=== PATIENT | female | born 1940 | race Caucasian/White ===

== ENCOUNTER 2017-05-27 10:00 | Inpatient (IN) | payer MEDICARE ==
[2017-06-04] MEDS ORDERED: Sodium Chloride 0.9% 10 ML ONE (06:24)
[2017-06-04] MEDS ORDERED: CEFAZOLIN/Water 2 GM/20 ML SYRINGE ONE (06:26)
[2017-06-04] MEDS ORDERED: Scopolamine 1.5 mg/72 hour Patch ONE (06:48)
[2017-06-04] MEDS ORDERED: Fentanyl 100 MCG/2 ML VIAL ONE (07:05)
[2017-06-04] MEDS ORDERED: Ondansetron HCl/PF 4 MG/2 ML Vial IVP PRN (09:31)
[2017-06-04] MEDS ORDERED: Promethazine HCl 25 MG/ML VIAL SLOW IVP PRN (09:31)
[2017-06-04] MEDS ORDERED: Promethazine HCl 25 MG/ML VIAL IM PRN ×2 (09:31→10:04)
[2017-06-04] MEDS ORDERED: Fentanyl 250 MCG/5 ML VIAL ONE (09:41)
--- NOTE | 2017-06-04 10:02 | OP ---
DATE OF PROCEDURE: 06/04/2017 SURGEON: Lior Diggs M.D. DATA GOVERNANCE CONSULTANT: Stephen. PROCEDURE: Removal of hardware L4-5, exploration of spinal fusion L4-5, L3-4 laminectomy, posterolat eral arthrodesis, demineralized bone matrix, local morselized autograft, pedicle screw instrumentatio n L3-4. PROCEDURE IN DETAIL: The patient was brought into the operating room, intubated. She was rolled in the prone position on gel-filled chest rolls. The previous incision was reopened and extended, and t he L3 through L5 region was identified. We identified the prior hardware and removed the nuts and ro ds. We explored the L4-5 region and it seemed to be solid. We next performed an L3-4 laminectomy wi thout complication and completely decompressed the neural elements. Pedicle screws were placed at L3 bilaterally using lateral fluoroscopic guidance. A sy was secured between L3 and L4 connected by n uts which were final tightened. The wound was then extensively irrigated, immaculate hemostasis was secured. A combination of demineralized bone matrix and local morselized autograft was laid over the laminar and posterolateral surfaces for the purpose of arthrodesis. Vancomycin powder was applied a nd the wound was closed in anatomic layers.
[2017-06-04] MEDS ORDERED: Mag-Al 1200 mg/1200 mg/30 ML UDCUP PO PRN (10:04)
[2017-06-04] MEDS ORDERED: Ondansetron HCl/PF 4 MG/2 ML Vial IM PRN (10:04)
[2017-06-04] MEDS ORDERED: Acetaminophen 325 MG TAB PO PRN (10:04)
[2017-06-04] MEDS ORDERED: traMADol HCl 50 MG TAB PO PRN (10:04)
[2017-06-04] MEDS ORDERED: Promethazine HCl 12.5 MG SUPP PR PRN (10:04)
[2017-06-04] MEDS ORDERED: Acetaminophen 650 MG Suppository PR PRN (10:04)
[2017-06-04] MEDS ORDERED: Promethazine 25 MG TAB PO PRN (10:04)
[2017-06-04] MEDS ORDERED: Milk Of Magnesia 30 ML UDCUP PO PRN (10:04)
[2017-06-04] MEDS ORDERED: Morphine 4 MG/ML Carpuject SLOW IVP PRN (10:04)
[2017-06-04] MEDS ORDERED: Morphine 4 MG/ML VIAL ONE (10:19)
[2017-06-04] MEDS ORDERED: Propofol 200 MG/20 ML VIAL ONE (10:39)
[2017-06-04] MEDS ORDERED: Dexamethasone 20 MG/5 ML VIAL ONE (10:39)
[2017-06-04] MEDS ORDERED: Ondansetron HCl/PF 4 MG/2 ML Vial ONE (10:39)
[2017-06-04] MEDS ORDERED: Glycopyrrolate 0.2 MG/ML 5 ML SYRINGE ONE (10:39)
[2017-06-04] MEDS ORDERED: ePHEDrine/0.9% NaCl/PF SYRINGE 50 mg/10 ml ONE (10:39)
[2017-06-04] MEDS ORDERED: Lidocaine 1% PF 5 ML VIAL ONE (10:39)
[2017-06-04] MEDS ORDERED: Metoclopramide HCl 10 MG/2 ML VIAL ONE (10:39)
[2017-06-04] MEDS ORDERED: Cyclobenzaprine 10 MG TAB PO PRN (11:35)
[2017-06-04] MEDS ORDERED: Ipratropium Bromide 0.06% Nasal Inhaler 15ml EA NARE PRN (11:36)
[2017-06-04] MEDS ORDERED: Hydrochlorothiazide 25 MG TAB PO PRN (11:36)
[2017-06-04] MEDS: CEFAZOLIN/Water 2 GM/20 ML SYRINGE SLOW IVP SCH (13:38)
[2017-06-04] MEDS: tiZANidine HCl 4 MG TAB PO PRN ×2 (13:41→20:03)
[2017-06-04] MEDS: traMADol HCl 50 MG TAB PO PRN ×2 (13:41→20:03)
--- NOTE | 2017-06-04 14:45 | CON ---
DATE OF CONSULTATION: 06/04/2017 ADMITTING PHYSICIAN: Dr. Diggs CONSULTING PHYSICIAN: Dr. Jesse Redding HISTORY OF PRESENT ILLNESS: The patient is a 77-year-old female. She is status post symptomatic mirella dware removal from her lower back. She had surgery today. The patient has a long history of osteoar thritis. She is currently postoperative and doing well at this time. She has no medical complaints otherwise at this time, no chest pain or shortness of breath. She is slightly in pain, otherwise. As noted, the patient has a history of symptomatic back hardware. ALLERGIES: She is currently allergic to SULFA, ASPIRIN, CODEINE, SURGICAL GLUE and antihistamines. PAST SURGICAL HISTORY: Positive for right knee surgery, total knee replacement, partial hysterectomy , cholecystectomy, previous back surgery with hardware. She has also undergone rotator cuff surgery as well. PAST MEDICAL HISTORY: Medical history is otherwise noncontributory. SOCIAL/PERSONAL HISTORY: She is a . She does not smoke nor does she drink alcohol. She does l carolyn mostly alone. PHYSICAL EXAMINATION: VITAL SIGNS: Temperature 98.6, pulse 88, respirations 16, O2 sats 98%. GENERAL: She is alert, active, in no acute distress. She is status post postoperative involvement. She has limited mobility due to back pain. HEENT: Normocephalic, atraumatic. Sclerae and conjunctivae clear. Throat clear. NECK: Supple, full range of motion, no masses. LUNGS: Clear. HEART: Regular rate and rhythm without murmurs, gallops or rubs. ABDOMEN: Soft, nontender, bowel sounds are active. No hepatosplenomegaly is noted. NEUROLOGICAL: She does move all of her extremities well at this time. She follows commands well. IMPRESSION: Status post removal of symptomatic back hardware. PLAN: I will follow along with you medically. I appreciate the opportunity to work with you.
[2017-06-04 17:07] VITALS: BMI 41.8
[2017-06-04] MEDS: Sodium Chloride 0.9% 1,000 ML IV SCH (18:24)
[2017-06-04] MEDS: Hydroxychloroquine Sulfate 200 MG TAB PO SCH (18:25)
[2017-06-04] MEDS: Folic Acid 1 MG TAB PO SCH (20:04)
[2017-06-04] MEDS ORDERED: Simvastatin 40 MG TAB PO SCH (21:00)
[2017-06-04] MEDS ORDERED: Montelukast Sodium 10 mg Tablet PO SCH (21:00)
[2017-06-04] MEDS ORDERED: Ondansetron HCl/PF 4 MG/2 ML Vial SLOW IVP PRN (21:53)
[2017-06-04] MEDS ORDERED: Ondansetron ODT 4 MG TAB PO PRN (21:53)
[2017-06-05] MEDS: CEFAZOLIN/Water 2 GM/20 ML SYRINGE SLOW IVP SCH (00:08)
[2017-06-05] MEDS: Sodium Chloride 0.9% 1,000 ML IV SCH (00:14)
--- NOTE | 2017-06-05 08:06 | PRG ---
DATE OF SERVICE: 06/05/2017 Ms. Mayfield is doing well postop. She has minimal medical complaints. PHYSICAL EXAMINATION: VITAL SIGNS: Her temperature is 97.8, BP 115/68, respirations 18, O2 sat 95%. GENERAL: She is alert, active, in no distress. LUNGS: Clear. HEART: Reveals no murmur. ABDOMEN: Soft, nontender, bowel sounds are active. No hepatosplenomegaly noted. IMPRESSION: Stable postop course. PLAN: If the patient desires, she may be discharged today on her home medicines from [place]. Follow up with me on a p.r.n. basis.
[2017-06-05 08:25] VITALS: TEMP 98
[2017-06-05] MEDS ORDERED: Multivit, Therapeutic 1 TAB PO SCH (09:00)
[2017-06-05] MEDS ORDERED: Fluticasone Propionate Nasal Spray 16 gm Bottle NASAL SCH (09:00)
[2017-06-05] MEDS ORDERED: Loratadine 10 MG TAB PO SCH (09:00)
[2017-06-05] MEDS: Hydroxychloroquine Sulfate 200 MG TAB PO SCH (09:10)
[2017-06-05] MEDS: Folic Acid 1 MG TAB PO SCH (09:12)
[2017-06-05] MEDS: traMADol HCl 50 MG TAB PO PRN (14:22)
[2017-06-05 14:32] VITALS: BP 141/73
== END 2017-06-05 15:10 | disposition home health service (06) | DRG 460 ==
LOC: SURG A 06-04 06:03
PROVIDERS: ADMIT Neurological Surgery; ATTEND Neurological Surgery
PROC: 0SG10AJ Fusion of 2 or more Lumbar Vertebral Joints with Interbody Fusion Device, Posterior Approach, Anterior Column, Open Approach (ICD-10-PCS; principal; 2017-06-04)
PROC: 01NB0ZZ Release Lumbar Nerve, Open Approach (ICD-10-PCS; 2017-06-04)
PROC: 0SP004Z Removal of Internal Fixation Device from Lumbar Vertebral Joint, Open Approach (ICD-10-PCS; 2017-06-04)
DX: M48.061 Spinal stenosis, lumbar region without neurogenic claudication (principal); M06.9 Rheumatoid arthritis, unspecified; E78.5 Hyperlipidemia, unspecified; J45.909 Unspecified asthma, uncomplicated; Z88.5 Allergy status to narcotic agent; Z88.2 Allergy status to sulfonamides; Z88.8 Allergy status to other drugs, medicaments and biological substances
CPT/HCPCS: 76001; A4216; C1713; C1768; G8978-GP-CL; G8979-GP-CK; G8987-GO-CI; G8988-GO-CI; G8989-GO-CI; J1100; J2001; J2270; J2405; J2704; J2765; J3010; J3370; J3490; Q0162

== ENCOUNTER 2017-05-27 10:01 | Outpatient (CLI) | payer MEDICARE ==
[2017-05-27 11:46] LABS: Hemoglobin 13.6 g/dL (12.0-16.0); Mean Corpuscular HGB CONC 33.5 g/dL (32.0-36.0); Mean Corpuscular Hemoglobin 35.5 pg (27.0-31.0); Platelet Count 209 thou/uL (130-400); RBC Distribution Width 12.3 % (11.5-14.5); Red Blood Cell (RBC) Count 3.84 mill/uL (4.20-5.40); White Blood Cell (WBC) Count 4.3 thou/uL (4.8-10.8)
[2017-05-27 12:09] LABS: Anion Gap 11 mmol/L (10-20); BUN (Urea Nitrogen) 11 mg/dL (9.8-20.1); Calc. Creatinine Clearance 0 mL/min (70-130); Calcium 9.4 mg/dL (7.8-10.44); Carbon Dioxide 25 mmol/L (23-31); Chloride 107 mmol/L (98-107); Estimated GFR-MDRD 83; Glucose 87 mg/dL (83-110); Sodium 139 mmol/L (136-145)
== END 2017-05-27 10:02 | disposition home or self-care (01) ==
LOC: LABBT 10:01
PROVIDERS: ATTEND Neurological Surgery
DX: Z01.818 Encounter for other preprocedural examination (principal); M48.061 Spinal stenosis, lumbar region without neurogenic claudication
CPT/HCPCS: 80048; 85027; 93005; 93010

== ENCOUNTER 2017-06-25 15:16 | Outpatient (CLI) | payer MEDICARE ==
--- NOTE | 2017-06-25 16:06 | RAD ---
LUMBAR SPINE TWO VIEWS: 06/25/17 HISTORY: 77-year-old female with followup surgery for lumbar degenerative disc disease. COMPARISON: 09/01/13. FINDINGS: New pedicle screw placement changes noted at L4 and L5 and a partially lumbarized S1. Generalized spo ndylosis. No significant malalignment. IMPRESSION: Pedicle screw placement changes with fusion at L4, L5 and partially lumbarized S1. No significant mal alignment. Evidence for spondylosis. POS: [facility]
== END 2017-06-25 15:17 | disposition home or self-care (01) ==
LOC: TBSIIMAG 15:16
PROVIDERS: ATTEND Physician Assistant
DX: M51.36 Other intervertebral disc degeneration, lumbar region (principal); M47.896 Other spondylosis, lumbar region; Z98.1 Arthrodesis status
CPT/HCPCS: 72100

== ENCOUNTER 2017-08-18 16:03 | Outpatient (CLI) | payer MEDICARE ==
--- NOTE | 2017-08-18 16:57 | RAD ---
LUMBAR SPINE: 08/18/17 Two views. INDICATIONS: Followup surgery. Comparison made to films of 06/25/17. Pedicle screws and rods transfix L4 and L5. There are pedicle screws at S1 without rods. Disc implant at L5-S1 again noted. There is no change in alignment. No change in hardware. IMPRESSION: Findings are stable from exam of 06/25/17. POS: [facility]
== END 2017-08-18 16:04 | disposition home or self-care (01) ==
LOC: TBSIIMAG 16:03
PROVIDERS: ATTEND Neurological Surgery
DX: Q76.2 Congenital spondylolisthesis (principal)
CPT/HCPCS: 72100

== ENCOUNTER 2018-02-01 14:18 | Outpatient (CLI) | payer MEDICARE | END 2018-02-01 14:19 | disposition home or self-care (01) | LOC: BICULT 14:18 | PROVIDERS: ATTEND Family Medicine | DX: R22.43 Localized swelling, mass and lump, lower limb, bilateral (principal) | CPT/HCPCS: 93970 ==

== ENCOUNTER 2018-04-27 14:26 | Outpatient (CLI) | payer MEDICARE ==
--- NOTE | 2018-04-27 17:14 | RAD ---
TWO VIEWS LUMBAR SPINE 04/27/18 HISTORY: Back pain during rehab. History of prior back surgery. COMPARISON: 08/18/17. FINDINGS: There are five nonribbearing lumbar type vertebral bodies. Bipedicular screws with posterior sy agai n transfix the L4 and L5 vertebral bodies. Pedicle screws without posterior rods are seen within S1. Intradiscal prosthesis is again seen at the L5-S1 level and unchanged in position. No perihardware zahra cency is seen. Laminectomy defect is seen at L4-5 level. Mild degenerative changes are again noted in the spine. There is no fracture or subluxation involving the lumbar spine. Vascular calcifications s een in the abdominal aorta and iliac arteries. IMPRESSION: Stable postsurgical changes lower lumbar spine. POS: [facility]
== END 2018-04-27 14:27 | disposition home or self-care (01) ==
LOC: TBSIIMAG 14:26
PROVIDERS: ATTEND Neurological Surgery
DX: M51.36 Other intervertebral disc degeneration, lumbar region (principal); Z98.890 Other specified postprocedural states
CPT/HCPCS: 72100

== ENCOUNTER 2018-06-17 11:38 | Outpatient (CLI) | payer MEDICARE ==
--- NOTE | 2018-06-17 12:43 | RAD ---
LUMBAR SPINE TWO VIEWS: INDICATION: post op exam Comparison: 04-25-18 IMPRESSION: Spinal instrumentation spanning L4 through S1 appears similar. Spinal alignment is within normal limi ts. The moderate to severe spondylosis is stable. IMPRESSION: Stable post-operative lumbar spine. POS: [facility]
== END 2018-06-17 11:39 | disposition home or self-care (01) ==
LOC: TBSIIMAG 11:38
PROVIDERS: ATTEND Neurological Surgery
DX: M51.36 Other intervertebral disc degeneration, lumbar region (principal); Z98.890 Other specified postprocedural states
CPT/HCPCS: 72100

== ENCOUNTER 2018-07-22 18:12 | Emergency (ER) | payer MEDICARE ==
--- NOTE | 2018-07-22 20:19 | RAD ---
THREE VIEWS FACIAL BONES 07/22/18 HISTORY: Fall. Injury. Pain. FINDINGS: Symmetric aeration of the paranasal sinuses. Symmetric aeration of the mastoid air cells. Osseous mar gins of the orbits and sinuses are maintained. No evidence of a maxillofacial fracture. The calvarium appears to be intact. IMPRESSION: No fracture. POS: [facility]
[2018-07-22] MEDS ORDERED: Adacel (T-DAP) 0.5 ML SYRINGE ONE (21:07)
== END 2018-07-22 21:32 | disposition home or self-care (01) ==
LOC: ERS 18:12
DX: S02.5XXA Fracture of tooth (traumatic), initial encounter for closed fracture (principal); S00.83XA Contusion of other part of head, initial encounter; S00.511A Abrasion of lip, initial encounter; F32.9 Major depressive disorder, single episode, unspecified; W19.XXXA Unspecified fall, initial encounter
CPT/HCPCS: 70150; 90471; 90715

== ENCOUNTER 2018-09-21 13:33 | Outpatient (CLI) | payer MEDICARE ==
[2018-09-21 14:17] LABS: Estimated GFR-MDRD - POC Greater than 90
--- NOTE | 2018-09-21 15:19 | RAD ---
XR Lumbar Spine Bending Min 4V HISTORY: Back surgery one year ago. Shooting pain down left leg. COMPARISON: 06/17/2018 study. FINDINGS: This examination included flexion and extension views. Bilateral pedicle screws have been p laced at L4, L5 and S1 in keeping with maintain the same nomenclature of disc levels. The L4 and L5 pedicle screws are connected with vertical connecting rods. There is no abnormal motion in flexion or extension. Disc narrowing at the vertebral body levels are all stable. Pedicle screws are connected with vertical connecting rods. IMPRESSION: Stable postop change.
--- NOTE | 2018-09-21 16:21 | MRI ---
MRI lumbar spine with and without gadolinium contrast HISTORY: Low back pain with left leg radiculopathy. Back surgery one year ago. FINDINGS: For the purposes of this exam, the normal-appearing conus medullaris is at the T12-L1 level . Transitional vertebra is designated as the first sacral level, with postoperative changes at the L4-5-S1 levels. T12-L1: Mild disc space narrowing and posterior disc bulge. Mild effacement of the ventral aspect of the thecal sac. L1-2: Disc space narrowing. Minimal degenerative retrolisthesis. Posterior disc bulge and circumferen tial degenerative changes. Mild stenosis of the central canal. Moderate stenosis of each neural foramen. L2-3: Disc space narrowing and mild posterior disc bulge. Circumferential degenerative changes. Moder ate stenosis of the central canal. Moderate right and severe left foraminal stenoses. L3-4: Disc space narrowing. Mild posterior disc bulge and prominent circumferential degenerative abdullahi ges. Severe stenosis of the central canal. Moderate right and moderate to severe left foraminal stenoses. L4-5: Posterior operative fixation. Disc space narrowing. Mild disc bulge. Thecal sac is patent. Righ t and left lateral components of disc bulge encroach upon each L4 neural foramen within the neural foramina. Posterior to the thecal sac, a vertically oriented lobular homogeneous fluid signal intensi ty mass measures up to 3.3 cm in length x 3.2 cm x 2.7 cm depth. Scarring is present throughout the posterior soft tissues. L5-S1: Postoperative changes. Posterior degenerative changes. Central canal and neural foramina remai n patent. IMPRESSION: Extensive postoperative changes lower lumbar spine. Well-circumscribed homogeneous postop erative fluid collection remains in the posterior tissues at the L4-5 level, measuring up to 3.3 cm. No significant neural compression from the fluid collection is apparent. Multilevel degenerative changes. Central canal and foraminal stenoses are most severe at the L3-4 lev el, immediately superior to the operative fixation levels. Transcribed Date/Time: 09/21/2018 4:44 PM
== END 2018-09-21 13:34 | disposition home or self-care (01) ==
LOC: TBSIIMAG 13:33
PROVIDERS: ATTEND Anesthesiology Pain Medicine
DX: M96.1 Postlaminectomy syndrome, not elsewhere classified (principal); M47.26 Other spondylosis with radiculopathy, lumbar region; M48.061 Spinal stenosis, lumbar region without neurogenic claudication
CPT/HCPCS: 72120; 72158; 82565

== ENCOUNTER 2019-04-04 11:26 | Day surgery (SDC) | payer MEDICARE ==
[2019-04-01 12:45] VITALS: BMI 42.5
[~2019-04-04 11:26] MED LIST: Dexamethasone 20 MG/5 ML VIAL ONE; Ondansetron PF 4 MG/2 ML Vial ONE; PROPOFOL 200 MG/20 ML VIAL ONE
[2019-04-04] MEDS ORDERED: Bupivacaine/Epinephrine 0.5% 10 ML VIAL ONE ×3 (12:24→13:01)
[2019-04-04] MEDS ORDERED: Sodium Chloride 0.9% 0 ML ONE (12:24)
[2019-04-04] MEDS ORDERED: Lidocaine 2% PF 5 ML VIAL ONE (12:57)
[2019-04-04] MEDS ORDERED: Lidocaine 2% w/Epinephrine 1:200K 20 ML VIAL ONE (12:57)
--- NOTE | 2019-04-04 18:45 | OP ---
DATE OF PROCEDURE: 04/04/2019 PREOPERATIVE DIAGNOSES: 1. Chronic pain syndrome. 2. Post-laminectomy syndrome. 3. Chronic lumbar radiculopathy. POSTOPERATIVE DIAGNOSES: 1. Chronic pain syndrome. 2. Post-laminectomy syndrome. 3. Chronic lumbar radiculopathy. PROCEDURES PERFORMED: 1. Implantation of a right spinal cord stimulation electrode array. 2. Implantation of left spinal cord stimulation electrode array. 3. Implantation of internal pulse generator. 4. Intraoperative programming. 5. Fluoroscopic guidance. ANESTHESIA: TIVA. COMPLICATIONS: None. SUMMARY: Risks and benefits were discussed, informed consent was obtained, was taken to the OR prepped and draped with standard fashion with Hibiclens and alcohol and let dry. Fluoroscopic guidance was utilized to identify the thoracolumbar junction. The T12-L1 interspace was chosen as interest into the epidural space. Local anesthetic was used for skin and subcutaneous anesthesia. An incision was carried out over the spinous processes of L1-L2. Blunt dissection to the spinous processes using the Bovie and blunt dissection for hemostasis. The supplied Tuohy needles were advanced down to the ligamentum flavum T12-L1, loss of resistance technique, right paramedian approach, one pass. No paresthesia, CSF, or heme. Note that during needle placement, the patient was awake and conversive. The right electrode was then placed with the patient awake such that the cephalad electrode was placed at the mid body of T7 over the dorsal columns. The left electrode was then placed in an identical fashion to allow parallel with the right. Intraoperative programming with multiple electrode arrays, frequencies, and pulse, achieved appropriate back in bilateral left greater than right, leg stimulation concordant and overlapping with the patient's pain pattern. The stylets were removed intact. The needles were removed intact. Anchors were then slipped over the lead and each anchor was tied to the fascia and locked into place. Each anchor was secured to the fascia using two 2-0 silk sutures. Attention was then turned to the right buttocks. Incision was made after adequate local anesthesia, and the fascia was easily identified, undermined, and a pocket was made to house the internal pulse generator. Tunneling was accomplished between incisions using the straw tunneler. The leads were passed through the straw. Straw was removed. Leads were connected to the IPG. All set screws were tightened using the appropriate supplied ratcheted screwdriver. All leads were checked for appropriate impedance. The IPG was placed in the pocket riding side out. All counts were correct x2. Closure was accomplished in layers using interrupted 2-0 Vicryl and the skin was closed with a running subcuticular 3-0 Rapide. Mastisol, Steri-Strips, 4x4s, and Medipore tape were used for dressing. No Dermabond was utilized as the patient is allergic. Also, the Medipore tape had been tested on the patient previously and she was deemed not to be allergic to this tape as well as the Steri-Strips. Job ID: [id number]
--- NOTE | 2019-04-05 09:12 | RAD ---
Radiograph thoracic spine 1 view: DATE: 04/05/2019 HISTORY: 78-year-old female undergoing spinal cord stimulator placement FINDINGS: Single small [id number] frontal projection of thoracic spine demonstrate stimulator leads ascendin g midline thoracic spine with distal tip at level labeled as T7 IMPRESSION: Dorsal column spinal cord stimulator lead placement.
== END 2019-04-04 16:20 | disposition home or self-care (01) ==
LOC: SDC 11:26
PROVIDERS: ATTEND Anesthesiology Pain Medicine
PROC: 0JH70BZ Insertion of Single Array Stimulator Generator into Back Subcutaneous Tissue and Fascia, Open Approach (ICD-10-PCS; principal; 2019-04-04)
PROC: 00HU3MZ Insertion of Neurostimulator Lead into Spinal Canal, Percutaneous Approach (ICD-10-PCS; 2019-04-04)
DX: G89.4 Chronic pain syndrome (principal); M96.1 Postlaminectomy syndrome, not elsewhere classified; M54.16 Radiculopathy, lumbar region; Z88.1 Allergy status to other antibiotic agents; Z88.2 Allergy status to sulfonamides; Z88.5 Allergy status to narcotic agent; Z88.8 Allergy status to other drugs, medicaments and biological substances; Z91.041 Radiographic dye allergy status
CPT/HCPCS: 63650 ×2; 63685; 72020; 76000; C1767; C1778; J0131; J0744; J1100; J2001; J2405; J2704; J3490

== ENCOUNTER 2020-01-13 18:34 | Inpatient (IN) | payer MEDICARE, OTHER ==
[2020-01-13] MEDS ORDERED: Morphine 4 MG/ML VIAL ONE (19:24)
[2020-01-13] MEDS ORDERED: Promethazine HCl 25 MG/ML VIAL ONE (19:27)
--- NOTE | 2020-01-13 19:28 | RAD ---
ONE VIEW CHEST: 01/13/20 HISTORY: Trauma. Fall. Pain. FINDINGS: Normal cardiac silhouette. Slightly elongated aorta. Pulmonary vessels and hilum are normal. Costophr enic angles are clear. Chronic lung parenchymal changes are suspected. No definite masses or consolid ation. There is no pneumothorax or acute osseous abnormalities. There appears to be a lucency projecting over the right hemithorax which may be associated with the a nterior chest wall. Better interrogation with a postcontrast chest CT is recommended. Dorsal column stimulators are noted. IMPRESSION: Ill-defined lucency projecting over the right chest wall, incompletely evaluated. Postcontrast chest CT is recommended. POS: [facility]
--- NOTE | 2020-01-13 19:35 | RAD ---
ONE VIEW PELVIS: 01/13/20 HISTORY: Fall. Trauma. Pain. FINDINGS: there appears to be fusion involving the lumbosacral junction. Generator for a dorsal column stimulat or is identified. The visualized sacral ala and bony pelvis appear to be intact. There are degenerative changes in the symphysis pubis. There is a left femoral neck fracture. The visualized right hip does not demonstrate posttraumatic change. IMPRESSION: Left femoral neck fracture. POS: [facility]
--- NOTE | 2020-01-13 19:42 | RAD ---
LEFT HIP TWO VIEWS: 01/13/20 HISTORY: Fall. Pain. FINDINGS: There is a left femoral neck fracture. IMPRESSION: Left femoral neck fracture. POS: [facility]
[2020-01-13] MEDS ORDERED: Cyclobenzaprine 10 MG TAB ONE (20:44)
[2020-01-13] MEDS ORDERED: Ondansetron ODT 4 MG TAB SL PRN (21:47)
[2020-01-13] MEDS ORDERED: Ondansetron PF 4 MG/2 ML Vial IVP PRN ×2 (21:47→22:51)
[2020-01-13] MEDS ORDERED: Acetaminophen 325 MG TAB PO PRN (21:47)
--- NOTE | 2020-01-13 21:55 | CT ---
CT PELVIS 01/13/20 PROVIDED CLINICAL HISTORY: Femoral neck fracture, evaluate for associated bone lesion. FINDINGS: There is a conspicuously apex anteriorly angulated fracture involving the subcapital region of the le ft femoral neck. There is no evidence for associated lytic change to suggest a pathologic fracture. N o additional fracture is evident. No concerning lytic or blastic lesions are seen elsewhere. Postoper ative changes involving the lower lumbar spine are partially visualized. There is moderate rectal fec al retention. There is a fat containing right inguinal hernia. Vascular calcifications demonstrated. IMPRESSION: Displaced left femoral neck fracture, without evidence for other acute osseous abnormality. POS: [facility]
--- NOTE | 2020-01-13 22:16 | HP ---
REQUESTING PHYSICIAN: Dr. Crabtree. ATTENDING SURGEON: Dr. Jasso. CONSULTATIONS: Orthopedics, Dr. You. HISTORY OF PRESENT ILLNESS: The patient is a 79-year-old woman who was at home when she fell. She is not sure why she fell. She knows that she had become dizzy, lightheaded, having racing heart. She suddenly had pain in her left hip and groin. She was unable to contact anyone for about an hour when she was finally able to reach her car keys and was able to use her vehicle horn to signal her neighbor who notified EMS. Due to [place] highways, she was flown to our facility to undergo evaluation and examination, was noted to have a left femoral neck fracture, at which time, we are asked to evaluate the patient for admission and obtain Orthopedic consultation. Of note, the patient has recently undergone large excisional biopsy from her right chest for melanoma and is doing home care for this cavernous wound. The patient denied any loss of consciousness or striking her head. ALLERGIES: ASPIRIN, SULFA MEDICATIONS, CEPHALOSPORINS, CLINDAMYCIN, CODEINE, HYDROCODONE, IODINE, AND SURGICAL GLUE. CURRENT MEDICATIONS: Simvastatin, Plaquenil, Singulair, and Zoloft. PAST MEDICAL HISTORY: Melanoma, rheumatoid arthritis, spinal stenosis, and depression. PAST SURGICAL HISTORY: Excisional biopsy, lymph node excision, tonsillectomy, cholecystectomy, partial hysterectomy, knee surgery x3, bilateral shoulder surgeries and back surgeries x4, to include spinal stimulator. SOCIAL HISTORY: Patient quit smoking greater than 3 years ago. She denies drug or alcohol use. She lives independently at home. REVIEW OF SYSTEMS: 10-point review of systems is negative except otherwise stated. PHYSICAL EXAMINATION: VITAL SIGNS: Blood pressure 189/95, heart rate 91, respirations 22, oxygen saturation is 94% on 2 L via nasal cannula, and temperature is 98.1. HEENT: Head is normocephalic and atraumatic. Eyes, extraocular motions intact. PERRLA bilaterally. Ears are atraumatic without discharge. Nose is atraumatic without discharge. Oropharynx is clear. NECK: Nontender. Trachea is midline with no JVD. CHEST: Clear to auscultation bilaterally. The patient right anterior chest/ breast has approximately 7 cm incision that is approximately 6 cm deep, appears to go to the chest wall, which the patient reports is how Dr. Jones described it. It does have a large area of surrounding redness, which the patient reports has improved since her incision site was cared for yesterday. Again, she reports that it is believed that this was a reaction to adhesives. There was no purulent discharge. HEART: Regular rate and rhythm. ABDOMEN: Soft, nontender with active bowel sounds. EXTREMITIES: Neurovascularly intact x4. PELVIS: Stable with tenderness to palpation to her left hip consistent with her fracture. BACK: By report is atraumatic and nontender. LABORATORY FINDINGS: All pending. RADIOGRAPHIC FINDINGS: AP chest x-ray shows an ill-defined lucency projecting over the right chest wall, incompletely evaluated. Postcontrast chest CT is recommended. I did discuss with Dr. York this was the location of her cavernous wound. AP pelvis shows a left femoral neck fracture. Views of the left hip again show the left femoral neck fracture. ASSESSMENT: 1. Status post ground level fall. 2. Left femoral neck fracture. 3. History of melanoma, rheumatoid arthritis. 4. Large chest wall soft tissue defect from melanoma biopsy. PLAN: Will be to admit the patient to the surgical floor. In light of her melanoma and some haziness on her hip radiograph, we will get a CT to assess whether this could be a metastasis and pathologic fracture. Otherwise, the patient will be made n.p.o. after midnight in preparation for surgery tomorrow. The patient will have pulmonary toilet, gastritis, mechanical VTE prophylaxis, pain control and resume her home medications as soon as med reconciliation is completed. The evaluation, examination, laboratory, and radiographic findings will be discussed with Dr. Jasso after this dictation. The Emergency Room has notified Dr. You of this patient and will advise him of CT findings when completed. Job ID: [id number] [facility]
[2020-01-13 22:20] LABS: Albumin 3.7 g/dL (3.4-4.8); Alkaline Phosphatase 49 U/L (40-110); Anion Gap 9 mmol/L (10-20); BUN (Urea Nitrogen) 10 mg/dL (9.8-20.1); Bilirubin, Total 0.6 mg/dL (0.2-1.2); Calc. Creatinine Clearance 0 mL/min (70-130); Calcium 8.2 mg/dL (7.8-10.44); Carbon Dioxide 24 mmol/L (23-31); Chloride 106 mmol/L (98-107); Estimated GFR-MDRD 82; Globulin 2.4 g/dL (2.4-3.5); Glucose 127 mg/dL (83-110); Potassium 3.7 mmol/L (3.5-5.1); Protein, Total 6.1 g/dL (5.8-8.1); Sodium 135 mmol/L (136-145)
[2020-01-13 22:21] LABS: ALT (SGPT) 21 U/L (8-55); AST (SGOT) 22 U/L (5-34)
[2020-01-13] MEDS ORDERED: Ondansetron ODT 4 MG TAB PO PRN (22:51)
[2020-01-13] MEDS ORDERED: Dextrose 50% Abboject 50 ML SYRINGE SLOW IVP PRN (22:51)
[2020-01-13] MEDS ORDERED: Dextrose 5% in Water 1,000 ML IV PRN (22:51)
[2020-01-13] MEDS ORDERED: hydrALAZINE 20 MG/ML VIAL SLOW IVP PRN (22:51)
[2020-01-13] MEDS ORDERED: traMADol HCl 50 MG TAB PO PRN ×2 (22:51)
[2020-01-13 23:03] LABS: #Lymphocytes 0.7 thou/uL (1.20-3.40); #Neutrophils 6.9 thou/uL (1.40-6.50); %Basophils 0.1 % (0.0-1.0); %Eosinophils 0.5 % (0.0-10.0); %Lymphocytes 7.6 % (21.0-51.0); %Neutrophils 79.8 % (42.0-75.0); Hemoglobin 13.1 g/dL (12.0-16.0); Mean Corpuscular HGB CONC 34.4 g/dL (32.0-36.0); Mean Corpuscular Hemoglobin 35.8 pg (27.0-31.0); Mean Platelet Volume 7.7 fL (7.4-10.4); Platelet Count 183 thou/uL (130-400); RBC Distribution Width 12.7 % (11.5-14.5); Red Blood Cell (RBC) Count 3.66 mill/uL (4.20-5.40); White Blood Cell (WBC) Count 8.7 thou/uL (4.8-10.8)
[2020-01-13 23:07] LABS: INR-International Normal Ratio 1.1; PTT 26.6 sec (22.9-36.1); Prothrombin Time 14.7 sec (12.0-14.7)
[2020-01-13 23:11] LABS: Magnesium 1.8 mg/dL (1.6-2.6); Phosphorus 2.5 mg/dL (2.3-4.7)
[2020-01-13 23:23] VITALS: BMI 42.1
[2020-01-13] MEDS: Sodium Chloride 0.9% 1,000 ML IV SCH (23:29)
[2020-01-13] MEDS: Cyclobenzaprine 10 MG TAB PO PRN (23:29)
[2020-01-13] MEDS: Acetaminophen 325 MG TAB PO SCH (23:29)
[2020-01-13] MEDS ORDERED: Famotidine 20 MG TAB PO SCH (23:30)
[2020-01-14] MEDS: Sodium Chloride 0.9% 1,000 ML IV SCH ×4 (00:25→17:53)
[2020-01-14 05:44] LABS: #Basophils 0.1 thou/uL (0.0-0.2); #Eosinphils 0.2 thou/uL (0.0-0.7); #Lymphocytes 1.2 thou/uL (1.20-3.40); #Monocytes 0.9 thou/uL (0.11-0.59); #Neutrophils 4.1 thou/uL (1.40-6.50); %Basophils 0.8 % (0.0-1.0); %Eosinophils 2.8 % (0.0-10.0); %Lymphocytes 18.5 % (21.0-51.0); %Monocytes 14.2 % (0.0-10.0); %Neutrophils 63.8 % (42.0-75.0); Hemoglobin 12.3 g/dL (12.0-16.0); Mean Corpuscular HGB CONC 32.8 g/dL (32.0-36.0); Mean Corpuscular Hemoglobin 34.6 pg (27.0-31.0); Platelet Count 187 thou/uL (130-400); Red Blood Cell (RBC) Count 3.55 mill/uL (4.20-5.40); White Blood Cell (WBC) Count 6.5 thou/uL (4.8-10.8)
[2020-01-14] MEDS: Acetaminophen 325 MG TAB PO SCH ×4 (06:22→23:03)
[2020-01-14 06:31] LABS: Anion Gap 12 mmol/L (10-20); BUN (Urea Nitrogen) 8 mg/dL (9.8-20.1); Calc. Creatinine Clearance 153 mL/min (70-130); Carbon Dioxide 21 mmol/L (23-31); Chloride 108 mmol/L (98-107); Estimated GFR-MDRD Greater than 90; Glucose 108 mg/dL (83-110); Phosphorus 3.4 mg/dL (2.3-4.7); Sodium 137 mmol/L (136-145)
[2020-01-14] MEDS ORDERED: Non-Formulary Item 1 EACH (Sertraline Hcl [Sertraline Hcl] 50 MG) PO SCH (09:00)
[2020-01-14] MEDS ORDERED: Montelukast Sodium 10 mg Tablet PO SCH (09:00)
[2020-01-14] MEDS ORDERED: diphenhydrAMINE 50 MG/ML VIAL IVP SCH (09:45)
[2020-01-14] MEDS: Morphine 2 MG/ML VIAL SLOW IVP PRN (11:46)
[2020-01-14] MEDS ORDERED: Lidocaine 1% PF 5 ML VIAL ONE (13:04)
[2020-01-14] MEDS ORDERED: Ondansetron PF 4 MG/2 ML Vial ONE (13:04)
[2020-01-14] MEDS ORDERED: PROPOFOL 200 MG/20 ML VIAL ONE (13:04)
[2020-01-14] MEDS ORDERED: PHENYLEPHRINE-NS 100 MCG/ML 10 ML SYRINGE ONE (13:04)
[2020-01-14] MEDS ORDERED: Glycopyrrolate 0.2 MG/ML 5 ML SYRINGE ONE (13:04)
[2020-01-14] MEDS ORDERED: EPHEDRINE 25 MG/5 ML SYRINGE ONE (13:04)
[2020-01-14] MEDS ORDERED: Rocuronium Bromide 10 MG/ML (10ML VIAL) ONE (13:04)
[2020-01-14] MEDS ORDERED: Fentanyl 250 MCG/5 ML VIAL ONE (13:27)
--- NOTE | 2020-01-14 13:54 | PRG ---
DATE OF SERVICE: 01/14/2020 SUBJECTIVE: The patient was seen this morning during rounds. She was lying in bed with no signs of acute distress. She reported that she was having itching on her anterior chest, and reported she felt like it was from the tape used to secure her right-sided chest wound. The patient states she recently had a melanoma removed by Dr. Jones and that the glue was causing her issues. Upon talking to Dr. Jones this morning, he reported that her right anterior chest wall wound was infected, and subsequently, he opened the wound and placed the patient on clindamycin and Levaquin. OBJECTIVE: VITAL SIGNS: Temperature 97.6, pulse 84, respirations 16, oxygen saturation 97% on 1 L nasal cannula, and blood pressure 135/73. GENERAL: Well-appearing elderly female, lying in bed with no signs of acute distress. PULMONARY: Equal chest rise and fall. Clear breath sounds bilaterally. No signs of acute respiratory distress. CARDIAC: Regular rate and rhythm. GI: Abdomen is soft, nontender, and nondistended. EXTREMITIES: 2+ pulses in all extremities. Gross motor and sensation intact. No significant swelling noted. NEUROLOGIC: GCS is 15. SKIN: The patient has right anterior chest wall and right axilla wounds status post melanoma with wet-to-dry dressing in place. There is erythema around the edges of the wounds. There is no pus noted inside of the wounds. LABORATORY FINDINGS: White count 6.7, hemoglobin 12.3, hematocrit 37.4, and platelets 187. Sodium 137, potassium 4.0, chloride 108, bicarb 21, BUN 8, creatinine 0.62, glucose 108, phosphorus 3.4, and magnesium 2.0. DIAGNOSTIC FINDINGS: There are no new diagnostic findings to report. ASSESSMENT: 1. Status post mechanical fall from standing. 2. R anterior chest wall post op infection, present on admission. 3. History of melanoma to right chest, rheumatoid arthritis, spinal stenosis, and depression. PLAN: Continue n.p.o. as the patient is going to the OR today with Dr. You for fixation of her left femoral neck fracture. Continue normal saline at 120/ hour. We will consider discontinuing postoperatively if the patient is taking a good diet. I did discuss with Dr. Jones this morning that the patient's right anterior chest wall wound was infected. Subsequently, he opened it up. It had nothing to do with her reaction to the skin glue. He reported pus within the wound and placed the patient on clindamycin and levofloxacin. Upon our review, the patient is allergic to clindamycin. Cultures were sent, demonstrating the patient is growing out gram-negative rods. Subsequently, we have continued the Levaquin. We will ask Wound Care to see the patient. For now, we will continue wet-to-dry daily dressing changes and this was okay with Dr. Jones as well. The patient reports she is to see Dr. Hernandez early next week. We will contact Dr. Hernandez on Thursday to advise of her hospital admission. Postoperatively, the patient will work with Physical and Occupational Therapy and need placement in acute rehab facility. [facility] [id number] [facility]
[2020-01-14] MEDS ORDERED: Morphine 2 MG/ML VIAL ONE ×2 (15:26→16:28)
--- NOTE | 2020-01-14 15:38 | CON ---
DATE OF CONSULTATION: 01/14/2020 HISTORY OF PRESENT ILLNESS: Ms. Mayfield is a 79-year-old white female, who lives at home and independently takes care of herself. She has a history of rheumatoid arthritis, spinal stenosis. She has had multiple surgeries on her spine, has a spinal stimulator. She has a history of depression and melanoma. The patient states that she got dizzy and fell, had immediate pain in the left hip and groin area, was unable to ambulate. She was brought to the emergency room last night. X-rays revealed displaced femoral neck fracture of the left hip. The patient states she had no problems with her left hip prior to the fall. PAST MEDICAL HISTORY: Rheumatoid arthritis, spinal stenosis, melanoma, and depression. CURRENT MEDICATIONS: 1. Simvastatin. 2. Plaquenil. 3. Singulair. 4. Zoloft. ALLERGIES: TO ASPIRIN, SULFA, CEPHALOSPORINS, CLINDAMYCIN, CODEINE, HYDROCODONE, IODINE, SURGICAL GLUE. PAST SURGICAL HISTORY: Excisional biopsy of the lymphoma on the right chest, lymph node excision, tonsillectomy, cholecystectomy, partial hysterectomy, three knee surgeries including total knee and revision total knee, bilateral shoulder surgeries, back surgeries x4. PHYSICAL EXAMINATION: GENERAL: The patient is a very pleasant female, alert and oriented x3, cooperative with the examination. VITAL SIGNS: Her last vital signs; temperature 98.6, pulse 88, respiratory rate 16, blood pressure 155/71, O2 saturation is 96% with nasal cannula at 2 L. HEENT: Unremarkable for age. Cranial nerves 2 through 12 are grossly intact. NECK: Has good range of motion with minimal pain. LUNGS: Clear. HEART: Regular rate and rhythm. ABDOMEN: Soft and nontender. Bowel sounds positive. : Not done. EXTREMITIES: The patient is able to move both upper extremities and the right lower extremity without pain. No attempts were made at movement of the left lower extremity. Left lower extremity is neurovascularly intact. Skin is in good condition over the lateral aspect of the left hip and thigh. IMAGING STUDIES: X-rays of the left hip show a displaced femoral neck fracture of the left hip, no arthritic changes in the hip joint. LABORATORY DATA: CBC shows white count of 6.5, hemoglobin 12.3, hematocrit 37.4. Chloride is minimally high at 108. Remaining values are normal. PT is 14.7, INR 1.1, PTT 26.6. IMPRESSION: 1. Displaced femoral neck fracture of the left hip. 2. Rheumatoid arthritis. 3. Spinal stenosis. 4. Melanoma, recently excised. 5. Depression. PLAN: The patient will require a proximal femoral replacement of the left hip, which will be a bipolar prosthesis. I went over the procedure with the patient and the daughter, and they agreed to the procedure, and we will schedule this for later today. Job ID: [id number]
[2020-01-14 16:04] LABS: SARS-CoV-2 MS2 Positive; SARS-CoV-2 N Gene Negative; SARS-CoV-2 S Gene Negative; SARS-CoV-2 by NAA Not Detected (NotDetected); SARS-CoV-2 orf1ab Negative
[2020-01-14] MEDS ORDERED: Morphine 4 MG/ML VIAL ONE (16:46)
[2020-01-14] MEDS ORDERED: Fentanyl 100 MCG/2 ML VIAL ONE ×2 (17:58→20:14)
[2020-01-14] MEDS ORDERED: Lidocaine 2% Jelly 5 ML TUBE ONE (17:59)
[2020-01-14] MEDS ORDERED: Vancomycin 1 GM/200 ML BAG ONE ×2 (18:08→18:11)
[2020-01-14] MEDS ORDERED: Doxycycline 100 MG CAP PO SCH ×2 (18:30→21:00)
[2020-01-14] MEDS ORDERED: Gentamicin 80 MG/2 ML VIAL ONE (18:56)
[2020-01-14] MEDS ORDERED: Bupivacaine HCl 0.5%/Epinephrine 1:200,000/PF 30 ml Vial ONE (19:11)
[2020-01-14] MEDS ORDERED: Fleet Enema 133 ML BOT PR PRN (20:00)
[2020-01-14] MEDS ORDERED: Ondansetron PF 4 MG/2 ML Vial IVP PRN (20:00)
[2020-01-14] MEDS ORDERED: Ondansetron ODT 4 MG TAB PO PRN (20:00)
[2020-01-14] MEDS ORDERED: VANCOMYCIN HCL IVPB SCH (20:00)
[2020-01-14] MEDS ORDERED: SODIUM CHLORIDE 0.9% IVPB SCH (20:00)
[2020-01-14] MEDS ORDERED: Cepastat Lozenges 1 LOZ PO PRN (20:00)
[2020-01-14] MEDS ORDERED: Bisacodyl 10 MG SUPP PR PRN (20:00)
[2020-01-14] MEDS ORDERED: Milk Of Magnesia 30 ML UDCUP PO PRN (20:00)
[2020-01-14] MEDS ORDERED: Promethazine HCl 25 MG/ML VIAL SLOW IVP PRN (20:02)
[2020-01-14] MEDS ORDERED: Ondansetron HCl/PF 4 MG/2 ML Vial IVP PRN (20:02)
[2020-01-14] MEDS ORDERED: Promethazine HCl 25 MG/ML VIAL IM PRN (20:02)
--- NOTE | 2020-01-14 20:50 | RAD ---
LEFT HIP RADIOGRAPH TWO VIEWS: 01/14/20 PROVIDED CLINICAL HISTORY: Status post left hip arthroplasty. FINDINGS: Comparison 01/13/20. Interval postoperative changes of left hip arthroplasty. Associated soft tissue gas and cutaneous sta ples. IMPRESSION: As above. POS: IVAN
--- NOTE | 2020-01-14 20:59 | OP ---
DATE OF PROCEDURE: 01/14/2020 PREOPERATIVE DIAGNOSIS: Displaced femoral neck fracture of the left hip. POSTOPERATIVE DIAGNOSIS: Displaced femoral neck fracture of the left hip. PROCEDURE PERFORMED: Proximal femoral replacement utilizing bipolar prosthesis of the left hip. ANESTHESIA: General. DESCRIPTION OF PROCEDURE: The patient was given preoperative IV antibiotics, taken to the operating room, placed in supine position. Satisfactory general anesthesia was performed. The patient was placed in the right lateral decubitus position. All bony prominences were well padded. The left hip and lower extremity were sterilely prepped and draped in usual fashion. A longitudinal incision was made centered over the greater trochanter, approximately 9 inches in length. Incision was continued down to the iliotibial band, which was divided longitudinally and the anterior aspect of the hip joint was entered. Anterior portion of the abductor muscles was sharply incised. The anterior capsule was excised and the fracture of the femoral neck was encountered. Oscillating saw was used to remove a portion of the fracture. The head was removed and measured as a size 50. There were fragments of bone in the acetabulum, which were removed. The soft tissue in the acetabulum was removed. Articular cartilage looked very good. The hip joint was copiously irrigated with antibiotic solution using the high-speed workplace relations adviser. The proximal femur was then prepared initially using a box osteotome and then a hand Charnley reamer. A lateralizer was used and then it was sequentially rasped up to a size 8. Calcar was cut and the trials were placed, best fit with judaism of leg length and good range of motion with using a standard offset neck with a 28 mm head and a 50 mm bipolar. The trial was removed. The hip joint again was copiously irrigated with the Pulsavac and then the DonJoy prosthesis was inserted, again it was a porous-coated standard offset, size 8 stem and neck. Had excellent fit in the proximal femur. The neutral 28 mm head was impacted over the Adams taper and the 50 mm bipolar was inserted. It was then reduced again, was found to be very stable, good range of motion, and the wound was then copiously irrigated. The anterior portion of the abductor muscles was repaired using #2 Vicryl. The iliotibial band was closed with #2 Vicryl. Fat and subcutaneous tissue were closed with 0 Vicryl, and skin was closed with skin cece. Sterile dressing was applied. The patient was then awakened, extubated, and transferred to recovery room in stable condition. Estimated blood loss was 200 mL. The patient tolerated the procedure well, was taken to recovery room in good condition. Job ID: [id number]
[2020-01-14] MEDS ORDERED: Senokot S 8.6-50 MG TAB PO SCH (21:00)
[2020-01-14] MEDS ORDERED: Simvastatin 40 MG TAB PO SCH (21:00)
[2020-01-14] MEDS: Montelukast Sodium 10 mg Tablet PO SCH (21:23)
[2020-01-14] MEDS: Senokot S 8.6-50 MG TAB PO SCH (21:23)
[2020-01-14] MEDS: Atorvastatin Calcium 20 MG TAB PO SCH (21:23)
[2020-01-14] MEDS: diphenhydrAMINE 50 MG/ML VIAL IVP PRN (21:23)
[2020-01-14] MEDS: Ketorolac Tromethamine 30 MG/ML VIAL IVP SCH (23:04)
[2020-01-14] MEDS: Cyclobenzaprine 10 MG TAB PO PRN (23:04)
[2020-01-14] MEDS ORDERED: Ketorolac Tromethamine 30 MG/ML VIAL IM SCH (23:59)
[2020-01-15] MEDS: Ketorolac Tromethamine 30 MG/ML VIAL IVP SCH ×3 (05:27→17:27)
[2020-01-15] MEDS: Acetaminophen 325 MG TAB PO SCH ×3 (05:27→17:26)
[2020-01-15 05:43] LABS: Anion Gap 11 mmol/L (10-20); BUN (Urea Nitrogen) 7 mg/dL (9.8-20.1); Calc. Creatinine Clearance 153 mL/min (70-130); Calcium 7.6 mg/dL (7.8-10.44); Carbon Dioxide 22 mmol/L (23-31); Chloride 107 mmol/L (98-107); Estimated GFR-MDRD Greater than 90; Glucose 112 mg/dL (83-110); Magnesium 1.8 mg/dL (1.6-2.6); Phosphorus 2.6 mg/dL (2.3-4.7); Sodium 136 mmol/L (136-145)
[2020-01-15 07:10] LABS: Band 17 % (5-11); Eosinophils 3 % (0-10); Hemoglobin 11.1 g/dL (12.0-16.0); Lymphocytes 12 % (21-51); MDiff Complete? YES; Mean Corpuscular HGB CONC 33.5 g/dL (32.0-36.0); Mean Corpuscular Hemoglobin 35.5 pg (27.0-31.0); Mean Platelet Volume 8.3 fL (7.4-10.4); Monocytes 20 % (0-10); Neutrophil 48 % (42-75); Platelet Count 141 thou/uL (130-400); RBC Distribution Width 12.9 % (11.5-14.5); Red Blood Cell (RBC) Count 3.13 mill/uL (4.20-5.40); White Blood Cell (WBC) Count 6.5 thou/uL (4.8-10.8)
[2020-01-15] MEDS ORDERED: Potassium Phosphate 15 MMOL in Sodium Chloride 0.9% 250 ML 250 ML IVPB SCH (07:30)
[2020-01-15] MEDS ORDERED: Magnesium 2 GM/50 ML 2 GM in Premix Bag 1 BAG IVPB SCH (07:30)
[2020-01-15] MEDS ORDERED: Doxycycline 100 MG CAP PO SCH (08:00)
[2020-01-15] MEDS ORDERED: Aspirin 81 mg Enteric Coated Tablet PO SCH (09:00)
[2020-01-15] MEDS ORDERED: Non-Formulary Item 1 EACH (Cetirizine Hcl [Zyrtec] 10 MG) PO SCH (09:00)
[2020-01-15] MEDS ORDERED: Fluticasone Propionate Nasal Spray 16 gm Bottle NASAL SCH (09:00)
[2020-01-15] MEDS: Polyethylene Glycol 3350 17 GM Packet PO SCH (09:08)
[2020-01-15] MEDS: Ferrous Gluconate 324 MG TAB PO SCH ×2 (09:08→17:27)
[2020-01-15] MEDS: Heparin 5,000 UNITS/ML VIAL SC SCH ×3 (09:09→20:45)
[2020-01-15] MEDS: Loratadine 10 MG TAB PO SCH (09:09)
[2020-01-15] MEDS: Famotidine 20 MG TAB PO SCH ×2 (09:09→20:45)
[2020-01-15] MEDS: Multivitamin W/ Minerals 1 TAB PO SCH (09:09)
[2020-01-15] MEDS: Senokot S 8.6-50 MG TAB PO SCH ×2 (09:09→20:45)
[2020-01-15] MEDS ORDERED: Hydrocortisone Sod Succ/PF 100 mg/2 ml Vial IVP SCH (09:15)
[2020-01-15] MEDS: Morphine 2 MG/ML VIAL SLOW IVP PRN (09:21)
[2020-01-15] MEDS: Fluticasone Propionate Nasal Spray 16 gm Bottle NASAL SCH (09:51)
--- NOTE | 2020-01-15 12:12 | PRG ---
DATE OF SERVICE: 01/15/2020 SUBJECTIVE: Ms. Mayfield is 1 day status post bipolar prosthesis of the left hip. The patient's pain is well controlled. OBJECTIVE: VITAL SIGNS: Temperature is 98.8, pulse 90, respiratory rate 14, blood pressure 90/55, and O2 saturation 94% on 4 L per nasal cannula. LABORATORY DATA: Shows white count 6.5, hemoglobin 11.1, and hematocrit 33.2. ASSESSMENT: Left lower extremity is neurovascularly intact. PLAN: The patient will be started working with Physical and Occupational Therapy, getting out of bed. The patient may weightbear as tolerated on the left lower extremity. Post-hospital care, the patient is planning on going to rehab. Job ID: [id number]
--- NOTE | 2020-01-15 13:21 | PRG ---
DATE OF SERVICE: 01/15/2020 SUBJECTIVE: The patient was seen this morning during rounds. She was sitting up in bed with no signs of acute distress. She ate the majority of her breakfast, but had a difficult time reaching it. Nursing reported there was miscommunication between the patient and the tech in the room. The issue was addressed with nursing staff as well. Pain is well controlled. Wound care placed right-sided VAC per Dr. Jones. OBJECTIVE: VITAL SIGNS: Temperature 98.8, pulse 90, respirations 14, oxygen saturation 94% on 4 L nasal cannula, and blood pressure 90/55. GENERAL: Well-appearing elderly female, sitting up in bed with no signs of acute distress. PULMONARY: Equal chest rise and fall. No signs of acute respiratory distress. CARDIAC: Regular rate and rhythm. GI: Abdomen is soft, nontender, distended. EXTREMITIES: 2+ pulses in all extremities. Gross motor and sensation intact. No significant swelling noted. NEURO: GCS 15. SKIN: Right upper chest wall wound with packing that is in place. No signs of oozing or bleeding. LABORATORY FINDINGS: White count 6.5, hemoglobin 11.1, hematocrit 33.2, platelets 141. Sodium 136, potassium 4.0, chloride 107, bicarb 22, BUN 7, creatinine 0.62 , glucose 112, phosphorus 2.6, magnesium 1.8. Cortisol 1.41. DIAGNOSTIC FINDINGS: There are no new diagnostic findings to report. ASSESSMENT: 1. Status post mechanical fall from standing. 2. Left femoral neck fracture, status post repair. 3. Acute adrenal insufficiency. 4. Right-sided anterior chest wall wound, status post excision of melanoma. 5. History of rheumatoid arthritis, spinal stenosis, and depression. PLAN: Continue current diet and pain regimen. Start physical and occupational therapy, hydrocortisone for acute adrenal insufficiency. Monitor blood pressure. Wound Care has instructions from Dr. Jones to place a wound VAC to the patient's right anterior chest wall. Start subcu heparin today as the patient is allergic to aspirin. Replace magnesium and phosphorus today. Encourage incentive spirometry. This patient will be discussed with Dr. Alaniz after this dictation. Job ID: [id number] [facility]
--- NOTE | 2020-01-15 14:40 | PRG ---
DATE OF SERVICE: 01/14/2020 SUBJECTIVE: The patient is a melanoma patient, who developed a postoperative infection over this past week. Her surgery was approximately a week ago on Thursday. She was seen on Thursday in clinic and had a little bit of what appeared to be inflammation around where local was injected. She was seen again later that week and her breast had developed a cellulitis. Her sutures were opened and she was started on Levaquin and clindamycin. The patient felt like she was not allergic to clindamycin Levaquin were started. Cultures were taken. As of this morning, the cultures were growing out some sort of gram-negative. The patient is being seen in the Day Stay area, because apparently she fell and broke her hip. Dr. You is going to repair it. Her breast is certainly improved, though still has significant erythema versus cellulitis. I discussed her history and my assessment of her current state of affairs is Dr. You. Job ID: [id number]
[2020-01-15] MEDS: Hydrocortisone Sod Succ/PF 100 mg/2 ml Vial IVP SCH ×2 (15:40→21:06)
[2020-01-15 17:08] LABS: Bacteria/HPF None Seen HPF (None Seen); Bilirubin Negative (Negative); Blood, Urine Negative (Negative); Clarity Clear (Clear); Glucose, Urine (Dipstick) Normal (Negative); Ketone, Urine Negative (Negative); Leukocyte Negative Leu/uL (Negative); Nitrite Negative (Negative); Protein, Urine (Dipstick) 10 mg/dL (Neg-Trace); Specific Gravity, Urine 1.016 (1.002-1.036); Squamous Epithelial None Seen HPF (0-3); Urobilinogen Normal mg/dL (Less than 2); WBC/HPF 0-3 HPF (0-3)
[2020-01-15] MEDS: Atorvastatin Calcium 20 MG TAB PO SCH (20:45)
[2020-01-15] MEDS: Montelukast Sodium 10 mg Tablet PO SCH (20:45)
[2020-01-15] MEDS: diphenhydrAMINE 50 MG/ML VIAL IVP PRN (21:00)
--- NOTE | 2020-01-15 23:42 | PRG ---
DATE OF SERVICE: 01/15/2020 SUBJECTIVE: The patient was seen during evening rounds, awake and alert, in no distress, talking to her daughter on the phone. The patient reports her pain is well controlled at this time. The patient is tolerating a regular diet, although she does have a decreased appetite. The patient is postop day #1 status post proximal femoral replacement utilizing bipolar prosthesis in the left hip. The patient also had a wound VAC placed to the right anterior chest wall infected wound from an excisional melanoma to the right chest by Dr. Jones. The patient's wound cultures resulted and are sensitive to levofloxacin. The patient voices no complaints or concerns at this time. The patient has a Sunshine catheter in place with urinary retention. PLAN: Continue supportive care and pain regimen. Continue regular diet as tolerated. Wound Care to manage wound VAC to the chest. Increase physical and occupational therapy. Job ID: [id number]
[2020-01-16] MEDS: Acetaminophen 325 MG TAB PO SCH ×4 (00:11→17:30)
[2020-01-16] MEDS: Hydrocortisone Sod Succ/PF 100 mg/2 ml Vial IVP SCH ×3 (05:03→15:02)
[2020-01-16 06:03] LABS: Mean Corpuscular HGB CONC 33.8 g/dL (32.0-36.0); Mean Platelet Volume 8.3 fL (7.4-10.4); Platelet Count 139 thou/uL (130-400); RBC Distribution Width 12.6 % (11.5-14.5); Red Blood Cell (RBC) Count 2.85 mill/uL (4.20-5.40); White Blood Cell (WBC) Count 5.7 thou/uL (4.8-10.8)
[2020-01-16 06:12] LABS: Anion Gap 10 mmol/L (10-20); BUN (Urea Nitrogen) 8 mg/dL (9.8-20.1); Calc. Creatinine Clearance 161 mL/min (70-130); Calcium 7.9 mg/dL (7.8-10.44); Carbon Dioxide 24 mmol/L (23-31); Chloride 106 mmol/L (98-107); Estimated GFR-MDRD Greater than 90; Glucose 117 mg/dL (83-110); Magnesium 2.3 mg/dL (1.6-2.6); Phosphorus 2.8 mg/dL (2.3-4.7); Potassium 3.9 mmol/L (3.5-5.1); Sodium 136 mmol/L (136-145)
[2020-01-16 06:37] LABS: Band 6 % (5-11); Eosinophils 1 % (0-10); Lymphocytes 17 % (21-51); MDiff Complete? YES; Monocytes 14 % (0-10); Neutrophil 62 % (42-75)
[2020-01-16] MEDS ORDERED: Potassium Phosphate 15 MMOL in Sodium Chloride 0.9% 250 ML 250 ML IVPB SCH (08:30)
[2020-01-16] MEDS: Senokot S 8.6-50 MG TAB PO SCH (08:56)
[2020-01-16] MEDS: Multivitamin W/ Minerals 1 TAB PO SCH (08:56)
[2020-01-16] MEDS: Famotidine 20 MG TAB PO SCH (08:56)
[2020-01-16] MEDS: Loratadine 10 MG TAB PO SCH (08:56)
[2020-01-16] MEDS: Ferrous Gluconate 324 MG TAB PO SCH ×2 (08:56→17:30)
[2020-01-16] MEDS: Heparin 5,000 UNITS/ML VIAL SC SCH ×2 (08:57→15:02)
[2020-01-16] MEDS: Fluticasone Propionate Nasal Spray 16 gm Bottle NASAL SCH (08:58)
[2020-01-16] MEDS: Polyethylene Glycol 3350 17 GM Packet PO SCH (08:58)
[2020-01-16 16:10] VITALS: TEMP 98.7
--- NOTE | 2020-01-16 18:23 | DIS ---
DATE OF ADMISSION: 01/13/2020 DATE OF DISCHARGE: 01/16/2020 ADMISSION DIAGNOSES: Mechanical fall from standing, left femoral neck fracture, and right anterior chest wall surgical wound. DISCHARGE DIAGNOSES: Mechanical fall from standing, left femoral neck fracture, right anterior chest wall surgical wound, and acute adrenal insufficiency. CONSULTING PHYSICIAN: Dr. You of Orthopedic Surgery. PROCEDURES: Patient went to the OR on January 14, 2020, and had a proximal femoral replacement utilizing bipolar prosthesis of the left hip. HOSPITAL COURSE: The patient is a 79-year-old female, who presented to the emergency department via EMS after a mechanical fall at home. Patient was found to have a left femoral neck fracture, for which she went to the OR the next day. During her evaluation, the patient had a large right-sided anterior chest wound. She reports about a week before admission, a large melanoma was excised by Dr. Jones. Postoperatively, she developed an infection and Dr. Jones opened the wound. Upon evaluation, there was no purulence or active signs of infection. Patient was also having an allergic reaction to her anterior chest due to antibiotics. Dr. Jones was consulted. The patient ultimately got a wound VAC placed. Cultures and sensitivities resulted and she was continued on levofloxacin. Postoperatively, the patient developed acute adrenal insufficiency that was treated with hydrocortisone. She also had a Sunshine placed for urinary retention, for which she went to the rehab . At the time of discharge, patient's pain was well controlled, she was tolerating a regular diet, working with Physical and Occupational Therapy. DISCHARGE DISPOSITION: Acute rehab [facility]. DISCHARGE CONDITION: Satisfactory. PHYSICAL EXAMINATION: VITAL SIGNS: Temperature 98.7, pulse 98, respirations 14, oxygen saturation 96% on room air, and blood pressure 120/62. GENERAL: Well-appearing elderly female, sitting up in bed with no signs of acute distress. PULMONARY: Equal chest rise and fall. No signs of acute respiratory distress. CARDIAC: Regular rate and rhythm. NEUROLOGIC: GCS 15. DISCHARGE INSTRUCTIONS: The patient was discharged to acute rehab facility. Activity as tolerated. Weightbearing as tolerated all extremities. Regular diet with Denys and Ensure b.i.d. She will have physical therapy, occupational therapy, and wound care. She will have a Sunshine care, incentive spirometry, walker, and wound care to her right-sided anterior chest wall. DISCHARGE MEDICATIONS: Include; 1. Tylenol. 2. Zyrtec. 3. Famotidine. 4. Fergon. 5. Flonase nasal spray. 6. Subcu heparin. 7. Lactulose. 8. Levofloxacin. 9. Singulair. 10. Multivitamins with minerals. 11. MiraLAX. 12. Senokot-S. 13. Sertraline. 14. Simvastatin. 15. Tramadol. 16. Biotin. 17. Cimzia. 18. Vitamin D3. 19. Pepcid. 20. Hydroxychloroquine. 21. Hydrochlorothiazide. FOLLOWUP APPOINTMENTS: The patient will follow up with Dr. Jones and Dr. You. No need for followup with Dr. Alaniz in [facility]. This is a summary of the patient's hospitalization. For full details, please see her medical record in its entirety. The patient was seen and evaluated by Dr. Alaniz and myself on the day of discharge. Job ID: [id number]
[2020-01-16 21:08] VITALS: BP 125/50
--- NOTE | 2020-01-16 21:15 | PRG ---
DATE OF SERVICE: 01/16/2020 SUBJECTIVE: The patient underwent bipolar prosthesis of the left hip on 01/14/2020, 2 days ago. The patient states she has had good pain control. She get out of bed with physical therapy and take several steps. She has no neurologic complaints in the left lower extremity. The erythema and swelling that she had in the anterior right chest wall where she had melanoma removed. She is doing much better and feels much better. OBJECTIVE: VITAL SIGNS: The patient has been afebrile. Vital signs have been stable. MUSCULOSKELETAL: The incision on the left hip is healing very well. There is mild swelling. No erythema. No drainage. The erythema that the patient had around the melanoma of the anterior right chest wall has significantly decreased since prior to surgery. LABORATORY DATA: This morning, show a white count 5.7, hemoglobin 10, hematocrit 29.5. PLAN: The patient will continue with Physical and Occupational Therapy. She will be going to rehabilitation at [facility] where she went after her total knee replacements. She will follow up in my office after she was discharged from rehab. Job ID: [id number]
== END 2020-01-16 20:35 | DRG 470 ==
LOC: ERS 18:34 → SURG A 20:06
PROVIDERS: ADMIT Surgery; ATTEND Surgery
PROC: 0SRS0JZ Replacement of Left Hip Joint, Femoral Surface with Synthetic Substitute, Open Approach (ICD-10-PCS; principal; 2020-01-14)
PROC: 2W14X6Z Compression of Chest Wall using Pressure Dressing (ICD-10-PCS; 2020-01-14)
DX: S72.002A Fracture of unspecified part of neck of left femur, initial encounter for closed fracture (principal); E27.40 Unspecified adrenocortical insufficiency; F32.9 Major depressive disorder, single episode, unspecified; M06.9 Rheumatoid arthritis, unspecified; W18.30XA Fall on same level, unspecified, initial encounter; M48.00 Spinal stenosis, site unspecified; Y83.9 Surgical procedure, unspecified as the cause of abnormal reaction of the patient, or of later complication, without mention of misadventure at the time of the procedure; Z90.49 Acquired absence of other specified parts of digestive tract; Z90.711 Acquired absence of uterus with remaining cervical stump; Z98.890 Other specified postprocedural states; Z88.6 Allergy status to analgesic agent; Z88.2 Allergy status to sulfonamides; Z88.1 Allergy status to other antibiotic agents; Z88.8 Allergy status to other drugs, medicaments and biological substances; Z85.820 Personal history of malignant melanoma of skin; R33.9 Retention of urine, unspecified; T81.89XA Other complications of procedures, not elsewhere classified, initial encounter
CPT/HCPCS: 36415; 71045; 72170; 72192; 80048; 80053; 81001; 82533; 83735; 84100; 85007; 85025; 85027; 85610; 85730; 86850; 86900; 86901; 87070; 87077; 87086; 87116; 87186; 87205; 87206; 87635; 93005; 96365; 96366; 96375; C1776; G0390; J0670; J1200; J1580; J1644; J1720; J1885; J2270; J2405; J2550; J2704; J3010; J3370; J3475; J7050; J7620; U0003

== ENCOUNTER 2020-03-01 09:26 | Outpatient (CLI) | payer MEDICARE ==
--- NOTE | 2020-03-01 12:52 | MRI ---
MRI brain with and without contrast: DATE: 03/01/2020 HISTORY: 79-year-old female with "C 43.59 malignant melanoma of other part of trunk". Presents for staging. Co ncern for brain metastasis. TECHNIQUE: Multiplanar, multisequence MRI of the brain obtained pre and post IV injection of gadolinium based co ntrast agent. FINDINGS: There is no obstructive hydrocephalus. There is no midline shift or any other evidence of mass effect . There is no extra-axial fluid collection. There are mild chronic ischemic white matter changes due to microvascular atherosclerosis. There is otherwise no major intra-axial signal abnormality, abn ormal enhancement, mass, recent hemorrhage, or restricted diffusion. IMPRESSION: 1) mild chronic ischemic white matter changes. 2) otherwise negative. 3) no evidence of intracranial metastatic disease.
--- NOTE | 2020-03-01 14:16 | PET ---
PET CT: 03/01/20 HISTORY: 73-year-old female with malignant melanoma of other part of trunk. Exam is requested for initial stag ing. TECHNIQUE: PET scan with CT attenuation correction was performed from the vertex through the feet following the intravenous administration of 12.2 millicuries of 15-fluorodeoxyglucose in the left hand. FINDINGS: No viridiana hypermetabolism is seen in the neck, chest, axillae, abdomen, pelvis, inguinal or popliteal regions. No hypermetabolic pulmonary nodules, liver, adrenal, skeletal lesions are seen. There is physiologic activity in the and GI tracts and brain. There is also physiologic activity i n the skeletal muscles. The CT scan used for attenuation correction demonstrates no evidence of pleural effusions or ascites. There is a right renal cyst and postop changes of left hip arthroplasty and posterior spinal fusion in the lower lumbar spine. IMPRESSION: No evidence of metastatic disease. POS: [facility]
[2020-03-01] MEDS ORDERED: Magnevist 469MG/ML 20 ML VIAL ONE (14:49)
[2020-03-02 11:06] LABS: Estimated GFR-MDRD - POC Greater than 90
== END 2020-03-01 09:27 | disposition home or self-care (01) ==
LOC: PET 09:26
PROVIDERS: ATTEND Internal Medicine Hematology & Oncology
DX: C43.59 Malignant melanoma of other part of trunk (principal); I67.82 Cerebral ischemia
CPT/HCPCS: 70553; 78816; 82565; A9552; A9579

== ENCOUNTER 2020-03-08 14:42 | Outpatient (CLI) | payer MEDICARE | END 2020-03-08 14:43 | disposition home or self-care (01) | LOC: ULT 14:42 | PROVIDERS: ATTEND Internal Medicine Hematology & Oncology | DX: Z51.11 Encounter for antineoplastic chemotherapy (principal); C43.59 Malignant melanoma of other part of trunk; I08.2 Rheumatic disorders of both aortic and tricuspid valves; Z79.899 Other long term (current) drug therapy | CPT/HCPCS: 93306 ==

== ENCOUNTER 2020-03-21 08:22 | Inpatient (IN) | payer MEDICARE ==
[2020-03-21 09:03] LABS: #Lymphocytes 0.5 thou/uL (1.20-3.40); #Monocytes 0.1 thou/uL (0.11-0.59); #Neutrophils 1.9 thou/uL (1.40-6.50); %Basophils 0.2 % (0.0-1.0); %Eosinophils 0.2 % (0.0-10.0); %Lymphocytes 18.9 % (21.0-51.0); %Monocytes 4.5 % (0.0-10.0); %Neutrophils 76.2 % (42.0-75.0); Hemoglobin 14.7 g/dL (12.0-16.0); Mean Corpuscular HGB CONC 34.1 g/dL (32.0-36.0); Mean Platelet Volume 7.5 fL (7.4-10.4); Platelet Count 149 thou/uL (130-400); RBC Distribution Width 12.9 % (11.5-14.5); White Blood Cell (WBC) Count 2.6 thou/uL (4.8-10.8)
[2020-03-21] MEDS ORDERED: Ondansetron PF 4 MG/2 ML Vial ONE (09:24)
--- NOTE | 2020-03-21 09:34 | RAD ---
RADIOGRAPH CHEST 1 VIEW: DATE: 03/21/2020 HISTORY: 79-year-old female with melanoma. Nausea and vomiting with weakness. FINDINGS: There are no air space densities, pulmonary edema, pneumothorax, or cardiomegaly. The lateral costop hrenic angles are sharp. IMPRESSION: No acute cardiopulmonary findings. mercedes [] POS: [facility]
[2020-03-21] MEDS ORDERED: Ketorolac Tromethamine 30 MG/ML VIAL ONE (09:42)
[2020-03-21 10:18] LABS: Bacteria/HPF None Seen HPF (None Seen); Bilirubin 1+ (Negative); Blood, Urine Negative (Negative); Clarity Turbid (Clear); Glucose, Urine (Dipstick) 30 mg/dL (Negative); Ketone, Urine 20 mg/dL (Negative); Leukocyte Negative Leu/uL (Negative); Mucous/LPF 2+ LPF (<2+); Nitrite Negative (Negative); Protein, Urine (Dipstick) 100 mg/dL (Neg-Trace); RBC/HPF 0-3 HPF (0-3); Specific Gravity, Urine 1.035 (1.002-1.036); Squamous Epithelial 0-3 HPF (0-3); Urobilinogen 3 mg/dL (Less than 2)
[2020-03-21 10:32] LABS: ALT (SGPT) 25 U/L (8-55); AST (SGOT) 44 U/L (5-34); Albumin 3.7 g/dL (3.4-4.8); Alkaline Phosphatase 97 U/L (40-110); Anion Gap 18 mmol/L (10-20); BUN (Urea Nitrogen) 15 mg/dL (9.8-20.1); Bilirubin, Total 0.5 mg/dL (0.2-1.2); Calc. Creatinine Clearance 0 mL/min (70-130); Calcium 8.9 mg/dL (7.8-10.44); Carbon Dioxide 14 mmol/L (23-31); Chloride 102 mmol/L (98-107); Estimated GFR-MDRD 71; Globulin 3.1 g/dL (2.4-3.5); Glucose 116 mg/dL (83-110); Potassium 3.4 mmol/L (3.5-5.1); Protein, Total 6.8 g/dL (6.0-8.3); Sodium 131 mmol/L (136-145)
[2020-03-21] MEDS ORDERED: Cefepime 2 GM VIAL ONE (10:40)
[2020-03-21] MEDS ORDERED: Cefepime 2 GM in Sodium Chloride 0.9% 100 ML IVPB SCH (10:45)
[2020-03-21] MEDS ORDERED: Sodium Chloride 0.9% 1,000 ML IV SCH ×2 (10:45→11:45)
[2020-03-21 11:09] LABS: SARS-CoV-2 NAA Rapid Test Not Detected (NotDetected)
[2020-03-21] MEDS ORDERED: Acetaminophen 325 MG TAB PO PRN (11:36)
[2020-03-21] MEDS ORDERED: Senokot S 8.6-50 MG TAB PO PRN ×2 (11:36→14:38)
[2020-03-21] MEDS ORDERED: Acetaminophen 500 MG TAB ONE (12:04)
[2020-03-21 13:26] VITALS: BMI 41.3
[2020-03-21] MEDS ORDERED: Polyethylene Glycol 3350 17 GM Packet PO PRN (14:38)
[2020-03-21] MEDS: Ibuprofen 600 MG TAB PO PRN ×2 (17:00→23:20)
[2020-03-21] MEDS: Acetaminophen 500 MG TAB PO PRN (18:17)
--- NOTE | 2020-03-21 19:02 | HP ---
CHIEF COMPLAINT: Generalized weakness and fever. HISTORY OF PRESENT ILLNESS: The patient is a 79-year-old female with history of melanoma, who is currently on treatment with Tafinlar and Mekinist, which started about a week ago, who comes into the hospital with generalized weakness, fever since last week . The patient's daughter who is at the bedside reported that the patient did not feel well yesterday and she went over to her mom's house, her temperature was 102 and also gave her some Tylenol. This morning around 4 again, she spiked a fever. She also had some fevers and chills, so she came into the hospital for further evaluation. She denies any dysuria, any abdominal pain, any diarrhea. She states she has not been eating and drinking very much. She does state that she has been a little bit nauseated. No respiratory symptoms of shortness of breath or chest tightness. PAST MEDICAL HISTORY: She has a history of diagnosis of melanoma, but she is currently on treatment, rheumatoid arthritis, which she is on Plaquenil and methotrexate, spinal stenosis, and depression. She does have a pain stimulator. ALLERGIES: SHE IS ALLERGIC TO ASPIRIN, SULFA, CEPHALOSPORINS, CLINDAMYCIN, CODEINE, HYDROCODONE, AND IODINE. MEDICATIONS: She is on; 1. Plaquenil. 2. Methotrexate. 3. Singulair. 4. Zoloft. 5. Simvastatin. 6. Tafinlar and Mekinist. PAST SURGICAL HISTORY: She has had excisional biopsy of the lymph node excision, tonsillectomy, cholecystectomy, partial hysterectomy, knee surgery x3, bilateral shoulder surgeries, bilateral back surgeries including a spinal stimulator and she also had left femoral neck fracture which was in January of 2020. REVIEW OF SYSTEMS: All negative except for the ones mentioned above in the HPI. SOCIAL HISTORY: She was a former smoker, quit about 3 years ago. Denies any alcohol use or drug use. She is a full code. She lives at home. PHYSICAL EXAMINATION: VITAL SIGNS: As of the following; temperature of 102.1, pulse 89, respirations 20, O2 sat is 95% on room air, and blood pressure 160/70. GENERAL: She is awake, alert, and oriented x3. Does not appear in distress. CV: S1, S2 present. No murmurs, rubs, or gallops. ABDOMEN: Soft and nontender. Bowel sounds are present x2. EXTREMITIES: No edema. Pedal pulses present x2. LUNGS: Clear to auscultation. No rhonchi or wheezes noted. MUSCULOSKELETAL: I did palpate around her spinal stimulator which appears to be no redness or erythema on her right buttock area. Also her incision on her right chest wall area appears intact. No erythema noted. Appears to be healed appropriately. NEUROVASCULAR: No focal deficits noted. LABORATORY DATA: Her WBCs of 2.6, hemoglobin of 14.7, hematocrit of 43.2, and platelets of 149. Chemistry; sodium of 131, potassium of 3.4, BUN of 15, creatinine 0.78. Her CRP 7.39. Her troponin x1 is negative. She did have a chest x-ray, which did not show any acute abnormalities. Also, she had a urine, which showed some wbc's with no squamous epithelial cells. ASSESSMENT AND PLAN: The patient is a very pleasant 79-year-old female who presents to the hospital with fever. 1. Sepsis, unclear etiology. Could be drug related. She was started on chemotherapy medications, which was oral. However, we will start her on some broad-spectrum antibiotics which include cefepime for now and blood cultures are done. We will continue to monitor. 2. Mild dehydration. We will start her on some gentle hydration, and we will continue to monitor. 3. Hypertension. We will continue her home medications. 4. Rheumatoid arthritis. I will hold her methotrexate. We can give her the Plaquenil. I think that should be okay. 5. Deep venous thrombosis prophylaxis. We will put the patient on subcu heparin. Job ID: [id number]
--- NOTE | 2020-03-21 19:33 | CON ---
DATE OF CONSULTATION: REASON FOR CONSULT: Malignant melanoma. HISTORY OF PRESENT ILLNESS: Ms. 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 She is BRAF positive. She had a right chest wall excision and no metastatic disease on her MRI of her brain or PET scan. She started chemotherapy with oral Tafinlar and Mekinist on Thursday. She developed a fever of 102.4 at home with a cough, nausea, and chills. This started yesterday. She presented to our emergency room this morning. She appeared dehydrated with an elevated heart rate. She was started on IV fluids and empiric antibiotics. She was pancultured and admitted for further workup. Her COVID PCR is currently pending. She is seen at bedside with her daughter present. She is currently having a fever 102 with flushed face and chills. She denies any chest pain, shortness of breath, or productive cough. No abdominal discomfort or diarrhea. PAST MEDICAL HISTORY: 1. Stage IIIC malignant melanoma of the right chest wall. 2. RA. 3. Depression. 4. Joint replacement. PAST SURGICAL HISTORY: 1. Melanoma resection. 2. Partial hip replacement. 3. Lumbar nerve stimulator. 4. Knee surgery. ALLERGIES: TO CODEINE, KEFLEX, SULFA. HOME MEDICATIONS: 1. Plaquenil. 2. Zoloft. 3. Folic acid. 4. Simvastatin. 5. Zofran. 6. Tafinlar and Mekinist. FAMILY HISTORY: Mother had non-Hodgkin lymphoma. Father had colon cancer. Sibling had malignant melanoma. SOCIAL HISTORY: . Has 2 children. Lives alone. Former smoker. No alcohol or illicit drug use. REVIEW OF SYSTEMS: 12-point review of systems is negative except for noted in HPI. PHYSICAL EXAMINATION: VITAL SIGNS: Temperature is 102.1, pulse is 89, respiratory rate 20, blood pressure is 162/70, she is 95% on room air. GENERAL: This is a well-developed, well-nourished female, in no acute distress. HEENT: Normocephalic, atraumatic. Pupils are equal and reactive to light. NECK: Supple. CV: Regular rate and rhythm. LUNGS: Clear. ABDOMEN: Soft and nontender. Bowel sounds are positive. EXTREMITIES: No clubbing or cyanosis. SKIN: She has facial flushing. NEUROLOGIC: Nonfocal. PERTINENT LABORATORY DATA AND X-RAYS: Current WBCs are 2.6, hemoglobin 14.2, hematocrit 43.2, platelet count is 149,000, 76% neutrophils, 18% lymphocytes. Sodium is 131, potassium 3.4, chloride 102, CO2 is 14, BUN is 15, creatinine 0.78, calcium 8.9, bilirubin 0.5, AST is 44, ALT is 25, alkaline phosphatase is 97. Troponin is negative. Serum total protein 6.8, albumin 3.7, globulin 3.1. Urine is negative for bacteria. COVID PCR is negative. Chest x-ray showed no acute cardiopulmonary findings. ASSESSMENT: 1. Malignant melanoma, on oral chemotherapy with Tafinlar and Mekinist. 2. Fever, likely secondary to oral chemotherapy. DISCUSSION: Over 50% of the patients on Tafinlar and Mekinist have pyrexia, which can be as high as 104. She had chills and drank very little over the last 24 hours and appears to be dehydrated. Will increase her Tylenol. She has received IV fluids, which currently continue. She complains of constipation as well and we will add stool softener to her regimen. She has been pancultured, results pending. I do think this is a side effect of her new medicine. We discussed strategies to manage her fever at home should it recur. If it becomes an issue, she will need a dose reduction. Discussed case with Dr. Hernandez and will follow along with her hospital course. Thank you for the consult. Job ID: [id number] MTDD
[2020-03-21] MEDS: Famotidine/PF 20 mg/2ml Vial SLOW IVP SCH (21:47)
[2020-03-21] MEDS: Atorvastatin Calcium 20 MG TAB PO SCH (21:47)
[2020-03-21] MEDS: Folic Acid 1 MG TAB PO SCH (21:47)
[2020-03-21] MEDS: Montelukast Sodium 10 mg Tablet PO SCH (21:47)
[2020-03-21] MEDS: Docusate 100 MG CAP PO SCH (21:47)
[2020-03-22 04:25] LABS: Anion Gap 15 mmol/L (10-20); BUN (Urea Nitrogen) 21 mg/dL (9.8-20.1); Calc. Creatinine Clearance 106 mL/min (70-130); Calcium 8.1 mg/dL (7.8-10.44); Carbon Dioxide 12 mmol/L (23-31); Chloride 107 mmol/L (98-107); Estimated GFR-MDRD 65; Glucose 115 mg/dL (83-110); Potassium 3.2 mmol/L (3.5-5.1); Sodium 131 mmol/L (136-145)
[2020-03-22 07:14] LABS: Hemoglobin 13.7 g/dL (12.0-16.0); Mean Corpuscular HGB CONC 34.9 g/dL (32.0-36.0); Mean Corpuscular Hemoglobin 34.3 pg (27.0-31.0); Mean Corpuscular Volume 98.4 fL (78.0-98.0); Mean Platelet Volume 9.7 fL (7.4-10.4); Platelet Count 65 thou/uL (130-400); White Blood Cell (WBC) Count 5.8 thou/uL (4.8-10.8)
[2020-03-22 08:18] LABS: #Lymphocytes 0.3 thou/uL (1.20-3.40); #Monocytes 0.1 thou/uL (0.11-0.59); #Neutrophils 5.4 thou/uL (1.40-6.50); %Basophils 0.4 % (0.0-1.0); %Lymphocytes 4.5 % (21.0-51.0); %Monocytes 2.2 % (0.0-10.0)
[2020-03-22 08:19] LABS: Band 42 % (5-11); Lymphocytes 3 % (21-51); MDiff Complete? YES; Monocytes 2 % (0-10); Neutrophil 53 % (42-75); Platelet Morphology Comment Appears Decreased; Polychromasia SLIGHT = 2-3 cells (100X) (0-2/hpf); Reflex for Review?? NO; Vacuoles SLIGHT
[2020-03-22] MEDS: Famotidine/PF 20 mg/2ml Vial SLOW IVP SCH ×2 (08:46→21:16)
[2020-03-22] MEDS: Ondansetron PF 4 MG/2 ML Vial IVP PRN ×2 (08:46→16:32)
[2020-03-22] MEDS: Docusate 100 MG CAP PO SCH ×3 (08:46→19:33)
[2020-03-22] MEDS: Folic Acid 1 MG TAB PO SCH ×2 (08:46→21:15)
[2020-03-22] MEDS: Enoxaparin Sodium 40 MG/0.4 ML SYRINGE SC SCH (08:47)
[2020-03-22] MEDS: Scopolamine 1.5 mg/72 hour Patch TD SCH (12:29)
[2020-03-22] MEDS ORDERED: Potassium Chloride 20 MEQ TAB PO SCH (12:45)
--- NOTE | 2020-03-22 13:02 | PDOC.FMACP ---
Advance Care Planning - Problem (1) Sepsis Status: Acute Code(s): A41.9 - SEPSIS, UNSPECIFIED ORGANISM (2) Hypertension Status: Acute Code(s): I10 - ESSENTIAL (PRIMARY) HYPERTENSION (3) Palliative care encounter Status: Acute Code(s): Z51.5 - ENCOUNTER FOR PALLIATIVE CARE (4) Malignant melanoma Status: Acute Code(s): C43.9 - MALIGNANT MELANOMA OF SKIN, UNSPECIFIED - Note Participants: patient, palliative care Summary: Palliative Care introduced Advanced Care Planning, opportunity to decline. The diagnosis, prognosis and goals of care were discussed. Appropriate forms and documentation to accomplish the goals of care were discussed. All questions were answered. Elected to complete MPOA, origional and copy given to patient. Copy also placed on chart for medical records. Discussed Directive to physician, elected not to complete at this time. Ms Mayfield relayed she would desire CPR, however if no meaningful recovery she would not like for life sustaining measures to continue. She further relayed no PEG or Trach if needed. Encouraged to consider documenting wishes in Directive to Physician. Most important to her are her tow children and two granddaughters. They call her Grammie. Her goal is to live another 20 years and see her granddaughter thrive in their careers, if they desire and be a great grandmother. Palliative Care will sign off, please reconsult if we can assist in the future. Time Spent (mins): 45
--- NOTE | 2020-03-22 14:56 | PDOC.HOSPP ---
- Subjective Encounter Date: 03/22/20 Subjective: The patient is complaining of nausea and vomiting. - Objective Vital Signs & Weight: Vital Signs (12 hours) Temp Pulse Resp BP BP BP BP 03/22/20 12:45 98.8 F 82 20 140/63 03/22/20 10:16 121/56 L 109/51 L 03/22/20 07:04 97.6 F 91 22 H 125/60 03/22/20 03:44 98.8 F 94 20 108/60 Pulse Ox 03/22/20 12:45 93 L 03/22/20 10:16 03/22/20 07:04 99 03/22/20 03:44 95 Weight Admit Weight 272 lb 4.8 oz Weight 272 lb 4.8 oz I&O: 03/21/20 03/22/20 03/23/20 06:59 06:59 06:59 Intake Total 800 Output Total 20 Balance 780 Result Diagrams: 03/22/20 06:10 03/22/20 03:24 Hospitalist ROS - Medication Medications: Active Medications Generic Name Dose Route Start Last Admin Trade Name Freq PRN Reason Stop Dose Admin Acetaminophen 1,000 mg 03/21/20 14:34 03/21/20 18:17 Acetaminophen 500 Mg Tab PO 1,000 mg Q6H PRN Administration Fever>101/(Mi/Mod/Sev) Pain Atorvastatin Calcium 20 mg 03/21/20 21:00 03/21/20 21:47 Atorvastatin Calcium 20 Mg Tab PO 20 mg HS HANDY Administration Docusate Sodium 100 mg 03/21/20 21:00 03/22/20 08:50 Docusate 100 Mg Cap PO Not Given BID HANDY Enoxaparin Sodium 40 mg 03/22/20 09:00 03/22/20 08:47 Enoxaparin Sodium 40 Mg/0.4 Ml Syringe SC Not Given 0900 HANDY Famotidine 20 mg 03/21/20 21:00 03/22/20 08:46 Famotidine/Pf 20 Mg/2ml Vial SLOW IVP 20 mg Q12HR HANDY Administration Folic Acid 1 mg 03/21/20 21:00 03/22/20 08:46 Folic Acid 1 Mg Tab PO 1 mg BID HANDY Administration Montelukast Sodium 10 mg 03/21/20 21:00 03/21/20 21:47 Montelukast Sodium 10 Mg Tablet PO 10 mg HS HANDY Administration Ondansetron HCl 4 mg 03/21/20 11:36 03/22/20 08:46 Ondansetron Pf 4 Mg/2 Ml Vial IVP 4 mg Q6H PRN Administration Nausea/Vomiting Potassium Chloride 40 meq 03/22/20 12:45 03/22/20 13:35 Potassium Chloride 20 Meq Tab PO 03/22/20 16:00 40 meq NOW HANDY Administration Scopolamine 1.5 mg 03/22/20 12:00 03/22/20 12:29 Scopolamine 1.5 Mg/72 Hour Patch TD 1.5 mg Q3D HANDY Administration Sertraline HCl 100 mg 03/22/20 09:00 03/22/20 08:46 Sertraline Hcl 100 Mg Tab PO 100 mg QAM HANDY Administration Sodium Chloride 10 ml 03/21/20 21:00 03/22/20 08:47 Flush - Normal Saline 10 Ml Syringe IVF 10 ml Q12HR HANDY Administration - Exam General Appearance: awake alert ENT: normocephalic atraumatic Neck: supple, no JVD Heart: RRR Respiratory: normal chest expansion, no tachypnea Gastrointestinal: soft, non-tender, non-distended Extremities: no cyanosis, no clubbing Hosp A/P (1) Sepsis Code(s): A41.9 - SEPSIS, UNSPECIFIED ORGANISM Status: Acute (2) Dehydration Code(s): E86.0 - DEHYDRATION Status: Acute (3) Status post chemotherapy Code(s): Z92.21 - PERSONAL HISTORY OF ANTINEOPLASTIC CHEMOTHERAPY Status: Acute (4) Diarrhea Code(s): R19.7 - DIARRHEA, UNSPECIFIED Status: Acute (5) Hypertension Code(s): I10 - ESSENTIAL (PRIMARY) HYPERTENSION Status: Acute (6) Malignant melanoma Code(s): C43.9 - MALIGNANT MELANOMA OF SKIN, UNSPECIFIED Status: Acute - Plan Sepsis in the setting of recent chemotherapy. Source of infection is not entirely clear. Continue broad-spectrum antibiotics. Follow culture results. Continue IV hydration. Scopolamine patch for nausea. Replace potassium.
--- NOTE | 2020-03-22 16:43 | PDOC.MOPN ---
Interval History: fever improved, continues to have diarrhea - Vital Signs Vital Signs: Vital Signs (12 hours) Temp Pulse Resp BP BP BP Pulse Ox 03/22/20 12:45 98.8 F 82 20 140/63 93 L 03/22/20 10:16 121/56 L 109/51 L 03/22/20 07:04 97.6 F 91 22 H 125/60 99 Weight Admit Weight 272 lb 4.8 oz Weight 272 lb 4.8 oz - Physical Exam General: Alert, Oriented x3, No acute distress HEENT: Atraumatic, PERRLA, EOMI, Mucous membr. moist/pink Lungs: Clear to auscultation Cardiovascular: Regular rate, Normal S1, Normal S2, No murmurs, Gallops, Rubs Abdomen: Other Neurological: Normal speech Psych/Mental Status: Mental status NL - Labs Result Diagrams: 03/22/20 06:10 03/22/20 03:24 Lab results: Laboratory Results - last 24 hr 03/22/20 06:10: WBC 5.8, RBC 4.00 L, Hgb 13.7, Hct 39.3, MCV 98.4 H, MCH 34.3 H, MCHC 34.9, RDW 13.0, Plt Count 65 L, MPV 9.7, Neutrophils % 93.0 H, Neutrophils % (Manual) 53, Band Neuts % (Manual) 42 H, Lymphocytes % 4.5 L, Lymphocytes % (Manual) 3 L, Monocytes % 2.2, Monocytes % (Manual) 2, Eosinophils % 0.0, Basophils % 0.4, Neutrophils # 5.4, Lymphocytes # 0.3 L, Monocytes # 0.1 L, Eosinophils # 0.0, Basophils # 0.0, WBC Morphology SLIGHT, Plt Morphology Comment Appears Decreased L, Polychromasia SLIGHT = 2-3 cells 03/22/20 03:24: Sodium 131 L, Potassium 3.2 L, Chloride 107, Carbon Dioxide 12 L, Anion Gap 15, BUN 21 H, Creatinine 0.85, Estimated GFR (MDRD) 65, Glucose 115 H, Calcium 8.1 Status: lab reviewed by me A/P - Problem (1) Dehydration Current Visit: Yes Code(s): E86.0 - DEHYDRATION Status: Acute (2) Malignant melanoma Current Visit: Yes Code(s): C43.9 - MALIGNANT MELANOMA OF SKIN, UNSPECIFIED Status: Acute - Plan Plan: continue IV hydration stool for c.diff hold oral chemo meds discussed with DR. Hernandez
[2020-03-22] MEDS: Sodium Chloride 0.9% 1,000 ML IV SCH (18:36)
[2020-03-22] MEDS: Atorvastatin Calcium 20 MG TAB PO SCH (21:15)
[2020-03-22] MEDS: Montelukast Sodium 10 mg Tablet PO SCH (21:15)
[2020-03-23 07:03] LABS: Hemoglobin 12.2 g/dL (12.0-16.0); Mean Corpuscular HGB CONC 34.6 g/dL (32.0-36.0); Mean Corpuscular Hemoglobin 34.8 pg (27.0-31.0); Mean Platelet Volume 9.8 fL (7.4-10.4); Platelet Count 60 thou/uL (130-400); RBC Distribution Width 13.1 % (11.5-14.5); White Blood Cell (WBC) Count 3.6 thou/uL (4.8-10.8)
[2020-03-23 07:07] LABS: Anion Gap 13 mmol/L (10-20); BUN (Urea Nitrogen) 34 mg/dL (9.8-20.1); Calc. Creatinine Clearance 63 mL/min (70-130); Calcium 8.3 mg/dL (7.8-10.44); Carbon Dioxide 16 mmol/L (23-31); Chloride 109 mmol/L (98-107); Estimated GFR-MDRD 35; Glucose 105 mg/dL (83-110); Potassium 3.4 mmol/L (3.5-5.1); Sodium 135 mmol/L (136-145)
[2020-03-23] MEDS: Folic Acid 1 MG TAB PO SCH ×2 (09:11→20:55)
[2020-03-23] MEDS: Famotidine/PF 20 mg/2ml Vial SLOW IVP SCH ×2 (09:11→20:55)
[2020-03-23] MEDS: Sodium Chloride 0.9% 1,000 ML IV SCH ×3 (09:12→16:44)
[2020-03-23] MEDS: Docusate 100 MG CAP PO SCH ×2 (09:12→20:56)
[2020-03-23] MEDS: Enoxaparin Sodium 40 MG/0.4 ML SYRINGE SC SCH (09:12)
[2020-03-23 09:35] LABS: #Lymphocytes 0.7 thou/uL (1.20-3.40); #Monocytes 0.2 thou/uL (0.11-0.59); #Neutrophils 2.7 thou/uL (1.40-6.50); %Basophils 0.3 % (0.0-1.0); %Eosinophils 0.3 % (0.0-10.0); %Lymphocytes 19.3 % (21.0-51.0); %Monocytes 5.2 % (0.0-10.0); %Neutrophils 74.9 % (42.0-75.0)
--- NOTE | 2020-03-23 14:33 | PDOC.HOSPP ---
- Subjective Encounter Date: 03/23/20 Subjective: The patient denies any nausea or vomiting today. She has been intermittently confused per nursing staff. - Objective Vital Signs & Weight: Vital Signs (12 hours) Temp Pulse Resp BP Pulse Ox 03/23/20 07:38 97.9 F 89 18 115/56 L 98 03/23/20 04:11 98.6 F Weight Admit Weight 272 lb 4.8 oz Weight 272 lb 4.8 oz I&O: 03/22/20 03/23/20 03/24/20 06:59 06:59 06:59 Intake Total 800 1400 Output Total 20 Balance 780 1400 Result Diagrams: 03/23/20 06:27 03/23/20 06:27 Hospitalist ROS - Medication Medications: Active Medications Generic Name Dose Route Start Last Admin Trade Name Freq PRN Reason Stop Dose Admin Acetaminophen 1,000 mg 03/21/20 14:34 03/21/20 18:17 Acetaminophen 500 Mg Tab PO 1,000 mg Q6H PRN Administration Fever>101/(Mi/Mod/Sev) Pain Atorvastatin Calcium 20 mg 03/21/20 21:00 03/22/20 21:15 Atorvastatin Calcium 20 Mg Tab PO 20 mg HS HANDY Administration Docusate Sodium 100 mg 03/21/20 21:00 03/23/20 09:12 Docusate 100 Mg Cap PO Not Given BID HANDY Enoxaparin Sodium 40 mg 03/22/20 09:00 03/23/20 09:12 Enoxaparin Sodium 40 Mg/0.4 Ml Syringe SC Not Given 0900 HANDY Famotidine 20 mg 03/21/20 21:00 03/23/20 09:11 Famotidine/Pf 20 Mg/2ml Vial SLOW IVP 20 mg Q12HR HANDY Administration Folic Acid 1 mg 03/21/20 21:00 03/23/20 09:11 Folic Acid 1 Mg Tab PO 1 mg BID HANDY Administration Sodium Chloride 1,000 mls @ 125 mls/hr 03/23/20 08:41 03/23/20 09:12 Normal Saline 0.9% IV 1,000 mls .Q8H HANDY Administration Montelukast Sodium 10 mg 03/21/20 21:00 03/22/20 21:15 Montelukast Sodium 10 Mg Tablet PO 10 mg HS HANDY Administration Ondansetron HCl 4 mg 03/21/20 11:36 03/22/20 16:32 Ondansetron Pf 4 Mg/2 Ml Vial IVP 4 mg Q6H PRN Administration Nausea/Vomiting Scopolamine 1.5 mg 03/22/20 12:00 03/22/20 12:29 Scopolamine 1.5 Mg/72 Hour Patch TD 1.5 mg Q3D HANDY Administration Sertraline HCl 100 mg 03/22/20 09:00 03/23/20 09:11 Sertraline Hcl 100 Mg Tab PO 100 mg QAM HANDY Administration Sodium Chloride 10 ml 03/21/20 21:00 03/23/20 09:11 Flush - Normal Saline 10 Ml Syringe IVF 10 ml Q12HR HANDY Administration - Exam General Appearance: awake alert ENT: normocephalic atraumatic Neck: supple, no JVD Respiratory: normal chest expansion, no tachypnea Gastrointestinal: soft Neurological: cranial nerve grossly intact, no focal deficits Hosp A/P (1) Sepsis Code(s): A41.9 - SEPSIS, UNSPECIFIED ORGANISM Status: Acute (2) Dehydration Code(s): E86.0 - DEHYDRATION Status: Acute (3) Status post chemotherapy Code(s): Z92.21 - PERSONAL HISTORY OF ANTINEOPLASTIC CHEMOTHERAPY Status: Acute (4) Diarrhea Code(s): R19.7 - DIARRHEA, UNSPECIFIED Status: Acute (5) Hypertension Code(s): I10 - ESSENTIAL (PRIMARY) HYPERTENSION Status: Acute (6) Malignant melanoma Code(s): C43.9 - MALIGNANT MELANOMA OF SKIN, UNSPECIFIED Status: Acute - Plan Sepsis in the setting of recent chemotherapy. Social infection is likely UTI. Continue broad-spectrum antibiotics. Cultures show no growth so far. Continue IV hydration. Scopolamine patch for nausea. YOSEPH is now present likely due to volume losses and sepsis. Increase IV fluids to 125 cc/h. Check CBC and BMP in the morning
--- NOTE | 2020-03-23 17:13 | PDOC.MOPN ---
Interval History: Pt feeling much better. No fevers. Vomiting and diarrhea yesterday but none overnight or this morning. Cultures NGTD, final pending. - Vital Signs Vital Signs: Vital Signs (12 hours) Temp Pulse Resp BP Pulse Ox 03/23/20 07:38 97.9 F 89 18 115/56 L 98 Weight Admit Weight 272 lb 4.8 oz Weight 272 lb 4.8 oz - Physical Exam General: Alert, Oriented x3, Cooperative HEENT: EOMI Lungs: Normal air movement Cardiovascular: Regular rate - Labs Result Diagrams: 03/23/20 06:27 03/23/20 06:27 Lab results: Laboratory Results - last 24 hr 03/23/20 06:27: WBC 3.6 L, RBC 3.50 L, Hgb 12.2, Hct 35.1 L, MCV 100.0 H, MCH 34.8 H, MCHC 34.6, RDW 13.1, Plt Count 60 L, MPV 9.8, Neutrophils % 74.9, Neutrophils % (Manual) Not Reportable, Lymphocytes % 19.3 L, Monocytes % 5.2, Eosinophils % 0.3, Basophils % 0.3, Neutrophils # 2.7, Lymphocytes # 0.7 L, Monocytes # 0.2, Eosinophils # 0.0, Basophils # 0.0 03/23/20 06:27: Sodium 135 L, Potassium 3.4 L, Chloride 109 H, Carbon Dioxide 16 L, Anion Gap 13, BUN 34 H, Creatinine 1.44 H, Estimated GFR (MDRD) 35, Glucose 105, Calcium 8.3 A/P - Problem (1) Malignant melanoma Current Visit: Yes Code(s): C43.9 - MALIGNANT MELANOMA OF SKIN, UNSPECIFIED Status: Acute (2) Sepsis Current Visit: Yes Code(s): A41.9 - SEPSIS, UNSPECIFIED ORGANISM Status: Acute - Plan Plan: Cont holding oral dabrafenib/trametinib -- fevers may be 2/2 infection or pyrexia from treatment f/u final cultures cont antibiotics may do a trial of treatment again if no source found and if fevers recur to this degree will likely need to stop if cannot be controlled easily at home
[2020-03-23] MEDS: Montelukast Sodium 10 mg Tablet PO SCH (20:55)
[2020-03-23] MEDS: Atorvastatin Calcium 20 MG TAB PO SCH (20:55)
[2020-03-24] MEDS: Sodium Chloride 0.9% 1,000 ML IV SCH (01:01)
[2020-03-24 05:01] LABS: Anion Gap 15 mmol/L (10-20); BUN (Urea Nitrogen) 31 mg/dL (9.8-20.1); Calc. Creatinine Clearance 69 mL/min (70-130); Calcium 8.5 mg/dL (7.8-10.44); Carbon Dioxide 11 mmol/L (23-31); Chloride 113 mmol/L (98-107); Estimated GFR-MDRD 39; Glucose 95 mg/dL (83-110); Potassium 3.9 mmol/L (3.5-5.1); Sodium 135 mmol/L (136-145)
[2020-03-24 07:45] LABS: #Basophils 0.1 thou/uL (0.0-0.2); #Lymphocytes 1.2 thou/uL (1.20-3.40); #Monocytes 0.6 thou/uL (0.11-0.59); #Neutrophils 5.2 thou/uL (1.40-6.50); %Basophils 1.1 % (0.0-1.0); %Eosinophils 0.3 % (0.0-10.0); %Lymphocytes 17.4 % (21.0-51.0); %Monocytes 7.7 % (0.0-10.0); %Neutrophils 73.5 % (42.0-75.0); Hemoglobin 11.9 g/dL (12.0-16.0); Mean Corpuscular HGB CONC 33.4 g/dL (32.0-36.0); Mean Corpuscular Hemoglobin 34.2 pg (27.0-31.0); Mean Platelet Volume 10.5 fL (7.4-10.4); Platelet Count 49 thou/uL (130-400); RBC Distribution Width 13.3 % (11.5-14.5); Red Blood Cell (RBC) Count 3.49 mill/uL (4.20-5.40); White Blood Cell (WBC) Count 7.1 thou/uL (4.8-10.8)
[2020-03-24] MEDS: Docusate 100 MG CAP PO SCH ×2 (09:14→20:15)
[2020-03-24] MEDS: Folic Acid 1 MG TAB PO SCH ×2 (09:14→20:14)
[2020-03-24] MEDS: Famotidine/PF 20 mg/2ml Vial SLOW IVP SCH ×2 (09:14→20:14)
[2020-03-24] MEDS: Sodium Bicarbonate Tab 325 MG TAB PO SCH ×2 (09:14→20:14)
[2020-03-24] MEDS: Enoxaparin Sodium 40 MG/0.4 ML SYRINGE SC SCH ×2 (09:14→19:50)
--- NOTE | 2020-03-24 13:13 | EKG ---
Test Reason : NAUSEA Blood Pressure : / mmHG Vent. Rate : 077 BPM Atrial Rate : 077 BPM P-R Int : 162 ms QRS Dur : 092 ms QT Int : 392 ms P-R-T Axes : 075 027 057 degrees QTc Int : 443 ms Normal sinus rhythm Confirmed by YASMANI BELL DO ([id number]), commercial production editor GERONIMO ESCAMILLA ([id number]) on 03/24/2020 1:13:18 PM Referred By: RAY Confirmed By:YASMANI BELL DO
--- NOTE | 2020-03-24 13:18 | PDOC.HOSPP ---
- Subjective Subjective: pt was seen and examined at bedside. intermittently confused. No acute event overnight. cultures no growth. - Objective Vital Signs & Weight: Vital Signs (12 hours) Temp Pulse Resp BP Pulse Ox 03/24/20 08:09 98.5 F 88 20 142/74 H 94 L Weight Admit Weight 272 lb 4.8 oz Weight 272 lb 4.8 oz I&O: 03/23/20 03/24/20 03/25/20 06:59 06:59 06:59 Intake Total 1400 3515 Output Total 200 Balance 1400 3315 Result Diagrams: 03/24/20 07:38 03/24/20 04:16 Radiology Reviewed by me: Yes EKG Reviewed by me: Yes Hospitalist ROS - Medication Medications: Active Medications Generic Name Dose Route Start Last Admin Trade Name Freq PRN Reason Stop Dose Admin Acetaminophen 1,000 mg 03/21/20 14:34 03/21/20 18:17 Acetaminophen 500 Mg Tab PO 1,000 mg Q6H PRN Administration Fever>101/(Mi/Mod/Sev) Pain Atorvastatin Calcium 20 mg 03/21/20 21:00 03/23/20 20:55 Atorvastatin Calcium 20 Mg Tab PO 20 mg HS HANDY Administration Docusate Sodium 100 mg 03/21/20 21:00 03/24/20 09:14 Docusate 100 Mg Cap PO 100 mg BID HANDY Administration Enoxaparin Sodium 40 mg 03/22/20 09:00 03/24/20 09:14 Enoxaparin Sodium 40 Mg/0.4 Ml Syringe SC 40 mg 0900 HANDY Administration Famotidine 20 mg 03/21/20 21:00 03/24/20 09:14 Famotidine/Pf 20 Mg/2ml Vial SLOW IVP 20 mg Q12HR HANDY Administration Folic Acid 1 mg 03/21/20 21:00 03/24/20 09:14 Folic Acid 1 Mg Tab PO 1 mg BID HANDY Administration Sodium Bicarbonate 75 meq/ 1,075 mls @ 75 mls/hr 03/24/20 07:45 03/24/20 09:13 Sodium Chloride IV 1,075 mls .[id number] HANDY Administration Montelukast Sodium 10 mg 03/21/20 21:00 03/23/20 20:55 Montelukast Sodium 10 Mg Tablet PO 10 mg HS HANDY Administration Ondansetron HCl 4 mg 03/21/20 11:36 03/22/20 16:32 Ondansetron Pf 4 Mg/2 Ml Vial IVP 4 mg Q6H PRN Administration Nausea/Vomiting Scopolamine 1.5 mg 03/22/20 12:00 03/22/20 12:29 Scopolamine 1.5 Mg/72 Hour Patch TD 1.5 mg Q3D HANDY Administration Sertraline HCl 100 mg 03/22/20 09:00 03/24/20 09:14 Sertraline Hcl 100 Mg Tab PO 100 mg QAM HANDY Administration Sodium Bicarbonate 650 mg 03/24/20 09:00 03/24/20 09:14 Sodium Bicarbonate Tab 325 Mg Tab PO 650 mg BID HANDY Administration Sodium Chloride 10 ml 03/21/20 21:00 03/24/20 09:14 Flush - Normal Saline 10 Ml Syringe IVF 10 ml Q12HR HANDY Administration - Exam General Appearance: NAD Eye: PERRL ENT: normocephalic atraumatic Neck: supple Heart: RRR Respiratory: CTAB Gastrointestinal: soft Extremities: no cyanosis, 1+ LE edema Skin: normal turgor Neurological - other findings: confused Musculoskeletal: normal tone Psychiatric: normal affect, not oriented Hosp A/P - Plan 79 year female with history of malignant melanoma, started on chemotherapy about a week ago presented with high fever, lethargy and confusion Acute metabolic encephalopathy --cont supportive cares. IVF hydration, cont PT. Fever --likely d/t recent chemotherapy. Cultures no growth. Afebrile. COVID and other viral respiratory screening negative SIRS --non-infectious. Pt was initially admitted for presumed sepsis, ruled out. Likely drug related, oral chemotherapy YOSEPH --secondary to volume depletion, cont IVF, adjusted add sodium bicarb to correct underlying metabolic acidosis Metabolic acidosis -mgt as above. Possible UTI --UA appears to be contaminated, not convincing. culture no growth. Ruled out. Malignant Melanoma --mgt as per oncology team, appreciate input Thrombocytopenia --d/t chemotherapy. Hold Lovenox. Follow CBC Dyslipidemia --cont statin Code Status: Full DVT ppx: TEDS. Lovenox on hold d/t severe thrombocytopenia GI ppx: Pepcid Disposition: Home when medically stable.
[2020-03-24] MEDS: Atorvastatin Calcium 20 MG TAB PO SCH (20:14)
[2020-03-24] MEDS: Montelukast Sodium 10 mg Tablet PO SCH (20:14)
[2020-03-24] MEDS: hydrALAZINE 20 MG/ML VIAL SLOW IVP PRN (23:49)
[2020-03-25] MEDS: hydrALAZINE 20 MG/ML VIAL SLOW IVP PRN ×4 (04:27→19:38)
[2020-03-25 06:18] LABS: #Lymphocytes 1.8 thou/uL (1.20-3.40); #Monocytes 0.9 thou/uL (0.11-0.59); #Neutrophils 5.3 thou/uL (1.40-6.50); %Basophils 0.4 % (0.0-1.0); %Eosinophils 0.3 % (0.0-10.0); %Lymphocytes 22.4 % (21.0-51.0); %Monocytes 11.6 % (0.0-10.0); %Neutrophils 65.3 % (42.0-75.0); Hemoglobin 12.4 g/dL (12.0-16.0); Mean Corpuscular HGB CONC 35.2 g/dL (32.0-36.0); Mean Corpuscular Hemoglobin 34.7 pg (27.0-31.0); Mean Corpuscular Volume 98.5 fL (78.0-98.0); Mean Platelet Volume 10.1 fL (7.4-10.4); Platelet Count 59 thou/uL (130-400); RBC Distribution Width 13.2 % (11.5-14.5); Red Blood Cell (RBC) Count 3.56 mill/uL (4.20-5.40); White Blood Cell (WBC) Count 8.1 thou/uL (4.8-10.8)
[2020-03-25 06:42] LABS: Anion Gap 15 mmol/L (10-20); BUN (Urea Nitrogen) 29 mg/dL (9.8-20.1); Calc. Creatinine Clearance 82 mL/min (70-130); Calcium 8.7 mg/dL (7.8-10.44); Carbon Dioxide 19 mmol/L (23-31); Chloride 109 mmol/L (98-107); Estimated GFR-MDRD 48; Glucose 103 mg/dL (83-110); Sodium 140 mmol/L (136-145)
[2020-03-25 06:45] LABS: Potassium 2.9 mmol/L (3.5-5.1)
[2020-03-25] MEDS ORDERED: Potassium Chloride 20 MEQ TAB PO SCH (07:15)
[2020-03-25] MEDS ORDERED: Labetalol HCl 100 MG/20 ML VIAL SLOW IVP SCH (07:45)
[2020-03-25] MEDS ORDERED: Potassium Chloride 40 MEQ in Sodium Chloride 0.9% 250 ML 250 ML IVPB SCH (08:00)
--- NOTE | 2020-03-25 09:05 | CT ---
EXAM: Brain CTWithout contrast: HISTORY: Confusion, hypertensive urgency COMPARISON: Brain MRI, 03/01/2020 FINDINGS: Mild atrophy and chronic white matter ischemic change. No focal mass or midline shift. No intra or extra-axial hemorrhage. Sinuses and mastoids are clear of acute process. IMPRESSION: No mass or bleed or other significant acute intracranial process.
[2020-03-25] MEDS: Sodium Bicarbonate Tab 325 MG TAB PO SCH ×2 (09:40→17:54)
[2020-03-25] MEDS: Amlodipine 10 MG TAB PO SCH ×2 (09:40→17:54)
[2020-03-25] MEDS: Docusate 100 MG CAP PO SCH ×3 (09:40→23:59)
[2020-03-25] MEDS: Folic Acid 1 MG TAB PO SCH ×2 (09:41→17:53)
[2020-03-25] MEDS: Famotidine/PF 20 mg/2ml Vial SLOW IVP SCH (09:46)
--- NOTE | 2020-03-25 10:47 | RAD ---
EXAM: Chest one view: HISTORY: Hypoxemia COMPARISON: 03/21/2020 FINDINGS: Heart size: Within normal limits. Lungs: Clear of acute process. No evidence for confluent lobar pneumonia, significant pleural effusion, acute edema, or pneumothorax , or other significant acute process. IMPRESSION: Stable exam. Atherosclerosis.
--- NOTE | 2020-03-25 12:00 | PDOC.HOSPP ---
- Subjective Subjective: Patient was seen examined at bedside. Patient remains confused. Nursing staff reported patient had a rough night. Her blood pressure was uncontrolled. However, responded well with IV labetalol. Stat CT was done, came back negative as well as a chest x-ray was unremarkable. Her metabolic acidosis much improved. Her potassium remains low. Discussed with her daughter at bedside. - Objective Vital Signs & Weight: Vital Signs (12 hours) Temp Pulse Resp BP Pulse Ox 03/25/20 09:40 92 03/25/20 08:25 138/64 03/25/20 08:07 97.7 F 92 18 200/86 H 93 L 03/25/20 08:05 98 03/25/20 05:01 98 22 H 171/55 H 03/25/20 04:31 80 20 94 L 03/25/20 04:27 80 03/25/20 04:16 80 20 209/84 H 03/25/20 01:33 86 20 189/81 H Weight Admit Weight 272 lb 4.8 oz Weight 272 lb 4.8 oz I&O: 03/24/20 03/25/20 03/26/20 06:59 06:59 06:59 Intake Total 3515 Output Total 200 350 Balance 3315 -350 Result Diagrams: 03/25/20 05:37 03/25/20 05:37 Radiology Reviewed by me: Yes EKG Reviewed by me: Yes Hospitalist ROS - Medication Medications: Active Medications Generic Name Dose Route Start Last Admin Trade Name Freq PRN Reason Stop Dose Admin Acetaminophen 1,000 mg 03/21/20 14:34 03/21/20 18:17 Acetaminophen 500 Mg Tab PO 1,000 mg Q6H PRN Administration Fever>101/(Mi/Mod/Sev) Pain Albuterol/Ipratropium 3 ml 03/24/20 13:58 03/25/20 04:31 Ipratropium/Albuterol Sulfate 3 Ml Neb NEB 3 ml [id number] PRN Administration SOB &/or Wheezing Amlodipine Besylate 10 mg 03/25/20 09:00 03/25/20 09:40 Amlodipine 10 Mg Tab PO Not Given DAILY HANDY Atorvastatin Calcium 20 mg 03/21/20 21:00 03/24/20 20:14 Atorvastatin Calcium 20 Mg Tab PO 20 mg HS HANDY Administration Docusate Sodium 100 mg 03/21/20 21:00 03/25/20 09:40 Docusate 100 Mg Cap PO 100 mg BID HANDY Administration Enoxaparin Sodium 40 mg 03/22/20 09:00 03/24/20 19:50 Enoxaparin Sodium 40 Mg/0.4 Ml Syringe SC Not Given 09 HANDY Famotidine 20 mg 03/21/20 21:00 03/25/20 09:46 Famotidine/Pf 20 Mg/2ml Vial SLOW IVP Not Given Q12HR HANDY Folic Acid 1 mg 03/21/20 21:00 03/25/20 09:41 Folic Acid 1 Mg Tab PO 1 mg BID HANDY Administration Sodium Bicarbonate 75 meq/ 1,075 mls @ 75 mls/hr 03/24/20 07:45 03/24/20 22:25 Sodium Chloride IV 1,075 mls .[id number] HANDY Administration Potassium Chloride 40 meq/ 270 mls @ 67.5 mls/hr 03/25/20 08:00 03/25/20 08:13 Sodium Chloride IVPB 03/25/20 12:00 270 mls NOW HANDY Administration Montelukast Sodium 10 mg 03/21/20 21:00 03/24/20 20:14 Montelukast Sodium 10 Mg Tablet PO 10 mg HS HANDY Administration Ondansetron HCl 4 mg 03/21/20 11:36 03/22/20 16:32 Ondansetron Pf 4 Mg/2 Ml Vial IVP 4 mg Q6H PRN Administration Nausea/Vomiting Quetiapine Fumarate 25 mg 03/25/20 09:00 03/25/20 09:40 Quetiapine Fumarate 25 Mg Tab PO 25 mg BID HANDY Administration Scopolamine 1.5 mg 03/22/20 12:00 03/22/20 12:29 Scopolamine 1.5 Mg/72 Hour Patch TD 1.5 mg Q3D HANDY Administration Sertraline HCl 100 mg 03/22/20 09:00 03/25/20 09:40 Sertraline Hcl 100 Mg Tab PO 100 mg QAM HANDY Administration Sodium Bicarbonate 650 mg 03/24/20 09:00 03/25/20 09:40 Sodium Bicarbonate Tab 325 Mg Tab PO 650 mg BID HNADY Administration Sodium Chloride 10 ml 03/21/20 21:00 03/25/20 08:07 Flush - Normal Saline 10 Ml Syringe IVF 10 ml Q12HR HANDY Administration - Exam General Appearance: NAD Eye: PERRL ENT: normocephalic atraumatic Neck: supple Heart: RRR Respiratory: CTAB Gastrointestinal: soft Extremities: no cyanosis Musculoskeletal: normal tone Psychiatric: normal affect, oriented to place, lethargic Psychiatric - other findings: Confused Hosp A/P - Plan 79 year female with history of malignant melanoma, started on chemotherapy about a week ago presented with high fever, lethargy and confusion Acute metabolic encephalopathy --CT head negative. cont supportive cares. IVF hydration, cont PT. --add Seroquel Hypertensive urgency --CT head negative. No hx of HTN. responded with IV labetalol. Add Norvasc for BP control Fever --likely d/t recent chemotherapy. Cultures no growth. Afebrile. COVID and other viral respiratory screening negative. CXR negative SIRS --non-infectious. Pt was initially admitted for presumed sepsis, ruled out. Likely drug related, oral chemotherapy YOSEPH - resolved --secondary to volume depletion, adjusted IVF, sodium bicarb to correct underlying metabolic acidosis Metabolic acidosis - improved -mgt as above. Possible UTI --UA appears to be contaminated, not convincing. culture no growth. Ruled out. Malignant Melanoma --mgt as per oncology team, appreciate input Thrombocytopenia --d/t chemotherapy. Hold Lovenox. Follow CBC Dyslipidemia --cont statin Code Status: Full DVT ppx: TEDS. Lovenox on hold d/t severe thrombocytopenia GI ppx: Pepcid Disposition: Home when medically stable.
[2020-03-25 12:34] LABS: Anion Gap 15 mmol/L (10-20); BUN (Urea Nitrogen) 29 mg/dL (9.8-20.1); Calc. Creatinine Clearance 90 mL/min (70-130); Calcium 8.7 mg/dL (7.8-10.44); Carbon Dioxide 13 mmol/L (23-31); Chloride 115 mmol/L (98-107); Estimated GFR-MDRD 53; Glucose 112 mg/dL (83-110); Potassium 4.1 mmol/L (3.5-5.1); Sodium 139 mmol/L (136-145)
[2020-03-25] MEDS: Scopolamine 1.5 mg/72 hour Patch TD SCH (15:14)
[2020-03-25] MEDS: Metoprolol Tartrate 5 MG/5 ML VIAL IVP SCH (17:12)
[2020-03-25] MEDS: Atorvastatin Calcium 20 MG TAB PO SCH (23:58)
[2020-03-26] MEDS: Folic Acid 1 MG TAB PO SCH ×3 (00:01→22:59)
[2020-03-26] MEDS: Montelukast Sodium 10 mg Tablet PO SCH ×2 (00:01→22:59)
[2020-03-26] MEDS: Sodium Bicarbonate Tab 325 MG TAB PO SCH ×3 (00:01→22:55)
[2020-03-26] MEDS: Metoprolol Tartrate 5 MG/5 ML VIAL IVP SCH ×3 (00:02→12:53)
[2020-03-26] MEDS: Famotidine/PF 20 mg/2ml Vial SLOW IVP SCH ×4 (00:04→22:52)
[2020-03-26] MEDS: hydrALAZINE 20 MG/ML VIAL SLOW IVP PRN (04:10)
[2020-03-26 06:04] LABS: Anion Gap 14 mmol/L (10-20); BUN (Urea Nitrogen) 28 mg/dL (9.8-20.1); Calc. Creatinine Clearance 95 mL/min (70-130); Calcium 8.3 mg/dL (7.8-10.44); Carbon Dioxide 20 mmol/L (23-31); Chloride 113 mmol/L (98-107); Estimated GFR-MDRD 57; Glucose 99 mg/dL (83-110); Magnesium 1.8 mg/dL (1.6-2.6); Potassium 3.5 mmol/L (3.5-5.1); Sodium 143 mmol/L (136-145)
[2020-03-26 06:42] LABS: Hemoglobin 10.9 g/dL (12.0-16.0); Mean Corpuscular HGB CONC 33.9 g/dL (32.0-36.0); Mean Corpuscular Hemoglobin 33.3 pg (27.0-31.0); Mean Corpuscular Volume 98.3 fL (78.0-98.0); Platelet Count 101 thou/uL (130-400); RBC Distribution Width 13.5 % (11.5-14.5); Red Blood Cell (RBC) Count 3.29 mill/uL (4.20-5.40); White Blood Cell (WBC) Count 6.8 thou/uL (4.8-10.8)
[2020-03-26 06:46] LABS: Band 6 % (5-11); Lymphocytes 29 % (21-51); MDiff Complete? YES; Monocytes 6 % (0-10); Neutrophil 59 % (42-75); Platelet Morphology Comment Appears Decreased
[2020-03-26] MEDS: Amlodipine 10 MG TAB PO SCH (09:46)
[2020-03-26] MEDS: Docusate 100 MG CAP PO SCH ×3 (09:53→23:51)
[2020-03-26] MEDS ORDERED: Polyethylene Glycol 3350 17 GM Packet PO SCH (10:15)
[2020-03-26] MEDS ORDERED: Metoprolol Tartrate 25 MG TAB PO SCH (12:30)
--- NOTE | 2020-03-26 14:04 | PDOC.HOSPP ---
- Subjective Subjective: Patient was seen examined at bedside. Patient is much more alert today. Discussed with her daughter at bedside. Blood pressure is much better controlled. No acute events overnight. - Objective Vital Signs & Weight: Vital Signs (12 hours) Temp Pulse Resp BP Pulse Ox 03/26/20 11:13 98.2 F 81 20 170/71 H 95 03/26/20 07:48 97.8 F 82 20 184/75 H 95 03/26/20 05:51 180/73 H 03/26/20 04:10 82 03/26/20 03:31 97.9 F 82 20 168/84 H 94 L Weight Admit Weight 272 lb 4.8 oz Weight 272 lb 4.8 oz I&O: 03/25/20 03/26/20 03/27/20 06:59 06:59 06:59 Intake Total 250 360 Output Total 350 200 Balance -350 50 360 Result Diagrams: 03/26/20 05:03 03/26/20 05:03 Radiology Reviewed by me: Yes EKG Reviewed by me: Yes Hospitalist ROS - Medication Medications: Active Medications Generic Name Dose Route Start Last Admin Trade Name Freq PRN Reason Stop Dose Admin Acetaminophen 1,000 mg 03/21/20 14:34 03/21/20 18:17 Acetaminophen 500 Mg Tab PO 1,000 mg Q6H PRN Administration Fever>101/(Mi/Mod/Sev) Pain Albuterol/Ipratropium 3 ml 03/24/20 13:58 03/25/20 04:31 Ipratropium/Albuterol Sulfate 3 Ml Neb NEB 3 ml [id number] PRN Administration SOB &/or Wheezing Amlodipine Besylate 10 mg 03/25/20 09:00 03/26/20 09:46 Amlodipine 10 Mg Tab PO 10 mg DAILY HANDY Administration Atorvastatin Calcium 20 mg 03/21/20 21:00 03/25/20 23:58 Atorvastatin Calcium 20 Mg Tab PO Not Given HS HANDY Docusate Sodium 100 mg 03/21/20 21:00 03/26/20 09:53 Docusate 100 Mg Cap PO Not Given BID HANDY Enoxaparin Sodium 40 mg 03/22/20 09:00 03/24/20 19:50 Enoxaparin Sodium 40 Mg/0.4 Ml Syringe SC Not Given 09 HANDY Famotidine 20 mg 03/21/20 21:00 03/26/20 10:19 Famotidine/Pf 20 Mg/2ml Vial SLOW IVP Not Given Q12HR HANDY Folic Acid 1 mg 03/21/20 21:00 03/26/20 09:46 Folic Acid 1 Mg Tab PO 1 mg BID HANDY Administration Hydralazine HCl 10 mg 03/25/20 07:36 03/26/20 04:10 Hydralazine 20 Mg/Ml Vial SLOW IVP 10 mg Q4H PRN Administration Persistent BP Elevations Metoprolol Tartrate 25 mg 03/26/20 12:30 03/26/20 12:55 Metoprolol Tartrate 25 Mg Tab PO 03/26/20 14:30 25 mg NOW HANDY Administration Montelukast Sodium 10 mg 03/21/20 21:00 03/26/20 00:01 Montelukast Sodium 10 Mg Tablet PO Not Given HS HANDY Ondansetron HCl 4 mg 03/21/20 11:36 03/22/20 16:32 Ondansetron Pf 4 Mg/2 Ml Vial IVP 4 mg Q6H PRN Administration Nausea/Vomiting Quetiapine Fumarate 25 mg 03/25/20 09:00 03/26/20 09:46 Quetiapine Fumarate 25 Mg Tab PO 25 mg BID HANDY Administration Scopolamine 1.5 mg 03/22/20 12:00 03/25/20 15:14 Scopolamine 1.5 Mg/72 Hour Patch TD 1.5 mg Q3D HANDY Administration Sertraline HCl 100 mg 03/22/20 09:00 03/26/20 09:46 Sertraline Hcl 100 Mg Tab PO 100 mg QAM HANDY Administration Sodium Bicarbonate 650 mg 03/24/20 09:00 03/26/20 09:46 Sodium Bicarbonate Tab 325 Mg Tab PO 650 mg BID HANDY Administration Sodium Chloride 10 ml 03/21/20 21:00 03/26/20 09:53 Flush - Normal Saline 10 Ml Syringe IVF 10 ml Q12HR HANDY Administration - Exam General Appearance: NAD Eye: PERRL ENT: normocephalic atraumatic Neck: supple Heart: RRR Respiratory: CTAB Gastrointestinal: soft Extremities: no cyanosis Skin: normal turgor Neurological - other findings: confused but much improved Psychiatric: normal affect, normal behavior Hosp A/P - Plan 79 year female with history of malignant melanoma, started on chemotherapy about a week ago presented with high fever, lethargy and confusion Acute toxic encephalopathy - improved, likely d/t recent chemotherapy. --CT head negative. cont supportive cares. cont PT. --responded well with Seroquel --Rehab consult Hypertensive urgency --CT head negative. No hx of HTN. responded with IV labetalol. Add Norvas c/metoprolol for BP control Fever --likely d/t recent chemotherapy. Cultures no growth. Afebrile. COVID and other viral respiratory screening negative. CXR negative SIRS --non-infectious. Pt was initially admitted for presumed sepsis, ruled out. Likely drug related, oral chemotherapy YOSEPH - resolved --secondary to volume depletion, adjusted IVF, sodium bicarb to correct underlying metabolic acidosis Metabolic acidosis - resolved -mgt as above. Possible UTI --UA appears to be contaminated, not convincing. culture no growth. Ruled out. Malignant Melanoma --mgt as per oncology team, appreciate input Thrombocytopenia - improved --d/t chemotherapy. Hold Lovenox. Follow CBC Dyslipidemia --cont statin Code Status: Full DVT ppx: TEDS. Lovenox on hold d/t severe thrombocytopenia GI ppx: Pepcid Disposition: Home when medically stable.
--- NOTE | 2020-03-26 15:47 | PDOC.MOPN ---
Interval History: occasional confusion. diarrhea resolved. No fevers - Vital Signs Vital Signs: Vital Signs (12 hours) Temp Pulse Pulse Pulse Resp BP BP 03/26/20 15:11 97.4 F L 83 20 03/26/20 13:30 77 76 163/92 H 162/79 H 03/26/20 11:13 98.2 F 81 20 03/26/20 07:48 97.8 F 82 20 03/26/20 05:51 03/26/20 04:10 82 BP Pulse Ox 03/26/20 15:11 165/76 H 93 L 03/26/20 13:30 03/26/20 11:13 170/71 H 95 03/26/20 07:48 184/75 H 95 03/26/20 05:51 180/73 H 03/26/20 04:10 Weight Admit Weight 272 lb 4.8 oz Weight 272 lb 4.8 oz - Physical Exam General: Alert HEENT: Atraumatic, PERRLA, EOMI, Mucous membr. moist/pink Lungs: Clear to auscultation, Normal air movement Cardiovascular: Regular rate, Normal S1, Normal S2, No murmurs, Gallops, Rubs Abdomen: Normal bowel sounds, Soft, No tenderness, No hepatospenomegaly, No masses Neurological: Normal speech - Labs Result Diagrams: 03/26/20 05:03 03/26/20 05:03 Lab results: Laboratory Results - last 24 hr 03/26/20 05:03: WBC 6.8, RBC 3.29 L, Hgb 10.9 L, Hct 32.3 L, MCV 98.3 H, MCH 33.3 H, MCHC 33.9, RDW 13.5, Plt Count 101 L, MPV 10.0, Neutrophils % (Manual) 59, Band Neuts % (Manual) 6, Lymphocytes % (Manual) 29, Monocytes % (Manual) 6, Lymphocytes # Not Reportable, Plt Morphology Comment Appears Decreased L 03/26/20 05:03: Sodium 143, Potassium 3.5, Chloride 113 H, Carbon Dioxide 20 L, Anion Gap 14, BUN 28 H, Creatinine 0.95, Estimated GFR (MDRD) 57, Glucose 99, Calcium 8.3, Magnesium 1.8 Status: lab reviewed by me A/P - Problem (1) Dehydration Current Visit: Yes Code(s): E86.0 - DEHYDRATION Status: Acute (2) Malignant melanoma Current Visit: Yes Code(s): C43.9 - MALIGNANT MELANOMA OF SKIN, UNSPECIFIED Status: Acute - Plan Plan: Cont holding oral dabrafenib/trametinib -- fevers may be 2/2 infection or pyrexia from treatment cont antibiotics per hospitalist may do a trial of treatment again if no source found and if fevers recur to this degree will likely need to stop if cannot be controlled easily at home likely need rehab at discharge
[2020-03-26] MEDS: Atorvastatin Calcium 20 MG TAB PO SCH (22:55)
[2020-03-26] MEDS: Metoprolol Tartrate 25 MG TAB PO SCH (22:56)
[2020-03-26] MEDS: Acetaminophen 500 MG TAB PO PRN (22:57)
[2020-03-27 05:22] LABS: Anion Gap 12 mmol/L (10-20); BUN (Urea Nitrogen) 26 mg/dL (9.8-20.1); Calc. Creatinine Clearance 103 mL/min (70-130); Calcium 8.2 mg/dL (7.8-10.44); Carbon Dioxide 23 mmol/L (23-31); Chloride 110 mmol/L (98-107); Estimated GFR-MDRD 62; Glucose 94 mg/dL (83-110); Potassium 3.2 mmol/L (3.5-5.1); Sodium 142 mmol/L (136-145)
[2020-03-27 05:56] LABS: Hemoglobin 10.1 g/dL (12.0-16.0); Mean Corpuscular HGB CONC 33.7 g/dL (32.0-36.0); Mean Corpuscular Hemoglobin 33.9 pg (27.0-31.0); Mean Platelet Volume 8.9 fL (7.4-10.4); Platelet Count 131 thou/uL (130-400); RBC Distribution Width 13.4 % (11.5-14.5); Red Blood Cell (RBC) Count 2.98 mill/uL (4.20-5.40); White Blood Cell (WBC) Count 5.5 thou/uL (4.8-10.8)
[2020-03-27 06:00] LABS: Band 2 % (5-11); Eosinophils 4 % (0-10); Lymphocytes 35 % (21-51); MDiff Complete? YES; Monocytes 18 % (0-10); Neutrophil 41 % (42-75)
[2020-03-27] MEDS: Docusate 100 MG CAP PO SCH ×2 (08:38→22:59)
[2020-03-27] MEDS: Sodium Bicarbonate Tab 325 MG TAB PO SCH ×2 (08:38→23:01)
[2020-03-27] MEDS: Amlodipine 10 MG TAB PO SCH (08:38)
[2020-03-27] MEDS: Folic Acid 1 MG TAB PO SCH ×2 (08:39→22:59)
[2020-03-27] MEDS: Metoprolol Tartrate 25 MG TAB PO SCH ×2 (08:39→23:00)
[2020-03-27] MEDS: Famotidine/PF 20 mg/2ml Vial SLOW IVP SCH (08:40)
[2020-03-27] MEDS ORDERED: Potassium Chloride 40 MEQ in Sodium Chloride 0.9% 250 ML 250 ML IVPB SCH (09:45)
[2020-03-27] MEDS ORDERED: Potassium Chloride 20 MEQ TAB PO SCH (10:15)
[2020-03-27] MEDS: Famotidine 20 MG TAB PO SCH ×2 (10:46→22:59)
--- NOTE | 2020-03-27 14:03 | PDOC.HOSPP ---
- Subjective Subjective: Pt was walking with PT. mental status improved, had some degree of intermittent confusion - Objective Vital Signs & Weight: Vital Signs (12 hours) Temp Pulse Pulse Pulse Resp BP BP 03/27/20 12:09 97.8 F 16 03/27/20 11:40 69 18 03/27/20 10:44 03/27/20 09:03 60 80 193/115 H 179/89 H 03/27/20 08:38 82 03/27/20 08:36 03/27/20 08:04 98.0 F 79 16 BP BP Pulse Ox 03/27/20 12:09 168/84 H 97 03/27/20 11:40 95 03/27/20 10:44 172/86 H 03/27/20 09:03 03/27/20 08:38 03/27/20 08:36 200/95 H 03/27/20 08:04 93 L Weight Admit Weight 272 lb 4.8 oz Weight 272 lb 4.8 oz I&O: 03/26/20 03/27/20 03/28/20 06:59 06:59 06:59 Intake Total 250 600 720 Output Total 200 425 600 Balance 50 175 120 Result Diagrams: 03/27/20 04:37 03/27/20 04:37 Radiology Reviewed by me: Yes EKG Reviewed by me: Yes Hospitalist ROS - Medication Medications: Active Medications Generic Name Dose Route Start Last Admin Trade Name Freq PRN Reason Stop Dose Admin Acetaminophen 1,000 mg 03/21/20 14:34 03/26/20 22:57 Acetaminophen 500 Mg Tab PO 1,000 mg Q6H PRN Administration Fever>101/(Mi/Mod/Sev) Pain Albuterol/Ipratropium 3 ml 03/24/20 13:58 03/27/20 11:40 Ipratropium/Albuterol Sulfate 3 Ml Neb NEB 3 ml [id number] PRN Administration SOB &/or Wheezing Amlodipine Besylate 10 mg 03/25/20 09:00 03/27/20 08:38 Amlodipine 10 Mg Tab PO 10 mg DAILY HANDY Administration Atorvastatin Calcium 20 mg 03/21/20 21:00 03/26/20 22:55 Atorvastatin Calcium 20 Mg Tab PO 20 mg HS HANDY Administration Docusate Sodium 100 mg 03/21/20 21:00 03/27/20 08:38 Docusate 100 Mg Cap PO 100 mg BID HANDY Administration Enoxaparin Sodium 40 mg 03/22/20 09:00 03/24/20 19:50 Enoxaparin Sodium 40 Mg/0.4 Ml Syringe SC Not Given 0900 HANDY Famotidine 20 mg 03/27/20 09:00 03/27/20 10:46 Famotidine 20 Mg Tab PO 20 mg Q12HR HANDY Administration Folic Acid 1 mg 03/21/20 21:00 03/27/20 08:39 Folic Acid 1 Mg Tab PO 1 mg BID HANDY Administration Hydralazine HCl 10 mg 03/25/20 07:36 03/26/20 04:10 Hydralazine 20 Mg/Ml Vial SLOW IVP 10 mg Q4H PRN Administration Persistent BP Elevations Montelukast Sodium 10 mg 03/21/20 21:00 03/26/20 22:59 Montelukast Sodium 10 Mg Tablet PO 10 mg HS HANDY Administration Ondansetron HCl 4 mg 03/21/20 11:36 03/22/20 16:32 Ondansetron Pf 4 Mg/2 Ml Vial IVP 4 mg Q6H PRN Administration Nausea/Vomiting Quetiapine Fumarate 25 mg 03/25/20 09:00 03/27/20 08:40 Quetiapine Fumarate 25 Mg Tab PO 25 mg BID HANDY Administration Scopolamine 1.5 mg 03/22/20 12:00 03/25/20 15:14 Scopolamine 1.5 Mg/72 Hour Patch TD 1.5 mg Q3D HANDY Administration Sertraline HCl 100 mg 03/22/20 09:00 03/27/20 08:39 Sertraline Hcl 100 Mg Tab PO 100 mg QAM HANDY Administration Sodium Bicarbonate 650 mg 03/24/20 09:00 03/27/20 08:38 Sodium Bicarbonate Tab 325 Mg Tab PO 650 mg BID HANDY Administration Sodium Chloride 10 ml 03/21/20 21:00 03/27/20 08:40 Flush - Normal Saline 10 Ml Syringe IVF Not Given Q12HR HANDY - Exam Eye: PERRL ENT: normocephalic atraumatic Neck: supple Heart: RRR Respiratory: CTAB Gastrointestinal: soft Extremities: no cyanosis Skin: normal turgor Neurological: cranial nerve grossly intact Neurological - other findings: has some intermittent confusion Musculoskeletal: normal tone, generalized weakness Hosp A/P - Plan 79 year female with history of malignant melanoma, started on chemotherapy about a week ago presented with high fever, lethargy and confusion Acute toxic encephalopathy - improved, likely d/t recent chemotherapy. --CT head negative. cont supportive cares. cont PT. --responded well with Seroquel --Rehab pending Hypertensive urgency - BP improved --CT head negative. No hx of HTN. responded with IV labetalol. Add Norvasc/metoprolol for BP control Fever --likely d/t recent chemotherapy. Cultures no growth. Afebrile. COVID and other viral respiratory screening negative. CXR negative SIRS --non-infectious. Pt was initially admitted for presumed sepsis, ruled out. Likely drug related, oral chemotherapy YOSEPH - resolved --secondary to volume depletion, adjusted IVF, sodium bicarb to correct underlying metabolic acidosis Metabolic acidosis - resolved -mgt as above. Possible UTI --UA appears to be contaminated, otherwise not convincing. culture no growth. Ruled out. Malignant Melanoma --mgt as per oncology team, appreciate input Thrombocytopenia - improved --d/t chemotherapy. Hold Lovenox. Follow CBC Dyslipidemia --cont statin Code Status: Full DVT ppx: TEDS. Lovenox on hold d/t severe thrombocytopenia GI ppx: Pepcid Disposition: Home when medically stable.
--- NOTE | 2020-03-27 16:10 | PDOC.MOPN ---
Interval History: alert today, ambulated in hallway - Vital Signs Vital Signs: Vital Signs (12 hours) Temp Pulse Pulse Pulse Resp BP BP 03/27/20 16:06 98 F 78 14 03/27/20 12:09 97.8 F 16 03/27/20 11:40 69 18 03/27/20 10:44 03/27/20 09:03 60 80 193/115 H 179/89 H 03/27/20 08:38 82 03/27/20 08:36 03/27/20 08:04 98.0 F 79 16 BP BP BP Pulse Ox 03/27/20 16:06 193/76 H 98 03/27/20 12:09 168/84 H 97 03/27/20 11:40 95 03/27/20 10:44 172/86 H 03/27/20 09:03 03/27/20 08:38 03/27/20 08:36 200/95 H 03/27/20 08:04 93 L Weight Admit Weight 272 lb 4.8 oz Weight 272 lb 4.8 oz - Physical Exam General: Alert, Oriented x3 Lungs: Clear to auscultation Cardiovascular: Regular rate Abdomen: Normal bowel sounds Neurological: Normal speech - Labs Result Diagrams: 03/27/20 04:37 03/27/20 04:37 Lab results: Laboratory Results - last 24 hr 03/27/20 04:37: WBC 5.5, RBC 2.98 L, Hgb 10.1 L, Hct 30.0 L, MCV 101.0 H, MCH 33.9 H, MCHC 33.7, RDW 13.4, Plt Count 131, MPV 8.9, Neutrophils % (Manual) 41 L, Band Neuts % (Manual) 2 L, Lymphocytes % (Manual) 35, Monocytes % (Manual) 18 H, Eosinophils % (Manual) 4, Lymphocytes # Not Reportable 03/27/20 04:37: Sodium 142, Potassium 3.2 L, Chloride 110 H, Carbon Dioxide 23, Anion Gap 12, BUN 26 H, Creatinine 0.88, Estimated GFR (MDRD) 62, Glucose 94, Calcium 8.2 Status: lab reviewed by me A/P - Problem (1) Dehydration Current Visit: Yes Code(s): E86.0 - DEHYDRATION Status: Acute (2) Malignant melanoma Current Visit: Yes Code(s): C43.9 - MALIGNANT MELANOMA OF SKIN, UNSPECIFIED Status: Acute - Plan Plan: 1. AMS resolved 2. HTN may be due to [facility] 3. continue PT, would benefit from Rehab. 4. Follow-up in office when recovered
[2020-03-27] MEDS: cloNIDine 0.1 MG TAB PO PRN (16:25)
[2020-03-27] MEDS: Atorvastatin Calcium 20 MG TAB PO SCH (22:59)
[2020-03-27] MEDS: Montelukast Sodium 10 mg Tablet PO SCH (23:00)
[2020-03-27] MEDS: Acetaminophen 500 MG TAB PO PRN (23:11)
[2020-03-28 09:16] LABS: Potassium 3.7 mmol/L (3.5-5.1)
[2020-03-28] MEDS: Famotidine 20 MG TAB PO SCH ×2 (09:31→21:32)
[2020-03-28] MEDS: Folic Acid 1 MG TAB PO SCH ×2 (09:31→21:32)
[2020-03-28] MEDS: Sodium Bicarbonate Tab 325 MG TAB PO SCH ×2 (09:31→21:31)
[2020-03-28] MEDS: Amlodipine 10 MG TAB PO SCH (09:32)
[2020-03-28] MEDS: Metoprolol Tartrate 25 MG TAB PO SCH ×2 (09:32→21:32)
[2020-03-28] MEDS: Docusate 100 MG CAP PO SCH ×2 (09:33→21:32)
[2020-03-28] MEDS: Scopolamine 1.5 mg/72 hour Patch TD SCH (12:50)
--- NOTE | 2020-03-28 16:16 | PDOC.HOSPP ---
- Subjective Subjective: Patient was seen examined at bedside. Her mental status much improved today. Patient alert oriented x4. Blood pressure slightly elevated, but overall has been much improved since her medication was adjusted. No acute events overnight. Her electrolytes have been corrected. - Objective Vital Signs & Weight: Vital Signs (12 hours) Temp Pulse Pulse Resp BP BP BP 03/28/20 15:37 97.9 F 72 16 155/65 H 03/28/20 11:20 97.2 F L 61 16 152/69 H 03/28/20 09:32 166/70 H 03/28/20 09:31 03/28/20 09:24 75 166/80 H 03/28/20 07:39 97.8 F 70 16 161/77 H Pulse Ox 03/28/20 15:37 93 L 03/28/20 11:20 96 03/28/20 09:32 03/28/20 09:31 95 03/28/20 09:24 03/28/20 07:39 95 Weight Admit Weight 272 lb 4.8 oz Weight 272 lb 4.8 oz I&O: 03/27/20 03/28/20 03/29/20 06:59 06:59 06:59 Intake Total 600 780 Output Total 425 600 Balance 175 180 Result Diagrams: 03/27/20 04:37 03/28/20 08:49 Radiology Reviewed by me: Yes EKG Reviewed by me: Yes Hospitalist ROS - Medication Medications: Active Medications Generic Name Dose Route Start Last Admin Trade Name Freq PRN Reason Stop Dose Admin Acetaminophen 1,000 mg 03/21/20 14:34 03/27/20 23:11 Acetaminophen 500 Mg Tab PO 1,000 mg Q6H PRN Administration Fever>101/(Mi/Mod/Sev) Pain Albuterol/Ipratropium 3 ml 03/24/20 13:58 03/27/20 11:40 Ipratropium/Albuterol Sulfate 3 Ml Neb NEB 3 ml [id number] PRN Administration SOB &/or Wheezing Amlodipine Besylate 10 mg 03/25/20 09:00 03/28/20 09:32 Amlodipine 10 Mg Tab PO 10 mg DAILY HANDY Administration Atorvastatin Calcium 20 mg 03/21/20 21:00 03/27/20 22:59 Atorvastatin Calcium 20 Mg Tab PO 20 mg HS HANDY Administration Clonidine 0.1 mg 03/27/20 13:59 03/27/20 16:25 Clonidine 0.1 Mg Tab PO 0.1 mg Q4H PRN Administration Hypertension SBP>160/DBP>90 Docusate Sodium 100 mg 03/21/20 21:00 03/28/20 09:33 Docusate 100 Mg Cap PO Not Given BID HANDY Enoxaparin Sodium 40 mg 03/22/20 09:00 03/24/20 19:50 Enoxaparin Sodium 40 Mg/0.4 Ml Syringe SC Not Given 09 HANDY Famotidine 20 mg 03/27/20 09:00 03/28/20 09:31 Famotidine 20 Mg Tab PO 20 mg Q12HR HANDY Administration Folic Acid 1 mg 03/21/20 21:00 03/28/20 09:31 Folic Acid 1 Mg Tab PO 1 mg BID HANDY Administration Hydralazine HCl 10 mg 03/25/20 07:36 03/26/20 04:10 Hydralazine 20 Mg/Ml Vial SLOW IVP 10 mg Q4H PRN Administration Persistent BP Elevations Metoprolol Tartrate 50 mg 03/27/20 21:00 03/28/20 09:32 Metoprolol Tartrate 25 Mg Tab PO 50 mg BID HANDY Administration Montelukast Sodium 10 mg 03/21/20 21:00 03/27/20 23:00 Montelukast Sodium 10 Mg Tablet PO 10 mg HS HANDY Administration Ondansetron HCl 4 mg 03/21/20 11:36 03/22/20 16:32 Ondansetron Pf 4 Mg/2 Ml Vial IVP 4 mg Q6H PRN Administration Nausea/Vomiting Quetiapine Fumarate 25 mg 03/25/20 09:00 03/28/20 09:32 Quetiapine Fumarate 25 Mg Tab PO 25 mg BID HANDY Administration Scopolamine 1.5 mg 03/22/20 12:00 03/28/20 12:50 Scopolamine 1.5 Mg/72 Hour Patch TD 1.5 mg Q3D HANDY Administration Sertraline HCl 100 mg 03/22/20 09:00 03/28/20 09:31 Sertraline Hcl 100 Mg Tab PO 100 mg QAM HANDY Administration Sodium Bicarbonate 650 mg 03/24/20 09:00 03/28/20 09:31 Sodium Bicarbonate Tab 325 Mg Tab PO 650 mg BID HANDY Administration Sodium Chloride 10 ml 03/21/20 21:00 03/28/20 10:07 Flush - Normal Saline 10 Ml Syringe IVF Not Given Q12HR HANDY - Exam General Appearance: NAD Eye: PERRL ENT: normocephalic atraumatic Neck: supple Heart: RRR Respiratory: CTAB Gastrointestinal: soft Extremities: no cyanosis Skin: normal turgor Neurological: cranial nerve grossly intact Musculoskeletal: normal tone Psychiatric: normal affect, normal behavior, A&O x 3 Hosp A/P - Plan 79 year female with history of malignant melanoma, started on chemotherapy about a week ago presented with high fever, lethargy and confusion Acute toxic encephalopathy - improved, likely d/t recent chemotherapy. Mental status returned to baseline --CT head negative. cont supportive cares. cont PT. --responded well with Seroquel --Rehab pending, [facility] Hypertensive urgency - BP improved --CT head negative. No hx of HTN. responded with IV labetalol. Add Norvasc/metoprolol for BP control Fever --likely d/t recent chemotherapy. Cultures no growth. Afebrile. COVID and other viral respiratory screening negative. CXR negative SIRS --non-infectious. Pt was initially admitted for presumed sepsis, ruled out. Likely drug related, oral chemotherapy YOSEPH - resolved --secondary to volume depletion, adjusted IVF, sodium bicarb to correct underlying metabolic acidosis Metabolic acidosis - resolved -mgt as above. Possible UTI --UA appears to be contaminated, otherwise not convincing. culture no growth. Ruled out. Malignant Melanoma --mgt as per oncology team, appreciate input Thrombocytopenia - improved --d/t chemotherapy. Hold Lovenox. Follow CBC Dyslipidemia --cont statin Code Status: Full DVT ppx: TEDS. Lovenox on hold d/t severe thrombocytopenia GI ppx: Pepcid Disposition: Home when medically stable.
[2020-03-28] MEDS: Atorvastatin Calcium 20 MG TAB PO SCH (21:32)
[2020-03-28] MEDS: Montelukast Sodium 10 mg Tablet PO SCH (21:32)
[2020-03-29] MEDS: Amlodipine 10 MG TAB PO SCH (09:12)
[2020-03-29] MEDS: Docusate 100 MG CAP PO SCH ×2 (09:13→21:49)
[2020-03-29] MEDS: Sodium Bicarbonate Tab 325 MG TAB PO SCH ×2 (09:13→21:48)
[2020-03-29] MEDS: Famotidine 20 MG TAB PO SCH ×2 (09:13→21:48)
[2020-03-29] MEDS: Folic Acid 1 MG TAB PO SCH ×2 (09:14→21:49)
[2020-03-29] MEDS: Metoprolol Tartrate 25 MG TAB PO SCH ×2 (09:14→21:49)
--- NOTE | 2020-03-29 14:53 | PDOC.HOSPP ---
- Subjective Subjective: Patient was seen examined at bedside. SPC is working with patient. Her mental status much improved this morning. No other acute events overnight. Pending rehab - Objective Vital Signs & Weight: Vital Signs (12 hours) Temp Pulse Resp BP BP BP BP 03/29/20 12:04 98.1 F 64 20 153/69 H 03/29/20 10:37 130/60 157/83 H 144/58 H 03/29/20 08:30 97.6 F 71 18 159/64 H 03/29/20 08:15 97.6 F 71 18 03/29/20 05:37 98.3 F 78 18 BP Pulse Ox 03/29/20 12:04 92 L 03/29/20 10:37 03/29/20 08:30 159/64 H 91 L 03/29/20 08:15 159/64 H 91 L 03/29/20 05:37 155/65 H 93 L Weight Admit Weight 272 lb 4.8 oz Weight 272 lb 4.8 oz I&O: 03/28/20 03/29/20 03/30/20 06:59 06:59 06:59 Intake Total 780 1000 120 Output Total 600 Balance 180 1000 120 Result Diagrams: 03/27/20 04:37 03/28/20 08:49 Radiology Reviewed by me: Yes EKG Reviewed by me: Yes Hospitalist ROS - Medication Medications: Active Medications Generic Name Dose Route Start Last Admin Trade Name Freq PRN Reason Stop Dose Admin Acetaminophen 1,000 mg 03/21/20 14:34 03/27/20 23:11 Acetaminophen 500 Mg Tab PO 1,000 mg Q6H PRN Administration Fever>101/(Mi/Mod/Sev) Pain Albuterol/Ipratropium 3 ml 03/24/20 13:58 03/27/20 11:40 Ipratropium/Albuterol Sulfate 3 Ml Neb NEB 3 ml [id number] PRN Administration SOB &/or Wheezing Amlodipine Besylate 10 mg 03/25/20 09:00 03/29/20 09:12 Amlodipine 10 Mg Tab PO 10 mg DAILY HANDY Administration Atorvastatin Calcium 20 mg 03/21/20 21:00 03/28/20 21:32 Atorvastatin Calcium 20 Mg Tab PO 20 mg HS HANDY Administration Clonidine 0.1 mg 03/27/20 13:59 03/27/20 16:25 Clonidine 0.1 Mg Tab PO 0.1 mg Q4H PRN Administration Hypertension SBP>160/DBP>90 Docusate Sodium 100 mg 03/21/20 21:00 03/29/20 09:13 Docusate 100 Mg Cap PO 100 mg BID HANDY Administration Enoxaparin Sodium 40 mg 03/22/20 09:00 03/24/20 19:50 Enoxaparin Sodium 40 Mg/0.4 Ml Syringe SC Not Given 09 HANDY Famotidine 20 mg 03/27/20 09:00 03/29/20 09:13 Famotidine 20 Mg Tab PO 20 mg Q12HR HANDY Administration Folic Acid 1 mg 03/21/20 21:00 03/29/20 09:14 Folic Acid 1 Mg Tab PO 1 mg BID HANDY Administration Hydralazine HCl 10 mg 03/25/20 07:36 03/26/20 04:10 Hydralazine 20 Mg/Ml Vial SLOW IVP 10 mg Q4H PRN Administration Persistent BP Elevations Metoprolol Tartrate 50 mg 03/27/20 21:00 03/29/20 09:14 Metoprolol Tartrate 25 Mg Tab PO 50 mg BID HANDY Administration Montelukast Sodium 10 mg 03/21/20 21:00 03/28/20 21:32 Montelukast Sodium 10 Mg Tablet PO 10 mg HS HANDY Administration Ondansetron HCl 4 mg 03/21/20 11:36 03/22/20 16:32 Ondansetron Pf 4 Mg/2 Ml Vial IVP 4 mg Q6H PRN Administration Nausea/Vomiting Quetiapine Fumarate 25 mg 03/25/20 09:00 03/29/20 09:13 Quetiapine Fumarate 25 Mg Tab PO 25 mg BID HANDY Administration Scopolamine 1.5 mg 03/22/20 12:00 03/28/20 12:50 Scopolamine 1.5 Mg/72 Hour Patch TD 1.5 mg Q3D HANDY Administration Sertraline HCl 100 mg 03/22/20 09:00 03/29/20 09:13 Sertraline Hcl 100 Mg Tab PO 100 mg QAM HANDY Administration Sodium Bicarbonate 650 mg 03/24/20 09:00 03/29/20 09:13 Sodium Bicarbonate Tab 325 Mg Tab PO 650 mg BID HANDY Administration Sodium Chloride 10 ml 03/21/20 21:00 03/29/20 09:14 Flush - Normal Saline 10 Ml Syringe IVF Not Given Q12HR HANDY - Exam General Appearance: NAD Eye: PERRL ENT: normocephalic atraumatic Neck: supple Heart: RRR, no murmur Respiratory: CTAB Gastrointestinal: soft, non-tender Extremities: no cyanosis Skin: normal turgor Neurological: cranial nerve grossly intact Musculoskeletal: normal tone Hosp A/P - Plan 79 year female with history of malignant melanoma, started on chemotherapy about a week ago presented with high fever, lethargy and confusion Acute toxic encephalopathy - improved, likely d/t recent chemotherapy. Mental status returned to baseline --CT head negative. cont supportive cares. cont PT. --responded well with Seroquel --Rehab pending, [facility] Hypertensive urgency - BP improved --CT head negative. No hx of HTN. responded with IV labetalol. Add Norvasc/metoprolol for BP control Fever-resolved --likely d/t recent chemotherapy. Cultures no growth. Afebrile. COVID and other viral respiratory screening negative. CXR negative SIRS --non-infectious. Pt was initially admitted for presumed sepsis, ruled out. Likely drug related, oral chemotherapy YOSEPH - resolved --secondary to volume depletion, adjusted IVF, sodium bicarb to correct underlying metabolic acidosis Metabolic acidosis - resolved -mgt as above. Possible UTI --UA appears to be contaminated, otherwise not convincing. culture no growth. Ruled out. Malignant Melanoma --mgt as per oncology team, appreciate input Thrombocytopenia - improved --d/t chemotherapy. Hold Lovenox. Follow CBC Dyslipidemia --cont statin Code Status: Full DVT ppx: TEDS. Lovenox on hold d/t severe thrombocytopenia GI ppx: Pepcid Disposition: Home when medically stable.
[2020-03-29] MEDS: Montelukast Sodium 10 mg Tablet PO SCH (21:49)
[2020-03-29] MEDS: Atorvastatin Calcium 20 MG TAB PO SCH (21:49)
[2020-03-30] MEDS: Amlodipine 10 MG TAB PO SCH (09:01)
[2020-03-30] MEDS: Docusate 100 MG CAP PO SCH ×2 (09:01→20:46)
[2020-03-30] MEDS: Sodium Bicarbonate Tab 325 MG TAB PO SCH ×2 (09:01→20:46)
[2020-03-30] MEDS: Metoprolol Tartrate 25 MG TAB PO SCH (09:02)
[2020-03-30] MEDS: Enoxaparin Sodium 40 MG/0.4 ML SYRINGE SC SCH (09:02)
[2020-03-30] MEDS: Folic Acid 1 MG TAB PO SCH ×2 (09:02→20:46)
[2020-03-30] MEDS: Famotidine 20 MG TAB PO SCH ×2 (09:02→20:46)
--- NOTE | 2020-03-30 14:21 | PDOC.HOSPP ---
- Subjective Subjective: She was seen examined at bedside. She was actually up and working with physical therapy. No acute events overnight. Blood pressure still is not fully controlled. Her mental status has returned to baseline. I was informed by case resource manager, she has been accepted to rehab, pending bed, expect to be available tomorrow. - Objective Vital Signs & Weight: Vital Signs (12 hours) Temp Pulse Resp BP BP BP BP 03/30/20 11:36 98.5 F 68 20 160/71 H 03/30/20 09:32 137/74 159/67 H 03/30/20 09:14 03/30/20 09:01 68 03/30/20 07:18 98.2 F 68 14 166/80 H 03/30/20 04:00 97.8 F 69 18 166/63 H Pulse Ox 03/30/20 11:36 96 03/30/20 09:32 03/30/20 09:14 97 03/30/20 09:01 03/30/20 07:18 92 L 03/30/20 04:00 92 L Weight Admit Weight 272 lb 4.8 oz Weight 272 lb 4.8 oz I&O: 03/29/20 03/30/20 03/31/20 06:59 06:59 06:59 Intake Total 1000 360 Output Total 600 Balance 1000 360 -600 Result Diagrams: 03/27/20 04:37 03/28/20 08:49 Radiology Reviewed by me: Yes Hospitalist ROS - Medication Medications: Active Medications Generic Name Dose Route Start Last Admin Trade Name Freq PRN Reason Stop Dose Admin Acetaminophen 1,000 mg 03/21/20 14:34 03/27/20 23:11 Acetaminophen 500 Mg Tab PO 1,000 mg Q6H PRN Administration Fever>101/(Mi/Mod/Sev) Pain Albuterol/Ipratropium 3 ml 03/24/20 13:58 03/27/20 11:40 Ipratropium/Albuterol Sulfate 3 Ml Neb NEB 3 ml [id number] PRN Administration SOB &/or Wheezing Amlodipine Besylate 10 mg 03/25/20 09:00 03/30/20 09:01 Amlodipine 10 Mg Tab PO 10 mg DAILY HANDY Administration Atorvastatin Calcium 20 mg 03/21/20 21:00 03/29/20 21:49 Atorvastatin Calcium 20 Mg Tab PO 20 mg HS HANDY Administration Clonidine 0.1 mg 03/27/20 13:59 03/27/20 16:25 Clonidine 0.1 Mg Tab PO 0.1 mg Q4H PRN Administration Hypertension SBP>160/DBP>90 Docusate Sodium 100 mg 03/21/20 21:00 03/30/20 09:01 Docusate 100 Mg Cap PO 100 mg BID HANDY Administration Enoxaparin Sodium 40 mg 03/22/20 09:00 03/30/20 09:02 Enoxaparin Sodium 40 Mg/0.4 Ml Syringe SC 40 mg 0900 HANDY Administration Famotidine 20 mg 03/27/20 09:00 03/30/20 09:02 Famotidine 20 Mg Tab PO 20 mg Q12HR HANDY Administration Folic Acid 1 mg 03/21/20 21:00 03/30/20 09:02 Folic Acid 1 Mg Tab PO 1 mg BID HANDY Administration Hydralazine HCl 10 mg 03/25/20 07:36 03/26/20 04:10 Hydralazine 20 Mg/Ml Vial SLOW IVP 10 mg Q4H PRN Administration Persistent BP Elevations Metoprolol Tartrate 50 mg 03/27/20 21:00 03/30/20 09:02 Metoprolol Tartrate 25 Mg Tab PO 50 mg BID HANDY Administration Montelukast Sodium 10 mg 03/21/20 21:00 03/29/20 21:49 Montelukast Sodium 10 Mg Tablet PO 10 mg HS HANDY Administration Ondansetron HCl 4 mg 03/21/20 11:36 03/22/20 16:32 Ondansetron Pf 4 Mg/2 Ml Vial IVP 4 mg Q6H PRN Administration Nausea/Vomiting Quetiapine Fumarate 25 mg 03/25/20 09:00 03/30/20 09:02 Quetiapine Fumarate 25 Mg Tab PO 25 mg BID HANDY Administration Scopolamine 1.5 mg 03/22/20 12:00 03/28/20 12:50 Scopolamine 1.5 Mg/72 Hour Patch TD 1.5 mg Q3D HANDY Administration Sertraline HCl 100 mg 03/22/20 09:00 03/30/20 09:02 Sertraline Hcl 100 Mg Tab PO 100 mg QAM HANDY Administration Sodium Bicarbonate 650 mg 03/24/20 09:00 03/30/20 09:01 Sodium Bicarbonate Tab 325 Mg Tab PO 650 mg BID HANDY Administration Sodium Chloride 10 ml 03/21/20 21:00 03/30/20 09:04 Flush - Normal Saline 10 Ml Syringe IVF 10 ml Q12HR HANDY Administration - Exam General Appearance: NAD Eye: PERRL ENT: normocephalic atraumatic Neck: supple Heart: RRR, no murmur Respiratory: CTAB Gastrointestinal: soft, non-tender Extremities: no cyanosis Skin: normal turgor Neurological: cranial nerve grossly intact Musculoskeletal: normal tone Psychiatric: normal affect, normal behavior, A&O x 3 Hosp A/P - Plan 79 year female with history of malignant melanoma, started on chemotherapy about a week ago presented with high fever, lethargy and confusion Acute toxic encephalopathy - improved, likely d/t recent chemotherapy. Mental status returned to baseline --CT head negative. cont supportive cares. cont PT. --responded well with Seroquel --accepted to [facility], bed available tomorrow per CM Hypertensive urgency --CT head negative. No prior hx of HTN. responded with IV labetalol. --Started Norvasc/metoprolol for BP control Fever-resolved --likely d/t recent chemotherapy. Cultures no growth. Afebrile. COVID and other viral respiratory screening negative. CXR negative SIRS --non-infectious etiology. Pt was initially admitted for presumed sepsis, ruled out. Likely drug related, oral chemotherapy YOSEPH - resolved --secondary to volume depletion, adjusted IVF, sodium bicarb to correct under lying metabolic acidosis Metabolic acidosis - resolved -mgt as above. Possible UTI --UA appears to be contaminated, otherwise not convincing. culture no growth. Ruled out. Malignant Melanoma --mgt as per oncology team, appreciate input. D/w oncology team Ok to transfer when bed available; otherwise, follow up as outpatient. Thrombocytopenia - resolved --d/t chemotherapy. Dyslipidemia --cont statin Code Status: Full DVT ppx: TEDS GI ppx: Pepcid Disposition: [facility], anticipated bed avail on 03/31
[2020-03-30] MEDS: Lisinopril 20 MG TAB PO SCH (20:45)
[2020-03-30] MEDS: Montelukast Sodium 10 mg Tablet PO SCH (20:46)
[2020-03-30] MEDS: Atorvastatin Calcium 20 MG TAB PO SCH (20:46)
[2020-03-31 05:59] LABS: Anion Gap 12 mmol/L (10-20); BUN (Urea Nitrogen) 11 mg/dL (9.8-20.1); Calc. Creatinine Clearance 117 mL/min (70-130); Carbon Dioxide 25 mmol/L (23-31); Chloride 105 mmol/L (98-107); Estimated GFR-MDRD 73; Glucose 106 mg/dL (83-110); Magnesium 1.6 mg/dL (1.6-2.6); Potassium 3.4 mmol/L (3.5-5.1); Sodium 139 mmol/L (136-145)
[2020-03-31 06:20] LABS: Band 7 % (5-11); Eosinophils 2 % (0-10); Hemoglobin 11.1 g/dL (12.0-16.0); Lymphocytes 25 % (21-51); MDiff Complete? YES; Mean Corpuscular HGB CONC 34.1 g/dL (32.0-36.0); Mean Corpuscular Hemoglobin 34.4 pg (27.0-31.0); Mean Platelet Volume 8.1 fL (7.4-10.4); Monocytes 5 % (0-10); Neutrophil 61 % (42-75); Platelet Count 194 thou/uL (130-400); RBC Distribution Width 13.3 % (11.5-14.5); Red Blood Cell (RBC) Count 3.22 mill/uL (4.20-5.40); White Blood Cell (WBC) Count 6.5 thou/uL (4.8-10.8)
[2020-03-31] MEDS: Sodium Bicarbonate Tab 325 MG TAB PO SCH ×2 (09:10→20:33)
[2020-03-31] MEDS: Enoxaparin Sodium 40 MG/0.4 ML SYRINGE SC SCH (09:10)
[2020-03-31] MEDS: Amlodipine 10 MG TAB PO SCH (09:11)
[2020-03-31] MEDS: Docusate 100 MG CAP PO SCH ×2 (09:11→20:32)
[2020-03-31] MEDS: Lisinopril 20 MG TAB PO SCH ×2 (09:11→20:33)
[2020-03-31] MEDS: Famotidine 20 MG TAB PO SCH ×2 (09:11→20:34)
[2020-03-31] MEDS: Folic Acid 1 MG TAB PO SCH ×2 (09:11→20:33)
--- NOTE | 2020-03-31 11:58 | PDOC.HOSPP ---
- Subjective Encounter Date: 03/31/20 Encounter Time: 09:30 Subjective: Patient looks quite ill no acute events noted overnight. Blood pressure is elevated. - Objective Vital Signs & Weight: Vital Signs (12 hours) Temp Pulse Resp BP BP Pulse Ox 03/31/20 08:00 97.5 F L 75 12 160/82 H 96 03/31/20 03:58 98.2 F 73 16 151/60 H 92 L Weight Admit Weight 272 lb 4.8 oz Weight 272 lb 4.8 oz I&O: 03/30/20 03/31/20 04/01/20 06:59 06:59 06:59 Intake Total 360 240 Output Total 1300 1000 Balance 360 -1060 -1000 Result Diagrams: 03/31/20 05:04 03/31/20 05:04 Hospitalist ROS - Medication Medications: Active Medications Generic Name Dose Route Start Last Admin Trade Name Freq PRN Reason Stop Dose Admin Acetaminophen 1,000 mg 03/21/20 14:34 03/27/20 23:11 Acetaminophen 500 Mg Tab PO 1,000 mg Q6H PRN Administration Fever>101/(Mi/Mod/Sev) Pain Albuterol/Ipratropium 3 ml 03/24/20 13:58 03/27/20 11:40 Ipratropium/Albuterol Sulfate 3 Ml Neb NEB 3 ml [id number] PRN Administration SOB &/or Wheezing Amlodipine Besylate 10 mg 03/25/20 09:00 03/31/20 09:11 Amlodipine 10 Mg Tab PO 10 mg DAILY HANDY Administration Atorvastatin Calcium 20 mg 03/21/20 21:00 03/30/20 20:46 Atorvastatin Calcium 20 Mg Tab PO 20 mg HS HANDY Administration Clonidine 0.1 mg 03/27/20 13:59 03/27/20 16:25 Clonidine 0.1 Mg Tab PO 0.1 mg Q4H PRN Administration Hypertension SBP>160/DBP>90 Docusate Sodium 100 mg 03/21/20 21:00 03/31/20 09:11 Docusate 100 Mg Cap PO 100 mg BID HANDY Administration Enoxaparin Sodium 40 mg 03/22/20 09:00 03/31/20 09:10 Enoxaparin Sodium 40 Mg/0.4 Ml Syringe SC 40 mg 0900 HANDY Administration Famotidine 20 mg 03/27/20 09:00 03/31/20 09:11 Famotidine 20 Mg Tab PO 20 mg Q12HR HANDY Administration Folic Acid 1 mg 03/21/20 21:00 03/31/20 09:11 Folic Acid 1 Mg Tab PO 1 mg BID HANDY Administration Hydralazine HCl 10 mg 03/25/20 07:36 03/26/20 04:10 Hydralazine 20 Mg/Ml Vial SLOW IVP 10 mg Q4H PRN Administration Persistent BP Elevations Lisinopril 20 mg 03/30/20 21:00 03/31/20 09:11 Lisinopril 20 Mg Tab PO 20 mg BID HANDY Administration Montelukast Sodium 10 mg 03/21/20 21:00 03/30/20 20:46 Montelukast Sodium 10 Mg Tablet PO 10 mg HS HANDY Administration Ondansetron HCl 4 mg 03/21/20 11:36 03/22/20 16:32 Ondansetron Pf 4 Mg/2 Ml Vial IVP 4 mg Q6H PRN Administration Nausea/Vomiting Scopolamine 1.5 mg 03/22/20 12:00 03/28/20 12:50 Scopolamine 1.5 Mg/72 Hour Patch TD 1.5 mg Q3D HANDY Administration Sertraline HCl 100 mg 03/22/20 09:00 03/31/20 09:11 Sertraline Hcl 100 Mg Tab PO 100 mg QAM HANDY Administration Sodium Bicarbonate 650 mg 03/24/20 09:00 03/31/20 09:10 Sodium Bicarbonate Tab 325 Mg Tab PO 650 mg BID HANDY Administration Sodium Chloride 10 ml 03/21/20 21:00 03/31/20 09:15 Flush - Normal Saline 10 Ml Syringe IVF Not Given Q12HR HANDY - Exam General Appearance: awake alert, ill appearing Eye: PERRL, anicteric sclera ENT: normocephalic atraumatic Neck: supple Heart: RRR Respiratory: CTAB Gastrointestinal: soft, normal bowel sounds Neurological: no focal deficits Psychiatric: oriented to person Hosp A/P - Plan Acute toxic encephalopathy - improved, likely d/t recent chemotherapy. Mental status returned to baseline --CT head negative. --responded well with Seroquel Hypertensive urgency --CT head negative. No prior hx of HTN. responded with IV labetalol. --Started hydralazine and metoprolol for BP control -Off Norvasc as blood pressure not adequately controlled. Fever-resolved --likely d/t recent chemotherapy. Cultures no growth. Afebrile. COVID and other viral respiratory screening negative. CXR negative SIRS --non-infectious etiology. Pt was initially admitted for presumed sepsis, ruled out. Likely drug related, oral chemotherapy YOSEPH - resolved --secondary to volume depletion, adjusted IVF, sodium bicarb to correct underlying metabolic acidosis Metabolic acidosis - resolved -mgt as above. Asymptomatic bacteriuria --UA appears to be contaminated, UTI ruled out Malignant Melanoma --mgt as per oncology team, appreciate input. D/w oncology team Ok to transfer when bed available; otherwise, follow up as outpatient. Thrombocytopenia - resolved --d/t chemotherapy. Dyslipidemia --cont statin Code Status: Full DVT ppx: TEDS GI ppx: Pepcid Blood pressure needs to have better control Disposition: [facility] when able
[2020-03-31] MEDS: Scopolamine 1.5 mg/72 hour Patch TD SCH (12:47)
[2020-03-31] MEDS: hydrALAZINE 25 MG TAB PO SCH ×2 (15:35→20:32)
--- NOTE | 2020-03-31 19:38 | CON ---
DATE OF CONSULTATION: REASON FOR CONSULTATION: Pauses. PRIMARY BOXING INSPECTOR: None. HISTORY OF PRESENT ILLNESS: Ms. Mayfield is a very pleasant 79-year-old woman, who has been diagnosed with malignant melanoma. She is currently on chemo. She states she has had increased fatigue noted. She has had presyncope with no syncope noted. No dizziness or lightheadedness. She presented to the emergency room with the above. She was found to have significant pauses up to 4.5 seconds. The patient has been in the hospital over the last week due to toxic encephalopathy in addition to hypertensive urgency. She also had seizure, fever, but overall culture negative. PAST MEDICAL HISTORY: 1. Stage IIIC malignant melanoma. 2. Rheumatoid arthritis. 3. Depression. 4. Joint replacement. PAST SURGICAL HISTORY: 1. Melanoma resection. 2. Hip replacement. 3. Lumbar nerve stimulator. 4. Knee surgery. ALLERGIES: CODEINE, KEFLEX. MEDICATIONS: Include; 1. Zocor. 2. Folic acid. 3. Zoloft. 4. Plaquenil. 5. . SOCIAL HISTORY: No current tobacco or alcohol use. REVIEW OF SYSTEMS: A 10-point review of systems is reviewed as above, otherwise negative. PHYSICAL EXAMINATION: VITAL SIGNS: Blood pressure 182/70, pulse 72, temperature 97.7. GENERAL: Patient is a pleasant female, who is in no acute distress. The patient appears their stated age. NEUROLOGIC: The patient is alert and oriented x3 with no focal neurologic deficits. HEENT: Sclerae without icterus. Mouth has moist mucous membranes with normal pallor. NECK: No JVD. Carotid upstroke brisk. No bruits bilaterally. LUNGS: Clear to auscultation with unlabored respirations. BACK: No scoliosis or kyphosis. CARDIAC: Regular rate and rhythm with normal S1 and S2. No S3 or S4 noted. No significant rubs, murmurs, thrills, or gallops noted throughout the precordium. PMI is not displaced. There is no parasternal heave. ABDOMEN: Soft, nontender, nondistended. No peritoneal signs present. No hepatosplenomegaly. No abnormal striae. EXTREMITIES: 2+ femoral and 2+ dorsalis pedis pulses. No cyanosis, clubbing, or edema. SKIN: No gross abnormalities. PERTINENT LABORATORY DATA: Hemoglobin 11.1, white blood cell count 6.5, platelet count 194. Creatinine 0.77, potassium 3.7. IMPRESSION: 1. Significant pauses. 2. Presyncope. 3. Renal insufficiency, now resolved. 4. Hypertensive urgency. RECOMMENDATIONS: Ms. Mayfield's symptoms may be related to underlying pauses. Her telemetry monitoring appears to be consistent with ventricular standstill. At this point, the patient will likely benefit from pacemaker implantation. symptomatic, but her pauses occur during the day. She had a 3.5-second pause noted at 02:30 in the afternoon. I recommend echo with doppler to assess her LVEF. Plan on pacemaker on Thursday. Job ID: [id number]
[2020-03-31] MEDS: Atorvastatin Calcium 20 MG TAB PO SCH (20:33)
[2020-03-31] MEDS: Montelukast Sodium 10 mg Tablet PO SCH (20:33)
[2020-03-31] MEDS: Acetaminophen 500 MG TAB PO PRN (20:34)
[2020-04-01] MEDS: Famotidine 20 MG TAB PO SCH ×2 (08:08→21:11)
[2020-04-01] MEDS: Sodium Bicarbonate Tab 325 MG TAB PO SCH ×2 (08:08→21:12)
[2020-04-01] MEDS: hydrALAZINE 25 MG TAB PO SCH ×3 (08:09→21:11)
[2020-04-01] MEDS: Docusate 100 MG CAP PO SCH ×2 (08:09→21:11)
[2020-04-01] MEDS: Lisinopril 20 MG TAB PO SCH ×2 (08:09→21:11)
[2020-04-01] MEDS: Enoxaparin Sodium 40 MG/0.4 ML SYRINGE SC SCH (08:09)
[2020-04-01] MEDS: Folic Acid 1 MG TAB PO SCH ×2 (08:09→21:12)
--- NOTE | 2020-04-01 12:44 | PDOC.HOSPP ---
- Subjective Encounter Date: 04/01/20 Encounter Time: 09:10 Subjective: She just completed her physical therapy. She is able to ambulate the restroom. She felt light headed and dizzy. Plan is to place pacemaker likely tomorrow. - Objective Vital Signs & Weight: Vital Signs (12 hours) Temp Pulse Resp BP BP Pulse Ox 04/01/20 11:49 97.8 F 80 15 135/75 95 04/01/20 08:00 95 04/01/20 07:33 97.5 F L 73 16 151/75 H 95 04/01/20 04:00 97.8 F 76 16 140/62 94 L Weight Admit Weight 272 lb 4.8 oz Weight 272 lb 4.8 oz I&O: 03/31/20 04/01/20 04/02/20 06:59 06:59 06:59 Intake Total 240 118 Output Total 1300 7083 [id number] Balance -1060 -2512 -1335 Result Diagrams: 03/31/20 05:04 03/31/20 05:04 Hospitalist ROS - Medication Medications: Active Medications Generic Name Dose Route Start Last Admin Trade Name Freq PRN Reason Stop Dose Admin Acetaminophen 1,000 mg 03/21/20 14:34 03/31/20 20:34 Acetaminophen 500 Mg Tab PO 1,000 mg Q6H PRN Administration Fever>101/(Mi/Mod/Sev) Pain Albuterol/Ipratropium 3 ml 03/24/20 13:58 03/27/20 11:40 Ipratropium/Albuterol Sulfate 3 Ml Neb NEB 3 ml [id number] PRN Administration SOB &/or Wheezing Atorvastatin Calcium 20 mg 03/21/20 21:00 03/31/20 20:33 Atorvastatin Calcium 20 Mg Tab PO 20 mg HS HANDY Administration Clonidine 0.1 mg 03/27/20 13:59 03/27/20 16:25 Clonidine 0.1 Mg Tab PO 0.1 mg Q4H PRN Administration Hypertension SBP>160/DBP>90 Docusate Sodium 100 mg 03/21/20 21:00 04/01/20 08:09 Docusate 100 Mg Cap PO 100 mg BID HANDY Administration Enoxaparin Sodium 40 mg 03/22/20 09:00 04/01/20 08:09 Enoxaparin Sodium 40 Mg/0.4 Ml Syringe SC 40 mg 0900 HANDY Administration Famotidine 20 mg 03/27/20 09:00 04/01/20 08:08 Famotidine 20 Mg Tab PO 20 mg Q12HR HANDY Administration Folic Acid 1 mg 03/21/20 21:00 04/01/20 08:09 Folic Acid 1 Mg Tab PO 1 mg BID HANDY Administration Hydralazine HCl 10 mg 03/25/20 07:36 03/26/20 04:10 Hydralazine 20 Mg/Ml Vial SLOW IVP 10 mg Q4H PRN Administration Persistent BP Elevations Hydralazine HCl 25 mg 03/31/20 15:00 04/01/20 08:09 Hydralazine 25 Mg Tab PO 25 mg TID HANDY Administration Lisinopril 20 mg 03/30/20 21:00 04/01/20 08:09 Lisinopril 20 Mg Tab PO 20 mg BID HANDY Administration Montelukast Sodium 10 mg 03/21/20 21:00 03/31/20 20:33 Montelukast Sodium 10 Mg Tablet PO 10 mg HS HANDY Administration Ondansetron HCl 4 mg 03/21/20 11:36 03/22/20 16:32 Ondansetron Pf 4 Mg/2 Ml Vial IVP 4 mg Q6H PRN Administration Nausea/Vomiting Scopolamine 1.5 mg 03/22/20 12:00 03/31/20 12:47 Scopolamine 1.5 Mg/72 Hour Patch TD 1.5 mg Q3D HANDY Administration Sertraline HCl 100 mg 03/22/20 09:00 04/01/20 08:09 Sertraline Hcl 100 Mg Tab PO 100 mg QAM HANDY Administration Sodium Bicarbonate 650 mg 03/24/20 09:00 04/01/20 08:08 Sodium Bicarbonate Tab 325 Mg Tab PO 650 mg BID HANDY Administration Sodium Chloride 10 ml 03/21/20 21:00 04/01/20 08:10 Flush - Normal Saline 10 Ml Syringe IVF Not Given Q12HR HANDY - Exam General Appearance: NAD, awake alert Eye: PERRL ENT: normocephalic atraumatic Neck: supple Heart: RRR Respiratory: CTAB, normal chest expansion Gastrointestinal: soft, normal bowel sounds Neurological: cranial nerve grossly intact, no focal deficits Psychiatric: A&O x 3 Hosp A/P - Plan Acute toxic encephalopathy - improved, likely d/t recent chemotherapy. Mental status returned to baseline --CT head negative. --responded well with Seroquel Hypertensive urgency --CT head negative. No prior hx of HTN. responded with IV labetalol. --Started hydralazine and metoprolol for BP control Fever-resolved --likely d/t recent chemotherapy. Cultures no growth. Afebrile. COVID and other viral respiratory screening negative. CXR negative SIRS --non-infectious etiology. Pt was initially admitted for presumed sepsis, ruled out. Likely drug related, oral chemotherapy YOSEPH - resolved --secondary to volume depletion, adjusted IVF, sodium bicarb to correct underlying metabolic acidosis Metabolic acidosis - resolved -mgt as above. Asymptomatic bacteriuria --UA appears to be contaminated, UTI ruled out Malignant Melanoma --mgt as per oncology team, appreciate input. D/w oncology team Ok to transfer when bed available; otherwise, follow up as outpatient. Thrombocytopenia - resolved --d/t chemotherapy. Dyslipidemia --cont statin Code Status: Full DVT ppx: TEDS GI ppx: Pepcid Blood pressure needs to have better control sinus pauses--- off BB About 3 events of 4.9, 3.8 and 3.0 sinus passages. She was sleeping at that time. There is also a concern for AV blocks. echo is pending Patient is symptomatic with lightheaded this morning after physical therapy. Plan for pacemaker implantation tomorrow will keep her n.p.o. midnight.
--- NOTE | 2020-04-01 13:12 | PDOC.CPN ---
- Subjective Date: 04/01/20 Time: 12:45 Interval history: No overnight events. Patient without complaints. Rhythm stable. - Review of Systems General: denies: fever/chills, weight/appetite/sleep changes, night sweats, fatigue Respiratory: denies: cough, congestion, shortness of breath, exercise intolerance Cardiovascular: denies: chest pain, palpitation, edema, paroxysmal nocturnal dyspnea, orthopnea Gastrointestinal: denies: nausea, vomiting, diarrhea, constipation, abd pain, GI bleeding Musculoskeletal: denies: pain, tenderness, stiffness, swelling, arthritis/arthralgias Neurological: denies: numbness, syncope, seizure, weakness - Objective Allergies/Adverse Reactions: Allergies Allergy/AdvReac Type Severity Reaction Status Date / Time iodine Allergy Severe Anaphylaxis Verified 03/21/20 13:33 Sulfa (Sulfonamide Allergy Severe Anaphylaxis Verified 03/21/20 13:33 Antibiotics) aspirin Allergy Intermediate Hives Verified 03/21/20 13:33 cephalexin [From Keflex] Allergy Intermediate Hives Verified 03/21/20 13:33 codeine [Codeine] AdvReac Severe Nausea Verified 03/21/20 13:33 hydrocodone [Hydrocodone] AdvReac Severe Nausea Verified 03/21/20 13:33 CLAM Allergy Severe Anaphylaxis Uncoded 03/21/20 13:33 SURGICAL GLUE Allergy SEVERE Uncoded 01/03/20 13:05 ITCHING, BLISTERING, SWELLING Visit Medications: Current Medications Acetaminophen (Acetaminophen 500 Mg Tab) 1,000 mg PO Q6H PRN PRN Reason: Fever>101/(Mi/Mod/Sev) Pain Last Admin: 03/31/20 20:34 Dose: 1,000 mg Documented by: Albuterol/Ipratropium (Ipratropium/Albuterol Sulfate 3 Ml Neb) 3 ml NEB [id number] PRN PRN Reason: SOB &/or Wheezing Last Admin: 03/27/20 11:40 Dose: 3 ml Documented by: Atorvastatin Calcium (Atorvastatin Calcium 20 Mg Tab) 20 mg PO HS HANDY Last Admin: 03/31/20 20:33 Dose: 20 mg Documented by: Clonidine (Clonidine 0.1 Mg Tab) 0.1 mg PO Q4H PRN PRN Reason: Hypertension SBP>160/DBP>90 Last Admin: 03/27/20 16:25 Dose: 0.1 mg Documented by: Docusate Sodium (Docusate 100 Mg Cap) 100 mg PO BID [facility] Last Admin: 04/01/20 08:09 Dose: 100 mg Documented by: Enoxaparin Sodium (Enoxaparin Sodium 40 Mg/0.4 Ml Syringe) 40 mg SC 0900 [facility] Last Admin: 04/01/20 08:09 Dose: 40 mg Documented by: Famotidine (Famotidine 20 Mg Tab) 20 mg PO Q12HR [facility] Last Admin: 04/01/20 08:08 Dose: 20 mg Documented by: Folic Acid (Folic Acid 1 Mg Tab) 1 mg PO BID [facility] Last Admin: 04/01/20 08:09 Dose: 1 mg Documented by: Hydralazine HCl (Hydralazine 20 Mg/Ml Vial) 10 mg SLOW IVP Q4H PRN PRN Reason: Persistent BP Elevations Last Admin: 03/26/20 04:10 Dose: 10 mg Documented by: Hydralazine HCl (Hydralazine 25 Mg Tab) 25 mg PO TID [facility] Last Admin: 04/01/20 08:09 Dose: 25 mg Documented by: Lisinopril (Lisinopril 20 Mg Tab) 20 mg PO BID [facility] Last Admin: 04/01/20 08:09 Dose: 20 mg Documented by: Montelukast Sodium (Montelukast Sodium 10 Mg Tablet) 10 mg PO HS [facility] Last Admin: 03/31/20 20:33 Dose: 10 mg Documented by: Ondansetron HCl (Ondansetron Pf 4 Mg/2 Ml Vial) 4 mg IVP Q6H PRN PRN Reason: Nausea/Vomiting Last Admin: 03/22/20 16:32 Dose: 4 mg Documented by: Polyethylene Glycol (Polyethylene Glycol 3350 17 Gm Packet) 17 gm PO DAILY PRN PRN Reason: Constipation Scopolamine (Scopolamine 1.5 Mg/72 Hour Patch) 1.5 mg TD Q3D [facility] Last Admin: 03/31/20 12:47 Dose: 1.5 mg Documented by: Senna/Docusate Sodium (Senokot S 8.6-50 Mg Tab) 2 tab PO BID PRN PRN Reason: Constipation Sertraline HCl (Sertraline Hcl 100 Mg Tab) 100 mg PO QAM [facility] Last Admin: 04/01/20 08:09 Dose: 100 mg Documented by: Sodium Bicarbonate (Sodium Bicarbonate Tab 325 Mg Tab) 650 mg PO BID [facility] Last Admin: 04/01/20 08:08 Dose: 650 mg Documented by: Sodium Chloride (Flush - Normal Saline 10 Ml Syringe) 10 ml IVF Q12HR [facility] Last Admin: 04/01/20 08:10 Dose: Not Given Documented by: Sodium Chloride (Flush - Normal Saline 10 Ml Syringe) 10 ml IVF PRN PRN PRN Reason: Saline Flush Vital Signs & Weight: Vital Signs Temp Pulse Pulse Pulse Resp BP BP 04/01/20 11:49 97.8 F 80 15 04/01/20 10:36 90 87 107/63 109/62 04/01/20 08:00 04/01/20 07:33 97.5 F L 73 16 04/01/20 04:00 97.8 F 76 16 BP BP Pulse Ox 04/01/20 11:49 135/75 95 04/01/20 10:36 04/01/20 08:00 95 04/01/20 07:33 151/75 H 95 04/01/20 04:00 140/62 94 L Admit Weight 272 lb 4.8 oz Weight 272 lb 4.8 oz - Physical Exam General: alert & oriented x3, appears well, no apparent distress HEENT: mucus membranes moist Neck: supple neck Cardiac: regular rate and rhythm Lungs: clear to auscultation Neuro: grossly intact Abdomen: soft, non-tender Extremities: no cyanosis, no clubbing Skin: clear - Labs Result Diagrams: 03/31/20 05:04 03/31/20 05:04 Troponin/CKMB Troponin I 0.028 ng/mL (< 0.028) 03/21/20 08:54 - Assessment/Plan Assessment/Plan: 1. Hx AMS 2. Hx syncope/fall in past 3. Ventricular standstill with pause >4 seconds 4. Melanoma Patient remains stable. Discussed pacemaker placement including risks/benefits and she is agreeable. Needs MRI compatible device given CA history. Will plan for tomorrow.
[2020-04-01] MEDS: cloNIDine 0.1 MG TAB PO PRN (21:11)
[2020-04-01] MEDS: Atorvastatin Calcium 20 MG TAB PO SCH (21:12)
[2020-04-01] MEDS: Montelukast Sodium 10 mg Tablet PO SCH (21:12)
[2020-04-02] MEDS ORDERED: Lidocaine 1% (PF) 30 ML VIAL ONE ×2 (06:39→07:51)
[2020-04-02] MEDS ORDERED: Gentamicin 80 MG/2 ML VIAL ONE (06:42)
[2020-04-02] MEDS ORDERED: CEFAZOLIN 1 GM VIAL ONE (06:42)
[2020-04-02] MEDS ORDERED: Midazolam HCl 2 mg/2 ml Vial ONE (07:37)
[2020-04-02] MEDS ORDERED: HYDROcodone/Acetaminophen 5/325 mg Tablet PO PRN (08:55)
[2020-04-02] MEDS ORDERED: Iopamidol 370 76% 50 ML VIAL FS ONE ×2 (08:59→15:07)
[2020-04-02] MEDS ORDERED: Potassium Citrate 10 MEQ TAB PO SCH (09:15)
[2020-04-02] MEDS: Lisinopril 20 MG TAB PO SCH ×2 (09:32→20:50)
[2020-04-02] MEDS: hydrALAZINE 25 MG TAB PO SCH ×3 (09:32→20:51)
[2020-04-02] MEDS: Famotidine 20 MG TAB PO SCH ×2 (09:32→20:50)
[2020-04-02] MEDS: Docusate 100 MG CAP PO SCH ×2 (10:56→20:50)
[2020-04-02] MEDS: Sodium Bicarbonate Tab 325 MG TAB PO SCH ×2 (10:56→20:50)
[2020-04-02] MEDS: Folic Acid 1 MG TAB PO SCH ×2 (10:56→20:53)
[2020-04-02] MEDS: Acetaminophen 500 MG TAB PO PRN (11:05)
--- NOTE | 2020-04-02 11:57 | RAD ---
Chest AP view INDICATION: Post cardiac device placement COMPARISON: March 25, 2020 FINDINGS: Lungs: Stable chronic lung changes Cardiac silhouette: Heart size is normal. There are vascular consultation involving the aortic arch. There is a new dual-lead pacemaker overlying left chest wall. The leads appear intact. Pulmonary vasculature: Normal Pleural spaces: No pleural effusion or pneumothorax is demonstrated. Upper abdomen: No abnormality seen. Osseous structures: No acute osseous abnormality. Additional findings: Stable dorsal column stimulator IMPRESSION: Postoperative chest.. No pneumothorax.
[2020-04-02] MEDS: Enoxaparin Sodium 40 MG/0.4 ML SYRINGE SC SCH (12:02)
--- NOTE | 2020-04-02 12:17 | PDOC.HOSPP ---
- Subjective Encounter Date: 04/02/20 Encounter Time: 10:30 Subjective: Patient had a pacemaker placed. Postprocedure she is doing well. Her blood pressure was elevated couple of readings but almost normal now With a systolic around 130. Daughter At bedside. - Objective Vital Signs & Weight: Vital Signs (12 hours) Temp Pulse Resp BP BP Pulse Ox 04/02/20 11:16 97.9 F 74 16 134/78 95 04/02/20 10:53 151/64 H 04/02/20 09:32 71 171/76 H 04/02/20 08:58 98.0 F 78 14 168/86 H 98 04/02/20 05:52 97.5 F L 78 18 129/68 93 L Weight Admit Weight 272 lb 4.8 oz Weight 272 lb 4.8 oz I&O: 04/01/20 04/02/20 04/03/20 06:59 06:59 06:59 Intake Total 118 952 480 Output Total 2000 1335 937 Balance -2512 -383 -280 Result Diagrams: 03/31/20 05:04 03/31/20 05:04 Hospitalist ROS - Medication Medications: Active Medications Generic Name Dose Route Start Last Admin Trade Name Freq PRN Reason Stop Dose Admin Acetaminophen 1,000 mg 03/21/20 14:34 04/02/20 11:05 Acetaminophen 500 Mg Tab PO 1,000 mg Q6H PRN Administration Fever>101/(Mi/Mod/Sev) Pain Albuterol/Ipratropium 3 ml 03/24/20 13:58 03/27/20 11:40 Ipratropium/Albuterol Sulfate 3 Ml Neb NEB 3 ml [id number] PRN Administration SOB &/or Wheezing Atorvastatin Calcium 20 mg 03/21/20 21:00 04/01/20 21:12 Atorvastatin Calcium 20 Mg Tab PO 20 mg HS HANDY Administration Clonidine 0.1 mg 03/27/20 13:59 04/01/20 21:11 Clonidine 0.1 Mg Tab PO 0.1 mg Q4H PRN Administration Hypertension SBP>160/DBP>90 Docusate Sodium 100 mg 03/21/20 21:00 04/02/20 10:56 Docusate 100 Mg Cap PO 100 mg BID HANDY Administration Enoxaparin Sodium 40 mg 03/22/20 09:00 11/16/20 12:02 Enoxaparin Sodium 40 Mg/0.4 Ml Syringe SC Not Given 0900 HANDY Famotidine 20 mg 03/27/20 09:00 04/02/20 09:32 Famotidine 20 Mg Tab PO 20 mg Q12HR HANDY Administration Folic Acid 1 mg 03/21/20 21:00 04/02/20 10:56 Folic Acid 1 Mg Tab PO 1 mg BID HANDY Administration Hydralazine HCl 10 mg 03/25/20 07:36 03/26/20 04:10 Hydralazine 20 Mg/Ml Vial SLOW IVP 10 mg Q4H PRN Administration Persistent BP Elevations Hydralazine HCl 25 mg 03/31/20 15:00 04/02/20 09:32 Hydralazine 25 Mg Tab PO 25 mg TID HANDY Administration Lisinopril 20 mg 03/30/20 21:00 04/02/20 09:32 Lisinopril 20 Mg Tab PO 20 mg BID HANDY Administration Montelukast Sodium 10 mg 03/21/20 21:00 04/01/20 21:12 Montelukast Sodium 10 Mg Tablet PO 10 mg HS HANDY Administration Ondansetron HCl 4 mg 03/21/20 11:36 03/22/20 16:32 Ondansetron Pf 4 Mg/2 Ml Vial IVP 4 mg Q6H PRN Administration Nausea/Vomiting Potassium Citrate 40 meq 04/02/20 09:15 04/02/20 10:55 Potassium Citrate 10 Meq Tab PO 04/02/20 14:00 40 meq NOW HANDY Administration Scopolamine 1.5 mg 03/22/20 12:00 03/31/20 12:47 Scopolamine 1.5 Mg/72 Hour Patch TD 1.5 mg Q3D HANDY Administration Sertraline HCl 100 mg 03/22/20 09:00 04/02/20 10:56 Sertraline Hcl 100 Mg Tab PO 100 mg QAM HANDY Administration Sodium Bicarbonate 650 mg 03/24/20 09:00 04/02/20 10:56 Sodium Bicarbonate Tab 325 Mg Tab PO 650 mg BID HANDY Administration Sodium Chloride 10 ml 04/02/20 09:00 04/02/20 10:57 Flush - Normal Saline 10 Ml Syringe IVF 10 ml Q12HR HANDY Administration - Exam General Appearance: NAD, awake alert General - other findings: Pacer placement left chest Eye: PERRL ENT: normocephalic atraumatic Neck: supple Heart: RRR Respiratory: CTAB Gastrointestinal: soft, normal bowel sounds Neurological: no focal deficits Psychiatric: A&O x 3 Hosp A/P - Plan Acute toxic encephalopathy - improved, likely d/t recent chemotherapy. Mental status returned to baseline --CT head negative. --responded well with Seroquel Hypertensive urgency --CT head negative. No prior hx of HTN. responded with IV labetalol. --Started hydralazine and metoprolol for BP control Fever-resolved --likely d/t recent chemotherapy. Cultures no growth. Afebrile. COVID and other viral respiratory screening negative. CXR negative SIRS --non-infectious etiology. Pt was initially admitted for presumed sepsis, ruled out. Likely drug related, oral chemotherapy YOSEPH - resolved --secondary to volume depletion, adjusted IVF, sodium bicarb to correct underlying metabolic acidosis Metabolic acidosis - resolved -mgt as above. Asymptomatic bacteriuria --UA appears to be contaminated, UTI ruled out Malignant Melanoma --mgt as per oncology team, appreciate input. D/w oncology team Ok to transfer when bed available; otherwise, follow up as outpatient. Thrombocytopenia - resolved --d/t chemotherapy. Dyslipidemia --cont statin Code Status: Full DVT ppx: TEDS GI ppx: Pepcid Blood pressure needs to have better control sinus pauses--- off BB About 3 events of 4.9, 3.8 and 3.0 sinus passages. She was sleeping at that time. There is also a concern for AV blocks. echo is pending Patient is symptomatic with lightheaded this morning after physical therapy. Plan for pacemaker implantation tomorrow will keep her n.p.o. midnight. 16th Status post pacemaker placement. Blood pressure is little elevated postprocedure but improving. Will continue with hydralazine and lisinopril Possible discharge tomorrow after pacer being checked again and EP/cardiology clearance.
[2020-04-02] MEDS: Ondansetron PF 4 MG/2 ML Vial IVP PRN (12:45)
[2020-04-02] MEDS ORDERED: traMADol HCl 50 MG TAB PO PRN (13:38)
[2020-04-02] MEDS: Atorvastatin Calcium 20 MG TAB PO SCH (20:50)
[2020-04-02] MEDS: Montelukast Sodium 10 mg Tablet PO SCH (20:50)
[2020-04-03] MEDS ORDERED: Potassium Citrate 10 MEQ TAB PO SCH (09:00)
--- NOTE | 2020-04-03 09:16 | PRG ---
DATE OF SERVICE: 04/03/2020 SUBJECTIVE: Ms. Mayfield is doing well. She does have some soreness overlying the pacer pocket. OBJECTIVE: VITAL SIGNS: Blood pressure LUNGS: Clear to auscultation. HEART: Regular rate and rhythm. ABDOMEN: Soft, nontender, nondistended. EXTREMITIES: No edema. IMPRESSION: 1. Symptomatic sinus pauses. 2. Status post pacemaker. RECOMMENDATIONS: Plan is to follow up with Ms. Mayfield as an outpatient. . Plan is to follow up in 1 week. All questions were answered. Job ID: [id number]
[2020-04-03] MEDS: Sodium Bicarbonate Tab 325 MG TAB PO SCH ×2 (09:45→22:32)
[2020-04-03] MEDS: Famotidine 20 MG TAB PO SCH ×2 (09:45→22:32)
[2020-04-03] MEDS: Docusate 100 MG CAP PO SCH ×2 (09:45→22:33)
[2020-04-03] MEDS: Enoxaparin Sodium 40 MG/0.4 ML SYRINGE SC SCH (09:45)
[2020-04-03] MEDS: Lisinopril 20 MG TAB PO SCH ×2 (09:45→22:32)
[2020-04-03] MEDS: Folic Acid 1 MG TAB PO SCH ×2 (09:45→22:32)
[2020-04-03] MEDS: hydrALAZINE 25 MG TAB PO SCH ×3 (09:45→22:33)
[2020-04-03] MEDS: Scopolamine 1.5 mg/72 hour Patch TD SCH (11:45)
--- NOTE | 2020-04-03 13:27 | PDOC.HOSPP ---
- Subjective Encounter Date: 04/03/20 Encounter Time: 09:10 Subjective: She did ambulate. [place] quite dizzy and lightheadedness. She feels better now. - Objective Vital Signs & Weight: Vital Signs (12 hours) Temp Pulse Pulse Pulse Resp BP BP 04/03/20 11:36 97.9 F 72 20 04/03/20 09:09 88 93 139/71 103/68 04/03/20 08:19 04/03/20 07:31 97.9 F 73 20 04/03/20 05:17 97.4 F L 72 18 BP BP Pulse Ox 04/03/20 11:36 153/61 H 96 04/03/20 09:09 04/03/20 08:19 97 04/03/20 07:31 129/53 L 97 04/03/20 05:17 131/74 95 Weight Admit Weight 272 lb 4.8 oz Weight 272 lb 4.8 oz I&O: 04/02/20 04/03/20 04/04/20 06:59 06:59 06:59 Intake Total 952 840 Output Total 1335 1060 250 Balance -383 -220 -250 Result Diagrams: 03/31/20 05:04 03/31/20 05:04 Hospitalist ROS - Medication Medications: Active Medications Generic Name Dose Route Start Last Admin Trade Name Freq PRN Reason Stop Dose Admin Acetaminophen 1,000 mg 03/21/20 14:34 04/02/20 11:05 Acetaminophen 500 Mg Tab PO 1,000 mg Q6H PRN Administration Fever>101/(Mi/Mod/Sev) Pain Albuterol/Ipratropium 3 ml 03/24/20 13:58 03/27/20 11:40 Ipratropium/Albuterol Sulfate 3 Ml Neb NEB 3 ml [id number] PRN Administration SOB &/or Wheezing Atorvastatin Calcium 20 mg 03/21/20 21:00 04/02/20 20:50 Atorvastatin Calcium 20 Mg Tab PO 20 mg HS HANDY Administration Clonidine 0.1 mg 03/27/20 13:59 04/01/20 21:11 Clonidine 0.1 Mg Tab PO 0.1 mg Q4H PRN Administration Hypertension SBP>160/DBP>90 Docusate Sodium 100 mg 03/21/20 21:00 04/03/20 09:45 Docusate 100 Mg Cap PO 100 mg BID HANDY Administration Enoxaparin Sodium 40 mg 03/22/20 09:00 04/03/20 09:45 Enoxaparin Sodium 40 Mg/0.4 Ml Syringe SC 40 mg 0900 HANDY Administration Famotidine 20 mg 03/27/20 09:00 04/03/20 09:45 Famotidine 20 Mg Tab PO 20 mg Q12HR HANDY Administration Folic Acid 1 mg 03/21/20 21:00 04/03/20 09:45 Folic Acid 1 Mg Tab PO 1 mg BID HANDY Administration Hydralazine HCl 10 mg 03/25/20 07:36 03/26/20 04:10 Hydralazine 20 Mg/Ml Vial SLOW IVP 10 mg Q4H PRN Administration Persistent BP Elevations Hydralazine HCl 25 mg 03/31/20 15:00 04/03/20 09:45 Hydralazine 25 Mg Tab PO 25 mg TID HANDY Administration Lisinopril 20 mg 03/30/20 21:00 04/03/20 09:45 Lisinopril 20 Mg Tab PO 20 mg BID HANDY Administration Montelukast Sodium 10 mg 03/21/20 21:00 04/02/20 20:50 Montelukast Sodium 10 Mg Tablet PO 10 mg HS HANDY Administration Ondansetron HCl 4 mg 03/21/20 11:36 04/02/20 12:45 Ondansetron Pf 4 Mg/2 Ml Vial IVP 4 mg Q6H PRN Administration Nausea/Vomiting Scopolamine 1.5 mg 03/22/20 12:00 04/03/20 11:45 Scopolamine 1.5 Mg/72 Hour Patch TD 1.5 mg Q3D HANDY Administration Sertraline HCl 100 mg 03/22/20 09:00 04/03/20 09:45 Sertraline Hcl 100 Mg Tab PO 100 mg QAM HANDY Administration Sodium Bicarbonate 650 mg 03/24/20 09:00 04/03/20 09:45 Sodium Bicarbonate Tab 325 Mg Tab PO 650 mg BID HANDY Administration Sodium Chloride 10 ml 04/02/20 09:00 04/03/20 09:44 Flush - Normal Saline 10 Ml Syringe IVF 10 ml Q12HR HANDY Administration Tramadol HCl 50 mg 04/02/20 13:38 04/02/20 20:51 Tramadol Hcl 50 Mg Tab PO 50 mg Q6H PRN Administration Moderate Pain (4-6) - Exam General Appearance: NAD, awake alert Eye: PERRL ENT: normocephalic atraumatic Neck: supple Heart: RRR Respiratory: CTAB, normal chest expansion Gastrointestinal: soft, normal bowel sounds Neurological: no focal deficits Psychiatric: A&O x 3 Hosp A/P - Plan Acute toxic encephalopathy - improved, likely d/t recent chemotherapy. Mental status returned to baseline --CT head negative. --responded well with Seroquel Hypertensive urgency --CT head negative. No prior hx of HTN. responded with IV labetalol. --Started hydralazine and metoprolol for BP control Fever-resolved --likely d/t recent chemotherapy. Cultures no growth. Afebrile. COVID and other viral respiratory screening negative. CXR negative SIRS --non-infectious etiology. Pt was initially admitted for presumed sepsis, ruled out. Likely drug related, oral chemotherapy YOSEPH - resolved --secondary to volume depletion, adjusted IVF, sodium bicarb to correct underlying metabolic acidosis Metabolic acidosis - resolved -mgt as above. Asymptomatic bacteriuria --UA appears to be contaminated, UTI ruled out Malignant Melanoma --mgt as per oncology team, appreciate input. D/w oncology team Ok to transfer when bed available; otherwise, follow up as outpatient. Thrombocytopenia - resolved --d/t chemotherapy. Dyslipidemia --cont statin Code Status: Full DVT ppx: TEDS GI ppx: Pepcid Blood pressure needs to have better control sinus pauses--- off BB About 3 events of 4.9, 3.8 and 3.0 sinus passages. She was sleeping at that time. There is also a concern for AV blocks. echo is pending Status post pacemaker placement. Blood pressure is little elevated postprocedure but improving. Will continue with hydralazine and lisinopril Possible discharge tomorrow after pacer being checked again and EP/cardiology clearance. 17th Patient would benefit with rehab. Physical therapy involved. We will request the spring encaser to follow with rehab placement.
--- NOTE | 2020-04-03 16:09 | CCLSPC ---
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 She was advised to undergo pacemaker insertion. She was taken to cardiac laborer driver where it was performed today without difficulties or complications. She was implanted with a [employer] Advisa dual-chamber pacemaker, which is MRI compatible. Two screw-in affix leads were placed, one in the atrium and one in the ventricle. No complications or difficulties were encountered. She was given IV injection of contrast for visualization of the left subclavian vein. Pacemaker was set with the upper rate of 130, lower rate was set at 60. No difficulties or complications were encountered. Job ID: [id number]
[2020-04-03] MEDS: Montelukast Sodium 10 mg Tablet PO SCH (22:32)
[2020-04-03] MEDS: Atorvastatin Calcium 20 MG TAB PO SCH (22:32)
--- NOTE | 2020-04-04 06:59 | EKG ---
Test Reason : Blood Pressure : / mmHG Vent. Rate : 078 BPM Atrial Rate : 078 BPM P-R Int : 170 ms QRS Dur : 088 ms QT Int : 380 ms P-R-T Axes : 043 014 061 degrees QTc Int : 433 ms Normal sinus rhythm Normal ECG When compared with ECG of 21-MAR-2020 08:48, No significant change was found Confirmed by JOSE HO MD ([id number]) on 04/04/2020 6:59:05 AM Referred By: ALEXA Confirmed By:JOSE OH MD
[2020-04-04] MEDS: Sodium Bicarbonate Tab 325 MG TAB PO SCH (08:55)
[2020-04-04] MEDS: Docusate 100 MG CAP PO SCH (08:55)
[2020-04-04] MEDS: Famotidine 20 MG TAB PO SCH (08:55)
[2020-04-04] MEDS: hydrALAZINE 25 MG TAB PO SCH ×2 (08:55→14:28)
[2020-04-04] MEDS: Enoxaparin Sodium 40 MG/0.4 ML SYRINGE SC SCH (08:55)
[2020-04-04] MEDS: Folic Acid 1 MG TAB PO SCH (08:55)
[2020-04-04] MEDS: Lisinopril 20 MG TAB PO SCH (08:55)
[2020-04-04 11:12] LABS: Mean Corpuscular HGB CONC 33.2 g/dL (32.0-36.0); Mean Corpuscular Hemoglobin 33.5 pg (27.0-31.0); Mean Platelet Volume 9.2 fL (7.4-10.4); Platelet Count 148 thou/uL (130-400); RBC Distribution Width 13.4 % (11.5-14.5); Red Blood Cell (RBC) Count 3.57 mill/uL (4.20-5.40); White Blood Cell (WBC) Count 3.8 thou/uL (4.8-10.8)
[2020-04-04 11:19] LABS: Anion Gap 14 mmol/L (10-20); BUN (Urea Nitrogen) 13 mg/dL (9.8-20.1); Calc. Creatinine Clearance 109 mL/min (70-130); Carbon Dioxide 26 mmol/L (23-31); Chloride 102 mmol/L (98-107); Estimated GFR-MDRD 66; Glucose 97 mg/dL (83-110); Potassium 3.9 mmol/L (3.5-5.1); Sodium 138 mmol/L (136-145)
[2020-04-04 11:29] VITALS: TEMP 98.1
[2020-04-04 11:57] LABS: Band 3 % (5-11); Eosinophils 2 % (0-10); Lymphocytes 28 % (21-51); MDiff Complete? YES; Monocytes 16 % (0-10); Neutrophil 50 % (42-75); RBC Morphology Normal
[2020-04-04 12:00] VITALS: BP 140/78
--- NOTE | 2020-04-04 14:16 | PDOC.DS.DS ---
Provider - Provider Date of Admission: 03/21/20 11:40 Admitting Provider: Daniela Lopez MD Primary Care Physician: Jesse Redding MD Course - Hospital Course Hospital Course: 79-year-old female presented with Acute toxic encephalopathy - improved, likely d/t recent chemotherapy. Mental status returned to baseline --CT head negative. --responded well with Seroquel Hypertensive urgency --CT head negative. No prior hx of HTN. responded with IV labetalol. --Started hydralazine and metoprolol for BP control--controlled adequately Fever-resolved --likely d/t recent chemotherapy. Cultures no growth. Afebrile. COVID and other viral respiratory screening negative. CXR negative SIRS --non-infectious etiology. Pt was initially admitted for presumed sepsis, ruled out. Likely drug related, oral chemotherapy YOSEPH - resolved --secondary to volume depletion, adjusted IVF, sodium bicarb to correct underlying metabolic acidosis Metabolic acidosis - resolved -mgt as above. Asymptomatic bacteriuria --UA appears to be contaminated, UTI ruled out Malignant Melanoma -- follow up as outpatient. Thrombocytopenia - resolved --d/t chemotherapy. Dyslipidemia --cont statin sinus pauses--- off BB About 3 events of 4.9, 3.8 and 3.0 sinus passages. She was sleeping at that time. There is also a concern for AV blocks. Status post pacemaker placement. Arranging for home health with physical therapy and discharged today to home. Discharge time over 30 minutes. Resuscitation Status: 03/21/20 11:36 Resuscitation Status Routine Resuscitation Status: FULL: Full Resuscitation - Labs Lab Results: 04/04/20 10:22 04/04/20 10:22 Abnormal Lab Results - Last 48 hrs 04/04/20 10:22: WBC 3.8 L, RBC 3.57 L, MCV 101.0 H, MCH 33.5 H, Band Neuts % (Manual) 3 L, Monocytes % (Manual) 16 H Microbiology - Entire Visit 03/21/20 09:19 Venous blood - Left Hand Blood Culture - Final NO GROWTH IN 5 DAYS 03/21/20 09:26 Venous blood - Right Hand Blood Culture - Final NO GROWTH IN 5 DAYS 03/21/20 09:52 Urine Straight Catheter Urine Culture - Final NO GROWTH AT 48 HOURS 03/22/20 12:00 Stool C. difficile GDH Antigen & Toxins - Final 03/21/20 12:55 Nasopharyngeal swab Respiratory Virus Panel (PCR) - Final 03/21/20 10:10 Nasal swab Influenza Types A,B Direct EIA - Final - Physical Exam Vitals: Vital Signs (12 hours) Temp Pulse Pulse Resp BP BP Pulse Ox 04/04/20 11:26 98.1 F 80 16 143/79 H 95 04/04/20 10:44 69 140/78 04/04/20 08:00 95 04/04/20 07:43 97.6 F 80 16 154/76 H 95 04/04/20 04:00 97.8 F 84 12 111/56 L 95 Weight Admit Weight 272 lb 4.8 oz Weight 272 lb 4.8 oz Physical Exam: The patient was seen and examined on the day of discharge. Patient preferred to go home after planning for rehab. She states that she has been here for a long time and she has been to the inpatient rehab at least 3 times. Arranging for home health with physical therapy and discharged today to home. Plan - Discharge Medications Home Medications: Medication Instructions Recorded Confirmed Type Cholecalciferol (Vitamin D3) 5,000 unit PO BID 10/29/12 03/21/20 History [Vitamin D3] Folic Acid [Folvite] 1 mg PO BID 10/29/12 03/21/20 History Multivitamin [Multivitamins] 1 cap PO DAILY 10/29/12 03/21/20 History Simvastatin [Zocor] 40 mg PO HS 10/29/12 03/21/20 History Hydroxychloroquine Sulfate 100 mg PO BID-WM 12/15/13 03/21/20 History [Plaquenil] Fluticasone Propionate [Flonase 1 spray EA NARE DAILY 05/27/17 03/21/20 History Nasal [place]] Cetirizine HCl [Zyrtec] 10 mg PO DAILY 06/04/17 03/21/20 History Sertraline HCl 100 mg PO QAM 04/01/19 03/21/20 History Biotin 5,000 mcg PO DAILY 01/03/20 03/21/20 History Montelukast Sodium [Singulair] 10 mg PO HS 01/14/20 03/21/20 History traMADol HCl [Ultram] 50 mg PO Q6H PRN tab 01/16/20 03/21/20 Rx Acetaminophen [Tylenol Regular 650 mg PO Q6HR PRN 03/21/20 03/21/20 History Strength] Dabrafenib Mesylate [Tafinlar] 75 mg PO BID 03/21/20 03/21/20 History Omeprazole 40 mg PO DAILY 03/21/20 03/21/20 History Polyethylene Glycol 3350 [Miralax] 17 gm PO DAILY PRN 03/21/20 03/21/20 History Sennosides/Docusate Sodium 2 tab PO BID PRN 03/21/20 03/21/20 History [Senokot S] Trametinib Dimethyl Sulfoxide 2 mg PO DAILY 03/21/20 03/21/20 History [Mekinist] Allergies: iodine Allergy (Severe, Verified 03/21/20 13:33) Anaphylaxis Sulfa (Sulfonamide Antibiotics) Allergy (Severe, Verified 03/21/20 13:33) Anaphylaxis aspirin Allergy (Intermediate, Verified 03/21/20 13:33) Hives cephalexin [From Keflex] Allergy (Intermediate, Verified 03/21/20 13:33) Hives codeine [Codeine] Adverse Reaction (Severe, Verified 03/21/20 13:33) Nausea hydrocodone [Hydrocodone] Adverse Reaction (Severe, Verified 03/21/20 13:33) Nausea CLAM Allergy (Severe, Uncoded 03/21/20 13:33) Anaphylaxis SURGICAL GLUE Allergy (Uncoded 01/03/20 13:05) SEVERE ITCHING, BLISTERING, SWELLING - Discharge Instructions Discharge Instructions:: [facility] [address] Guardado in 1 to 2 wks Activity:: Activity as Tolerated Nourishment:: Heart Healthy Diet - Follow up Plan Referrals: Cardiac Rehab - [place] [Outside] - 7 Days (Your doctor has ordered outpatient cardiac rehab for you to begin within 1-2 weeks after you go home from the hospital. The location nearest to you is the [facility]. We will f/u with you before discharge from Inpatient Rehabiliation Facility. If not, please reach out to us at [phone] and request an appointment.) Jesse Redding MD [Primary Care Provider] - Disposition: HOME HEALTH Quality - Care Measures CORE MEASURES:: N/A
[2020-04-04] MEDS: Acetaminophen 500 MG TAB PO PRN (14:28)
== END 2020-04-04 15:20 | disposition home health service (06) | DRG 853 ==
LOC: ERS 08:22 → ONC 11:40 → 2SE 03-25 18:30
PROVIDERS: ADMIT Internal Medicine; ATTEND Internal Medicine
PROC: 0JH606Z Insertion of Pacemaker, Dual Chamber into Chest Subcutaneous Tissue and Fascia, Open Approach (ICD-10-PCS; principal; 2020-04-02)
PROC: 02H63JZ Insertion of Pacemaker Lead into Right Atrium, Percutaneous Approach (ICD-10-PCS; 2020-04-02)
PROC: 02HK3JZ Insertion of Pacemaker Lead into Right Ventricle, Percutaneous Approach (ICD-10-PCS; 2020-04-02)
DX: R50.2 Drug induced fever (principal); G92 Toxic encephalopathy; R65.10 Systemic inflammatory response syndrome (SIRS) of non-infectious origin without acute organ dysfunction; N17.9 Acute kidney failure, unspecified; E87.2 Acidosis; I44.2 Atrioventricular block, complete; Z20.828 Contact with and (suspected) exposure to other viral communicable diseases; T45.1X5A Adverse effect of antineoplastic and immunosuppressive drugs, initial encounter; M06.9 Rheumatoid arthritis, unspecified; F32.9 Major depressive disorder, single episode, unspecified; M48.00 Spinal stenosis, site unspecified; E86.0 Dehydration; C43.59 Malignant melanoma of other part of trunk; Z96.649 Presence of unspecified artificial hip joint; I16.0 Hypertensive urgency; E78.5 Hyperlipidemia, unspecified; I10 Essential (primary) hypertension; G47.33 Obstructive sleep apnea (adult) (pediatric); R82.71 Bacteriuria; R00.1 Bradycardia, unspecified; D69.59 Other secondary thrombocytopenia; E86.9 Volume depletion, unspecified; Z90.49 Acquired absence of other specified parts of digestive tract; Z90.710 Acquired absence of both cervix and uterus; Z79.899 Other long term (current) drug therapy; Z88.2 Allergy status to sulfonamides; Z88.8 Allergy status to other drugs, medicaments and biological substances; Z88.6 Allergy status to analgesic agent; Z88.1 Allergy status to other antibiotic agents; Z91.041 Radiographic dye allergy status; Z87.891 Personal history of nicotine dependence
CPT/HCPCS: 33208; 36005; 36415; 51701; 70450; 71045; 75820; 80048; 80053; 81003; 81015; 83735; 84132; 84443; 84484; 85025; 86140; 87040; 87086; 87324; 87449; 87633; 87804; 93005; 93010; 94640; 94760; 96365; 96367; 96375; 97139; 99152; 99153; C1785; C1898; J0360; J0690; J0692; J1580; J1650; J1885; J2001; J2250; J2405; J3370; J3480; J7030; J7050; J7620; Q9967; S0028; U0002

== ENCOUNTER 2020-04-06 13:26 | Emergency (ER) | payer MEDICARE ==
--- NOTE | 2020-04-06 14:38 | RAD ---
Exam: Chest one view HISTORY:Generalized weakness. Comparison: 04/02/2020 FINDINGS: Cardiac silhouette: Normal Aorta: Unremarkable Pulmonary vessels: Normal Costophrenic angles: Clear LUNGS: No masses or consolidation. Pneumothorax: None Osseous abnormalities: None Additional findings: Stable dorsal column stimulator left-sided transvenous pacemaker. IMPRESSION: No acute cardiopulmonary process.
[2020-04-06 14:40] LABS: Hemoglobin 10.8 g/dL (12.0-16.0); Mean Corpuscular HGB CONC 32.9 g/dL (32.0-36.0); Mean Corpuscular Hemoglobin 32.8 pg (27.0-31.0); Mean Corpuscular Volume 99.9 fL (78.0-98.0); Mean Platelet Volume 8.3 fL (7.4-10.4); Platelet Count 139 thou/uL (130-400); White Blood Cell (WBC) Count 2.3 thou/uL (4.8-10.8)
[2020-04-06 14:50] LABS: ALT (SGPT) 10 U/L (8-55); AST (SGOT) 21 U/L (5-34); Albumin 3.6 g/dL (3.4-4.8); Alkaline Phosphatase 89 U/L (40-110); Anion Gap 17 mmol/L (10-20); BUN (Urea Nitrogen) 9 mg/dL (9.8-20.1); Bilirubin, Total 0.6 mg/dL (0.2-1.2); Calc. Creatinine Clearance 0 mL/min (70-130); Calcium 9.3 mg/dL (7.8-10.44); Carbon Dioxide 22 mmol/L (23-31); Chloride 103 mmol/L (98-107); Estimated GFR-MDRD 68; Globulin 2.9 g/dL (2.4-3.5); Glucose 97 mg/dL (83-110); Potassium 3.3 mmol/L (3.5-5.1); Protein, Total 6.5 g/dL (6.0-8.3); Sodium 139 mmol/L (136-145)
[2020-04-06 15:10] LABS: Band 4 % (5-11); Lymphocytes 21 % (21-51); MDiff Complete? YES; Monocytes 30 % (0-10); Neutrophil 45 % (42-75); Platelet Morphology Comment Appears Adequate; RBC Morphology Normal
[2020-04-06] MEDS ORDERED: methylPREDNISolone Sod Succ 40 MG VIAL ONE (15:57)
[2020-04-06] MEDS ORDERED: Famotidine/PF 20 mg/2ml Vial ONE (15:57)
[2020-04-06] MEDS ORDERED: diphenhydrAMINE 50 MG/ML VIAL ONE (15:57)
[2020-04-06 17:06] LABS: Bacteria/HPF None Seen HPF (None Seen); Bilirubin Negative (Negative); Blood, Urine 2+ (Negative); Clarity Turbid (Clear); Glucose, Urine (Dipstick) Normal (Negative); Ketone, Urine 40 mg/dL (Negative); Leukocyte 250 Leu/uL (Negative); Nitrite Negative (Negative); Protein, Urine (Dipstick) 50 mg/dL (Neg-Trace); RBC/HPF 0-3 HPF (0-3); Squamous Epithelial 21-50 HPF (0-3); pH, Urine 6.5 (5.0-9.0)
--- NOTE | 2020-04-06 17:29 | CT ---
CT angiogram chest with IV contrast and 3-D imaging HISTORY: Weakness. Elevated d-dimer. Fatigue. COMPARISON: 03/01/2020. FINDINGS: The central pulmonary arteries and thoracic aorta are well opacified with normal branching of the great vessels at the aortic arch. Peripheral pulmonary arteries incompletely evaluated due to motion artifact. No filling defects are evident. Azygous vein remains distended. There is mild dependent atelectasis involving each lung. No lobar con solidation. Dual lead left subclavian cardiac electronic device in place without evidence of complication. No pne umothorax. Within the partially visualized upper abdomen, dorsal column stimulator leads are seen within the michael tral spinal canal. Cyst at the posterior cortex of the right kidney measures up to 4.6 cm. IMPRESSION : No CT evidence of pulmonary embolus. Chronic-type findings are stable. No acute abnormalities are demonstrated.
[2020-04-06 19:45] LABS: SARS-CoV-2 NAA Rapid Test Not Detected (NotDetected)
== END 2020-04-06 21:07 ==
LOC: ERS 13:26
DX: D64.9 Anemia, unspecified (principal); N39.0 Urinary tract infection, site not specified; D72.819 Decreased white blood cell count, unspecified; Z20.828 Contact with and (suspected) exposure to other viral communicable diseases; F32.9 Major depressive disorder, single episode, unspecified; Z85.820 Personal history of malignant melanoma of skin; Z79.899 Other long term (current) drug therapy
CPT/HCPCS: 71045; 71275; 80053; 84484; 85025; 85379; 93005; 94760; 96365; 96375; 99285; U0002; 36415; 81003; 81015; J1200; J1956; J2920; S0028

== ENCOUNTER 2020-09-28 12:32 | Outpatient (CLI) | payer MEDICARE | END 2020-09-28 12:33 | disposition home or self-care (01) | LOC: BICMAMMO 12:32 | PROVIDERS: ATTEND Family Medicine | DX: Z12.31 Encounter for screening mammogram for malignant neoplasm of breast (principal); Z85.820 Personal history of malignant melanoma of skin | CPT/HCPCS: 77063; 77067 ==

== ENCOUNTER 2021-01-01 14:42 | Outpatient (CLI) | payer MEDICARE | END 2021-01-01 14:43 | disposition home or self-care (01) | LOC: BICMAMMO 14:42 | PROVIDERS: ATTEND Internal Medicine Rheumatology | DX: M81.0 Age-related osteoporosis without current pathological fracture (principal) | CPT/HCPCS: 77080 ==

== ENCOUNTER → 2021-01-03 | Day surgery (SDC) | payer MEDICARE ==
[2021-01-02 15:57] VITALS: BMI 39.4
[~2021-01-03] MED LIST changes: -Dexamethasone 20 MG/5 ML VIAL ONE; +Lidocaine 1% PF 5 ML VIAL ONE; -Ondansetron PF 4 MG/2 ML Vial ONE; -PROPOFOL 200 MG/20 ML VIAL ONE; +Sodium Bicarbonate 2.5 MEQ/5 ML VIAL ONE
[2021-01-03 13:31] VITALS: BP 155/92
== END ==
LOC: ULT 12:49
PROVIDERS: ATTEND Plastic Surgery
PROC: 0XB Anatomical Regions, Upper Extremities, Excision (ICD-10-PCS; principal; 2021-01-03)
DX: C43.59 Malignant melanoma of other part of trunk (principal); C79.89 Secondary malignant neoplasm of other specified sites; Z79.899 Other long term (current) drug therapy; Z88.1 Allergy status to other antibiotic agents; Z88.2 Allergy status to sulfonamides; Z88.5 Allergy status to narcotic agent; Z88.6 Allergy status to analgesic agent; Z91.013 Allergy to seafood; Z91.041 Radiographic dye allergy status; Z91.048 Other nonmedicinal substance allergy status
CPT/HCPCS: 19083; 88305; 88313; 88341; 88342

== ENCOUNTER 2021-02-05 14:45 | Outpatient (CLI) | payer MEDICARE ==
[2021-02-05 17:13] LABS: #Eosinphils 0.1 10x3/uL (0.0-0.5); #Monocytes 0.6 10x3/uL (0.0-1.1); #Neutrophils 2.7 10x3/uL (1.5-8.4); %Basophils 0.8 % (0.0-2.0); %Eosinophils 2.1 % (0.0-6.0); %Lymphocytes 28.6 % (18.0-47.0); %Neutrophils 56.3 % (40.0-75.0); Hemoglobin 12.2 g/dL (12.0-15.5); Mean Corpuscular HGB CONC 33.8 g/dL (32.0-36.0); Mean Corpuscular Hemoglobin 33.1 pg (27.0-33.0); Mean Corpuscular Volume 97.8 fl (81.6-98.3); Platelet Count 145 10x3/uL (150-450); RBC Distribution Width 12.6 % (11.5-14.5); Red Blood Cell (RBC) Count 3.69 10x6/uL (3.90-5.03); White Blood Cell (WBC) Count 4.8 10x3/uL (3.5-10.5)
[2021-02-06 08:06] LABS: SARS-CoV-2 PCR by NAA Not Detected (NotDetected)
== END 2021-02-05 14:46 | disposition home or self-care (01) ==
LOC: LABBT 14:45
PROVIDERS: ATTEND Surgery
DX: Z01.818 Encounter for other preprocedural examination (principal); Z20.822 Contact with and (suspected) exposure to COVID-19
CPT/HCPCS: 71046; 85025; 93005; U0003; U0005; 93010

== ENCOUNTER 2021-02-08 08:34 | Day surgery (SDC) | payer MEDICARE ==
[2021-02-07 14:50] VITALS: BMI 39.5
[2021-02-08] MEDS ORDERED: Acetaminophen 500 MG TAB ONE (10:24)
[2021-02-08] MEDS ORDERED: Lidocaine 1% w/Epinephrine 1:100K 20 ML VIAL ONE (12:04)
[2021-02-08] MEDS ORDERED: Bupivacaine 0.25% HCL 30 ML VIAL ONE (12:04)
[2021-02-08] MEDS ORDERED: Scopolamine 1.5 mg/72 hour Patch ONE (12:13)
[2021-02-08] MEDS ORDERED: Fentanyl 100 MCG/2 ML VIAL ONE ×2 (12:14→14:22)
[2021-02-08] MEDS ORDERED: Famotidine/PF 20 mg/2ml Vial ONE (12:15)
[2021-02-08 12:34] LABS: Anion Gap 13 mmol/L (10-20); BUN (Urea Nitrogen) 13 mg/dL (9.8-20.1); Calc. Creatinine Clearance 98 mL/min (70-130); Calcium 8.9 mg/dL (7.8-10.44); Carbon Dioxide 21 mmol/L (23-31); Chloride 109 mmol/L (98-107); Glucose 97 mg/dL (83-110); Potassium 4.1 mmol/L (3.5-5.1); Sodium 139 mmol/L (136-145)
[2021-02-08] MEDS ORDERED: ePHEDrine 50 MG/ML VIAL ONE (12:38)
[2021-02-08] MEDS ORDERED: Lidocaine 1% PF 5 ML VIAL ONE (12:38)
[2021-02-08] MEDS ORDERED: Ondansetron PF 4 MG/2 ML Vial ONE (12:38)
[2021-02-08] MEDS ORDERED: Metoclopramide HCl 10 MG/2 ML VIAL ONE (12:38)
[2021-02-08] MEDS ORDERED: PROPOFOL 200 MG/20 ML VIAL ONE (12:38)
[2021-02-08] MEDS ORDERED: Dexamethasone 20 MG/5 ML VIAL ONE (12:38)
[2021-02-08] MEDS ORDERED: hydrALAZINE 20 MG/ML VIAL ONE (14:02)
== END 2021-02-08 16:00 | disposition home or self-care (01) ==
LOC: SDC 08:34
PROVIDERS: ATTEND Surgery
PROC: 07B60ZX Excision of Left Axillary Lymphatic, Open Approach, Diagnostic (ICD-10-PCS; principal; 2021-02-08)
PROC: 0JB60ZZ Excision of Chest Subcutaneous Tissue and Fascia, Open Approach (ICD-10-PCS; 2021-02-08)
DX: C79.89 Secondary malignant neoplasm of other specified sites (principal); C43.59 Malignant melanoma of other part of trunk; C77.3 Secondary and unspecified malignant neoplasm of axilla and upper limb lymph nodes; K21.9 Gastro-esophageal reflux disease without esophagitis; M06.9 Rheumatoid arthritis, unspecified; E78.00 Pure hypercholesterolemia, unspecified; Z87.891 Personal history of nicotine dependence; Z79.899 Other long term (current) drug therapy; Z88.1 Allergy status to other antibiotic agents; Z88.2 Allergy status to sulfonamides; Z88.5 Allergy status to narcotic agent; Z88.6 Allergy status to analgesic agent; Z91.013 Allergy to seafood; Z91.048 Other nonmedicinal substance allergy status
CPT/HCPCS: 80048; 88305; 88307; J0360; J0690; J1100; J2405; J2704; J2765; J3010; J3490; S0020; S0028

== ENCOUNTER 2021-04-04 10:34 | Outpatient (CLI) | payer MEDICARE | END 2021-04-04 10:35 | disposition home or self-care (01) | LOC: PET 10:34 | PROVIDERS: ATTEND Internal Medicine Hematology & Oncology | DX: C43.59 Malignant melanoma of other part of trunk (principal); R59.0 Localized enlarged lymph nodes | CPT/HCPCS: 78816; A9552 ==

== ENCOUNTER 2021-07-09 10:15 | Outpatient (CLI) | payer MEDICARE | END 2021-07-09 10:16 | disposition home or self-care (01) | LOC: PET 10:15 | PROVIDERS: ATTEND Internal Medicine Hematology & Oncology | DX: C43.9 Malignant melanoma of skin, unspecified (principal); C77.1 Secondary and unspecified malignant neoplasm of intrathoracic lymph nodes; C78.02 Secondary malignant neoplasm of left lung; C78.01 Secondary malignant neoplasm of right lung; C79.51 Secondary malignant neoplasm of bone; C79.89 Secondary malignant neoplasm of other specified sites | CPT/HCPCS: 78816; A9552 ==

== ENCOUNTER 2021-07-18 07:26 | Day surgery (SDC) | payer MEDICARE ==
[2021-07-16 10:30] VITALS: BMI 39.9
[2021-07-18] MEDS ORDERED: Acetaminophen 500 MG TAB ONE (08:19)
[2021-07-18] MEDS ORDERED: Ketorolac Tromethamine 30 MG/ML VIAL ONE (08:19)
[2021-07-18] MEDS ORDERED: Xylocaine 1% w/ Epi 1:100K 10 ML VIAL ONE (10:06)
[2021-07-18] MEDS ORDERED: Bupivacaine 0.25% HCL 30 ML VIAL ONE (10:06)
[2021-07-18] MEDS ORDERED: ceFAZolin 2 GM/Dextrose 50 ML IVPB ONE (10:18)
[2021-07-18] MEDS ORDERED: PROPOFOL 200 MG/20 ML VIAL ONE (10:29)
[2021-07-18] MEDS ORDERED: Lidocaine 1% PF 5 ML VIAL ONE (10:29)
== END 2021-07-18 13:48 | disposition home or self-care (01) ==
LOC: SDC 07:26
PROVIDERS: ATTEND Surgery
PROC: 0JH60WZ Insertion of Totally Implantable Vascular Access Device into Chest Subcutaneous Tissue and Fascia, Open Approach (ICD-10-PCS; principal; 2021-07-18)
PROC: 02HV33Z Insertion of Infusion Device into Superior Vena Cava, Percutaneous Approach (ICD-10-PCS; 2021-07-18)
DX: C43.9 Malignant melanoma of skin, unspecified (principal); C79.89 Secondary malignant neoplasm of other specified sites; K21.9 Gastro-esophageal reflux disease without esophagitis; M06.9 Rheumatoid arthritis, unspecified; Z87.891 Personal history of nicotine dependence; Z79.899 Other long term (current) drug therapy; Z88.1 Allergy status to other antibiotic agents; Z88.2 Allergy status to sulfonamides; Z88.5 Allergy status to narcotic agent; Z88.8 Allergy status to other drugs, medicaments and biological substances; Z91.013 Allergy to seafood; Z91.041 Radiographic dye allergy status; Z91.048 Other nonmedicinal substance allergy status; Z98.1 Arthrodesis status
CPT/HCPCS: 71045; J0690; J1642; J1885; J2704; S0020

== ENCOUNTER 2021-09-29 13:40 | Emergency (ER) | payer MEDICARE ==
[2021-09-29 14:37] LABS: #Eosinphils 0.1 thou/uL (0.0-0.7); #Monocytes 0.7 thou/uL (0.11-0.59); #Neutrophils 3.3 thou/uL (1.40-6.50); %Basophils 0.9 % (0.0-1.0); %Eosinophils 1.1 % (0.0-10.0); %Lymphocytes 19.8 % (21.0-51.0); %Monocytes 13.3 % (0.0-10.0); %Neutrophils 64.8 % (42.0-75.0); Mean Corpuscular HGB CONC 34.6 g/dL (32.0-36.0); Mean Corpuscular Hemoglobin 33.4 pg (27.0-31.0); Mean Corpuscular Volume 96.5 fL (78.0-98.0); Platelet Count 301 thou/uL (130-400); RBC Distribution Width 12.9 % (11.5-14.5); White Blood Cell (WBC) Count 5.1 thou/uL (4.8-10.8)
[2021-09-29 14:53] LABS: Bilirubin Negative (Negative); Blood, Urine Negative (Negative); Clarity Clear (Clear); Glucose, Urine (Dipstick) Normal (Negative); Ketone, Urine Negative (Negative); Leukocyte Negative Leu/uL (Negative); Nitrite Negative (Negative); Protein, Urine (Dipstick) Negative (Neg-Trace); Specific Gravity, Urine 1.009 (1.002-1.036); Urobilinogen Normal mg/dL (Less than 2)
[2021-09-29 14:59] LABS: ALT (SGPT) 18 U/L (8-55); AST (SGOT) 24 U/L (5-34); Albumin 3.5 g/dL (3.4-4.8); Alkaline Phosphatase 55 U/L (40-110); Anion Gap 14 mmol/L (10-20); BUN (Urea Nitrogen) 7 mg/dL (9.8-20.1); Bilirubin, Total 0.5 mg/dL (0.2-1.2); CK (CPK) 48 U/L (29-168); Calc. Creatinine Clearance 0 mL/min (70-130); Carbon Dioxide 20 mmol/L (23-31); Chloride 100 mmol/L (98-107); Globulin 2.8 g/dL (2.4-3.5); Glucose 107 mg/dL (83-110); Magnesium 1.9 mg/dL (1.6-2.6); Potassium 3.8 mmol/L (3.5-5.1); Protein, Total 6.3 g/dL (5.8-8.1); Sodium 130 mmol/L (136-145)
== END 2021-09-29 21:07 ==
LOC: ERS 13:40
DX: E86.0 Dehydration (principal); E87.1 Hypo-osmolality and hyponatremia; Z73.6 Limitation of activities due to disability; M06.9 Rheumatoid arthritis, unspecified; Z79.899 Other long term (current) drug therapy
CPT/HCPCS: 36415; 71045; 80053; 81003; 82550; 83735; 84484; 85025; 93005; 94760; 96360; 96361

== ENCOUNTER 2021-10-24 09:31 | Inpatient (IN) | payer MEDICARE ==
[2021-10-24 10:13] LABS: Bilirubin Negative (Negative); Blood, Urine 3+ (Negative); Clarity Turbid (Clear); Glucose, Urine (Dipstick) Normal (Negative); Ketone, Urine 40 mg/dL (Negative); Leukocyte 500 Leu/uL (Negative); Nitrite Negative (Negative); Protein, Urine (Dipstick) 100 mg/dL (Neg-Trace); Specific Gravity, Urine 1.029 (1.002-1.036); Urobilinogen Normal mg/dL (Less than 2)
[2021-10-24 10:30] LABS: #Basophils 0.1 thou/uL (0.0-0.2); #Eosinphils 0.3 thou/uL (0.0-0.7); #Lymphocytes 1.1 thou/uL (1.20-3.40); #Monocytes 0.6 thou/uL (0.11-0.59); #Neutrophils 5.1 thou/uL (1.40-6.50); %Basophils 0.8 % (0.0-1.0); %Eosinophils 3.8 % (0.0-10.0); %Lymphocytes 14.8 % (21.0-51.0); %Monocytes 8.8 % (0.0-10.0); %Neutrophils 71.8 % (42.0-75.0); Hemoglobin 15.1 g/dL (12.0-16.0); Mean Corpuscular HGB CONC 34.1 g/dL (32.0-36.0); Mean Corpuscular Hemoglobin 33.3 pg (27.0-31.0); Mean Corpuscular Volume 97.9 fL (78.0-98.0); Mean Platelet Volume 7.1 fL (7.4-10.4); Platelet Count 134 thou/uL (130-400); RBC Distribution Width 16.2 % (11.5-14.5); Red Blood Cell (RBC) Count 4.52 mill/uL (4.20-5.40); White Blood Cell (WBC) Count 7.2 thou/uL (4.8-10.8)
[2021-10-24 10:31] LABS: Squamous Epithelial 0-3 HPF (0-3); Yeast-Budding 2+ HPF (None Seen)
[2021-10-24 10:41] LABS: INR-International Normal Ratio 1.1; PTT 27.1 sec (22.9-36.1); Prothrombin Time 14.3 sec (12.0-14.7)
[2021-10-24 11:11] LABS: ALT (SGPT) 55 U/L (8-55); AST (SGOT) 31 U/L (5-34); Alkaline Phosphatase 87 U/L (40-110); Anion Gap 16 mmol/L (10-20); BUN (Urea Nitrogen) 14 mg/dL (9.8-20.1); Calc. Creatinine Clearance 0 mL/min (70-130); Calcium 9.2 mg/dL (7.8-10.44); Carbon Dioxide 20 mmol/L (23-31); Chloride 97 mmol/L (98-107); Glucose 121 mg/dL (83-110); Potassium 3.4 mmol/L (3.5-5.1); Sodium 130 mmol/L (136-145)
[2021-10-24] MEDS ORDERED: Enoxaparin Sodium 30 MG/0.3 ML SYRINGE ONE ×2 (12:10→12:14)
[2021-10-24] MEDS ORDERED: Enoxaparin Sodium 80 MG/0.8 ML SYRINGE ONE (12:10)
[2021-10-24] MEDS ORDERED: Morphine 2 MG/ML VIAL ONE (12:26)
[2021-10-24] MEDS ORDERED: Ondansetron ODT 4 MG TAB PO PRN (13:24)
[2021-10-24] MEDS ORDERED: Artificial Tear Sol 15 ML BOT EA EYE PRN (13:24)
[2021-10-24] MEDS ORDERED: Moisturizing Cream (Eucerin) 113 GM JAR TOP PRN (13:24)
[2021-10-24] MEDS ORDERED: Ondansetron PF 4 MG/2 ML Vial IVP PRN (13:24)
[2021-10-24 13:38] LABS: SARS-CoV-2 NAA Rapid Test Not Detected (NotDetected)
[2021-10-24] MEDS ORDERED: Electrolyte Replacement Protocol 1 EACH FS SCH (14:00)
[2021-10-24 14:31] LABS: INR-International Normal Ratio 1.2; PTT 38.4 sec (22.9-36.1); Prothrombin Time 15.6 sec (12.0-14.7)
[2021-10-24 14:41] LABS: Magnesium 1.7 mg/dL (1.6-2.6); Phosphorus 2.8 mg/dL (2.3-4.7)
[2021-10-24 15:51] VITALS: BMI 36.6
[2021-10-24] MEDS: Morphine 2 MG/ML VIAL SLOW IVP PRN ×2 (16:48→22:25)
[2021-10-24] MEDS: Apixaban 5 MG TAB PO SCH (20:30)
[2021-10-24] MEDS ORDERED: Potassium Chloride 40 MEQ in Premix Bag 1 BAG IVPB SCH (21:00)
[2021-10-24] MEDS ORDERED: Enoxaparin Sodium 100 MG/ML SYRINGE SC SCH (21:00)
[2021-10-24] MEDS ORDERED: Magnesium 2 GM/50 ML(in water) 2 GM in Premix Bag 1 BAG IVPB SCH (21:00)
[2021-10-24] MEDS: Famotidine 40 MG/4 ML VIAL SLOW IVP SCH (22:08)
[2021-10-25 08:05] VITALS: BP 125/76; TEMP 98.5
[2021-10-25 09:49] LABS: ALT (SGPT) 47 U/L (8-55); AST (SGOT) 25 U/L (5-34); Albumin 3.4 g/dL (3.4-4.8); Alkaline Phosphatase 73 U/L (40-110); Anion Gap 14 mmol/L (10-20); BUN (Urea Nitrogen) 13 mg/dL (9.8-20.1); Bilirubin, Total 0.8 mg/dL (0.2-1.2); Calc. Creatinine Clearance 104 mL/min (70-130); Calcium 8.7 mg/dL (7.8-10.44); Carbon Dioxide 19 mmol/L (23-31); Chloride 100 mmol/L (98-107); Globulin 2.6 g/dL (2.4-3.5); Glucose 114 mg/dL (83-110); Potassium 3.5 mmol/L (3.5-5.1); Sodium 129 mmol/L (136-145)
[2021-10-25 09:50] LABS: #Eosinphils 0.2 thou/uL (0.0-0.7); #Lymphocytes 0.8 thou/uL (1.20-3.40); #Monocytes 0.7 thou/uL (0.11-0.59); #Neutrophils 5.6 thou/uL (1.40-6.50); %Basophils 0.5 % (0.0-1.0); %Eosinophils 2.3 % (0.0-10.0); %Lymphocytes 11.3 % (21.0-51.0); %Neutrophils 76.9 % (42.0-75.0); Hemoglobin 13.4 g/dL (12.0-16.0); Mean Corpuscular HGB CONC 34.2 g/dL (32.0-36.0); Mean Corpuscular Hemoglobin 33.7 pg (27.0-31.0); Mean Corpuscular Volume 98.4 fL (78.0-98.0); Mean Platelet Volume 7.2 fL (7.4-10.4); Platelet Count 123 thou/uL (130-400); RBC Distribution Width 16.1 % (11.5-14.5); Red Blood Cell (RBC) Count 3.98 mill/uL (4.20-5.40); White Blood Cell (WBC) Count 7.3 thou/uL (4.8-10.8)
[2021-10-25] MEDS: Apixaban 5 MG TAB PO SCH (10:18)
[2021-10-25] MEDS: Famotidine 40 MG/4 ML VIAL SLOW IVP SCH (10:18)
[2021-10-25] MEDS: Morphine 2 MG/ML VIAL SLOW IVP PRN ×2 (10:32→13:32)
[2021-10-25] MEDS: Potassium Chloride 20 MEQ in Premix Bag 1 BAG IVPB SCH ×2 (13:08→13:59)
== END 2021-10-25 16:18 | disposition hospice, inpatient (51) | DRG 175 ==
LOC: ERS 09:31 → T4-B 12:27
PROVIDERS: ADMIT Internal Medicine; ATTEND Internal Medicine
DX: I26.99 Other pulmonary embolism without acute cor pulmonale (principal); Z66 Do not resuscitate; Z20.822 Contact with and (suspected) exposure to COVID-19; Z51.5 Encounter for palliative care; J96.01 Acute respiratory failure with hypoxia; R65.10 Systemic inflammatory response syndrome (SIRS) of non-infectious origin without acute organ dysfunction; E87.1 Hypo-osmolality and hyponatremia; I82.411 Acute embolism and thrombosis of right femoral vein; F10.21 Alcohol dependence, in remission; M06.9 Rheumatoid arthritis, unspecified; F32.A Depression, unspecified; I50.9 Heart failure, unspecified; Z88.1 Allergy status to other antibiotic agents; Z91.041 Radiographic dye allergy status; Z88.5 Allergy status to narcotic agent; Z88.2 Allergy status to sulfonamides; Z88.8 Allergy status to other drugs, medicaments and biological substances; Z91.09 Other allergy status, other than to drugs and biological substances; Z85.820 Personal history of malignant melanoma of skin; Z90.49 Acquired absence of other specified parts of digestive tract; Z90.89 Acquired absence of other organs; Z90.710 Acquired absence of both cervix and uterus; Z98.890 Other specified postprocedural states; Z87.891 Personal history of nicotine dependence; Z79.899 Other long term (current) drug therapy; Z95.0 Presence of cardiac pacemaker
CPT/HCPCS: 36415; 36416; 71045; 74176; 78451; 80053; 81003; 81015; 83605; 83735; 83880; 84100; 84145; 84484; 85025; 85610; 85730; 87040; 87077; 87086; 87149; 87804; 93005; 93970; 94760; A9540; J1650; J1956; J2270; J2405; J3475; J3480; U0002

== ENCOUNTER 2021-10-25 16:53 | Inpatient (IN) | payer OTHER ==
[2021-10-25] MEDS ORDERED: Senokot 8.6 MG TAB PO PRN (19:08)
[2021-10-25] MEDS ORDERED: Hyoscyamine Sulfate SL 0.125 mg Tablet SL PRN (19:15)
[2021-10-25] MEDS ORDERED: Scopolamine 1.5 mg/72 hour Patch TOP PRN (19:15)
[2021-10-25] MEDS ORDERED: Haloperidol Lactate 5 MG/ML VIAL SLOW IVP PRN (19:15)
[2021-10-25] MEDS ORDERED: Promethazine HCl 25 MG SUPP PR PRN (19:15)
[2021-10-25] MEDS ORDERED: Loperamide HCl 2 MG CAP PO PRN (19:15)
[2021-10-25] MEDS ORDERED: Acetaminophen 650 MG Suppository PR PRN (19:15)
[2021-10-25] MEDS ORDERED: Ondansetron PF 4 MG/2 ML Vial IVP PRN (19:15)
[2021-10-25] MEDS ORDERED: diphenhydrAMINE 50 MG/ML VIAL IVP PRN (19:15)
[2021-10-25] MEDS: Morphine 4 MG/ML VIAL SLOW IVP PRN (19:55)
[2021-10-25 22:50] VITALS: BMI 36.6
[2021-10-26] MEDS: Morphine 4 MG/ML VIAL SLOW IVP PRN ×3 (08:42→21:24)
[2021-10-26] MEDS: Lorazepam 2 MG/ML VIAL SLOW IVP PRN (13:06)
[2021-10-27] MEDS: Morphine 4 MG/ML VIAL SLOW IVP PRN ×3 (04:16→15:30)
[2021-10-27] MEDS: Lorazepam 2 MG/ML VIAL SLOW IVP PRN ×2 (11:03→16:00)
[2021-10-27] MEDS: Morphine 10 MG/0.5 ML ORAL SYRINGE SL PRN ×4 (11:05→18:39)
[2021-10-27] MEDS ORDERED: Morphine 4 MG/ML VIAL SLOW IVP SCH ×2 (12:30→17:00)
[2021-10-27] MEDS: Lorazepam 2 MG/ML VIAL SLOW IVP SCH ×2 (14:10→20:45)
[2021-10-27] MEDS ORDERED: Morphine 2 MG/ML VIAL SLOW IVP PRN (16:52)
[2021-10-27] MEDS ORDERED: Lorazepam 2 MG/ML VIAL SLOW IVP SCH (17:00)
[2021-10-27] MEDS: Morphine 4 MG/ML VIAL SLOW IVP SCH ×2 (17:38→23:22)
[2021-10-27 20:57] VITALS: BP 137/72; TEMP 98.8
[2021-10-28] MEDS: Morphine 4 MG/ML VIAL SLOW IVP PRN (01:34)
[2021-10-28] MEDS: Lorazepam 2 MG/ML VIAL SLOW IVP PRN (03:38)
[2021-10-28] MEDS ORDERED: Morphine 2 MG/ML VIAL SLOW IVP SCH (04:00)
== END 2021-10-28 05:18 | disposition expired | DRG 951 ==
LOC: T4-B 18:02
PROVIDERS: ADMIT Family Medicine; ATTEND Family Medicine
DX: Z51.5 Encounter for palliative care (principal); J96.01 Acute respiratory failure with hypoxia; I26.99 Other pulmonary embolism without acute cor pulmonale; E87.1 Hypo-osmolality and hyponatremia; Z66 Do not resuscitate; Z20.822 Contact with and (suspected) exposure to COVID-19; M06.9 Rheumatoid arthritis, unspecified; F32.A Depression, unspecified; M48.00 Spinal stenosis, site unspecified; F01.50 Vascular dementia, unspecified severity, without behavioral disturbance, psychotic disturbance, mood disturbance, and anxiety; I50.9 Heart failure, unspecified; Z88.2 Allergy status to sulfonamides; Z88.5 Allergy status to narcotic agent; Z88.6 Allergy status to analgesic agent; Z79.899 Other long term (current) drug therapy; Z91.041 Radiographic dye allergy status; Z88.1 Allergy status to other antibiotic agents
CPT/HCPCS: J2060; J2270